=== PATIENT | female | born 1940 | race Asian ===

== ENCOUNTER 2018-07-10 15:47 | Emergency (ER) | payer MEDICARE, OTHER, SELFPAY ==
[2018-07-10 15:51] VITALS: BP 88/46; PULSE 65; RESP 14; TEMP 36.2; O2SAT 100; BMI 21.5
--- NOTE | 2018-07-10 16:50 | PC.NURSE ---
Seen at [facility] 2 days ago and told bronchitis
--- NOTE | 2018-07-10 16:57 | DI.RAD.S_ITS ---
PROCEDURE: XR CHEST 2V INDICATIONS: weakness TECHNIQUE: 2 views of the chest were acquired. COMPARISON: [facility], CHEST 2 VIEW, 11/05/2014, 14:59. [facility], CHEST 2 VIEW, 01/26/2015, 15:38. [facility], CHEST 2 VIEW, 02/01/2015, 15:19. [facility], CHEST 2 VIEW, 01/17/2016, 13:28. FINDINGS: Surgical changes and devices: None. Lungs and pleura: Lungs are clear, yet hyperexpanded. No pleural effusions or pneumothorax. Mediastinum: The cardiac contours are within normal limits. The aorta demonstrates calcification and tortuosity. Bones and chest wall: No suspicious bony abnormalities. Age-appropriate bony degenerative changes are seen. Soft tissues appear unremarkable. IMPRESSION: No acute cardiopulmonary process is seen. Dictated by: Miguel A Carmona M.D. on 07/10/2018 at 16:22 Approved by: Miguel A Carmona M.D. on 07/10/2018 at 16:24
[2018-07-10 17:04] LABS: Add Manual Diff / Slide Review NO; Basophils Absolute Auto 100 /uL (0-100); Basophils Percent Auto 1.5 % (0-2); Eosinophils Absolute Auto 100 /uL (0-450); Eosinophils Percent Auto 0.8 % (2-4); Hematocrit 28.6 % (36-46); Hemoglobin 9.3 g/dL (12.0-16.0); Lymphocytes Absolute Auto 1700 /uL (1100-4500); Lymphocytes Percent Auto 18.7 % (25-40); Mean Corpuscular HGB Conc 32.5 % (30-36); Mean Corpuscular Hemoglobin 32.4 PG (26-34); Mean Corpuscular Volume 99.5 fL (80-100); Monocytes Absolute Auto 1500 /uL (0-900); Monocytes Percent Auto 17.1 % (3-14); Neutrophils Absolute Auto 5600 /uL (1500-7000); Neutrophils Percent Auto 61.9 % (50-75); Red Blood Cell Count 2.87 X10^6/uL (4.0-5.2); Red Cell Distribution Width 18.1 % (11.6-14.8)
[2018-07-10 17:07] LABS: Alanine Aminotransferase 18 IU/L (9-52); Albumin 3.4 g/dL (3.5-5.0); Albumin Globulin Ratio 0.9 (1.0-2.8); Alkaline Phosphatase 48 U/L (38-126); Aspartate Aminotransferase 53 IU/L (14-36); BUN Creatinine Ratio 28.9 (6-22); Bilirubin Total 1.1 mg/dL (0.2-1.3); Blood Urea Nitrogen 55 mg/dL (7-17); Calcium 8.5 mg/dL (8.4-10.2); Carbon Dioxide 20 mmol/L (22-32); Chloride 97 mmol/L (98-107); Estimated Glomerular Filt Rate 25.7 mL/min (>60); Glucose 113 mg/dL (80-110); HEMOLYSIS 91 (0-50); Potassium 3.5 mmol/L (3.4-5.1); Sodium 127 mmol/L (137-145); Total Protein 7.4 g/dL (6.3-8.2)
[2018-07-10 17:12] LABS: Appearance Urine UA CLOUDY; Bilirubin Urine UA NEGATIVE (NEGATIVE); Color Urine UA YELLOW; Glucose Urine UA NEGATIVE (Negative); Ketones Urine UA NEGATIVE (NEGATIVE); Leukocyte Esterase Urine UA 2+ (NEGATIVE); Nitrite Urine UA NEGATIVE (Negative); Occult Blood Urine UA NEGATIVE (Negative); Protein Urine UA NEGATIVE (Negative); Urobilinogen Urine UA 0.2 E.U./dL (0.2)
[2018-07-10 17:20] LABS: Bacteria Urine Many (>30); Culture Indicated Urine Specimen Cultured; RBC Urine 1-5/HPF (0-5/HPF); Squamous Epithelial Cell Urine 0-1 /HPF (0-5/HPF); WBC Urine 10-30/HPF (0-5/HPF)
[2018-07-10 17:21] LABS: Platelet Count 208 X10^3/uL (150-400)
[2018-07-10] MEDS: SODIUM CHLORIDE 0.9% 1,000 ML 1000 ML IV (17:29)
[2018-07-10 18:30] VITALS: BP 113/99; PULSE 77; RESP 20; O2SAT 96
--- NOTE | 2018-07-16 19:53 | ED.DIZZY ---
HPI - Dizziness General Chief Complaint: Dizziness Stated Complaint: orthostatic per RN Time Seen by Provider: 07/10/18 16:37 Source: patient Mode of arrival: ambulatory Limitations: no limitations History of Present Illness HPI Narrative: Patient comes emergency department complaining of lightheadedness. She is currently being treated for for rheumatoid arthritis, and has been anemic for years. She has been dealing with episodes of lightheadedness, and has seen her oncologist and primary doctor for this. However, today she fell weak, and was advised to come to the emergency department. Patient denies fevers. No chest pain or shortness of breath. No cough. No abdominal pain, nausea, vomiting, diarrhea, or dysuria. No black tarry stools or blood in stools or urine. Related Data Home Medications Medication Instructions Recorded Confirmed atenolol 50 mg PO DAILY 07/10/18 07/10/18 celecoxib 200 mg PO DAILY 07/10/18 07/11/18 conjugated estrogens [Premarin] 0.625 mg PO QWEEK 07/10/18 07/11/18 cyclobenzaprine 10 - 20 mg PO BEDTIME 07/10/18 07/11/18 dexamethasone 4 mg PO DAILYX7 07/10/18 07/10/18 diphenhydramine HCl [Benadryl 25 mg PO BEDTIME 07/10/18 07/10/18 Allergy] folic acid 1 mg PO DAILY 07/10/18 07/10/18 gabapentin 100 mg PO TID 07/10/18 07/11/18 hydrochlorothiazide 25 mg PO DAILY 07/10/18 07/10/18 leflunomide [Arava] 20 mg PO DAILY 07/10/18 07/10/18 lovastatin 20 mg PO DAILY 07/10/18 07/11/18 methotrexate sodium 10 mg PO QWEEK 07/10/18 07/11/18 tramadol 50 mg PO TID 07/10/18 07/10/18 potassium chloride 10 meq PO DAILY 07/11/18 07/11/18 Previous Rx's Medication Instructions Recorded epinephrine 0.3 mg IM X1 #1 pac 02/29/16 docusate sodium [DOK] 100 mg PO QDAY #60 tab 06/27/16 cetirizine 10 mg PO QDAY #90 tab 10/02/16 Allergies Allergy/AdvReac Type Severity Reaction Status Date / Time ciprofloxacin [CIPROFLOXACIN] Allergy Unknown Verified 07/10/18 15:51 doxycycline [DOXYCYCLINE] Allergy Unknown Verified 07/10/18 15:51 erythromycin base Allergy Unknown Verified 07/10/18 15:51 [ERYTHROMYCIN BASE] hydrocodone [From VICODIN] Allergy Unknown Verified 07/10/18 15:51 penicillin V [From PEN-VEE K] Allergy Unknown Verified 07/10/18 15:51 Review of Systems Constitutional Denies chills, Denies fever(s), Denies lethargy and Denies weakness Eyes Denies change in vision, Denies eye discharge, Denies irritation and Denies loss of vision ENT Ears, Nose, Mouth, and Throat: Denies change in voice, Denies neck pain and Denies sore throat Cardiovascular Denies chest pain, Denies irregular heart rhythm, Reports lightheadedness, Denies palpitations, Denies dyspnea, Denies dyspnea on exertion and Denies orthopnea Respiratory Denies cough, Denies dyspnea, Denies dyspnea on exertion and Denies wheezing Gastrointestinal Gastrointestinal: Denies abdominal pain, Denies change in bowel habits, Denies diarrhea, Denies nausea and Denies vomiting Genitourinary Denies hematuria, Denies flank pain, Denies urinary incontinence and Denies urinary urgency Musculoskeletal Denies neck pain Integumentary/Breasts Denies pruritus, Denies erythema, Denies rash and Denies wounds Neurologic Denies confusion, Denies loss of vision and Denies weakness Psychiatric Denies anxiety, Denies confusion, Denies depression, Denies homicidal ideation and Denies suicidal ideation Endocrine Denies palpitations Hematologic/Lymphatic Denies easy bruising Allergic/Immunologic Denies wheezing [facility] Medical History (Updated 07/16/18 @ 19:56 by Lata Tabor MD) Rheumatoid arthritis (Acute) Macrocytic anemia (Acute) Orthostatic hypotension (Acute) Acute dehydration (Acute) Anemia (Acute) Surgical History (Updated 07/16/18 @ 19:56 by Lata Tabor MD) Status post appendectomy Status post hemorrhoidectomy Status post hysterectomy History of cataract removal with insertion of prosthetic lens Family History Brother Cancer Diabetes mellitus Heart disease Hypertension Hyperlipidemia Brother Cancer Diabetes mellitus Heart disease Hypertension Hyperlipidemia Sister Age: 89 Heart disease Hypertension Hyperlipidemia Social History Smoking Status: Smoker, status unknown Family History Brother Cancer Diabetes mellitus Heart disease Hypertension Hyperlipidemia Brother Cancer Diabetes mellitus Heart disease Hypertension Hyperlipidemia Sister Age: 89 Heart disease Hypertension Hyperlipidemia Social History Smoking Status: Smoker, status unknown Exam Initial Vital Signs Initial Vital Signs: Vital Signs Temperature 97.1 F L 07/10/18 15:51 Pulse Rate 65 07/10/18 15:51 Respiratory Rate 14 07/10/18 15:51 Blood Pressure 88/46 L 07/10/18 15:51 Pulse Oximetry 100 07/10/18 15:51 Const General: cooperative and well developed Nutritional Appearance: well nourished Orientation: alert, awake, oriented x3 and not confused HENIA Head: normocephalic and atraumatic Ears: external ears normal Nose: external nose normal and No nasal discharge Face and sinus: face symmetric and No dry mucous membranes Mouth: oral mucosae normal and moist mucous membranes Teeth and gingiva: dentition normal Eyes General: appearance normal, both eyes and all related structures Eyelids: eyelids normal Conjunctivae: conjunctivae normal Sclera: sclerae normal Pupils: PERRL EOM: EOM intact bilaterally Neck Neck: normal visual inspection, trachea midline, No lymphadenopathy, No midline deformity and No JVD Lymphatic: No lymphedema Chest Chest: normal inspection of the chest Resp Effort & Inspection: normal respiratory effort, able to speak in complete sentences, no respiratory distress and no use of accessory muscles Auscultation: clear to auscultation bilaterally, no rales, no rhonchi and no wheezes Cardio Rate: regular rate Rhythm: regular rhythm Heart Sounds: no click, no gallops, no murmurs and no rubs Pulses: normal peripheral pulses GI Inspection: non-distended Palpation: soft, no hepatosplenomegaly, No guarding, No pulsatile mass and No tender Auscultation: normal bowel sounds Back/Spine/Pelvis Back: No CVA tenderness Cervical Spine: cervical ROM normal and No pain with cervical ROM Thoracic/Lumbar Spine: thoracic and lumbar spine normal to inspection Skin General: no rashes or lesions noted, No jaundice and No petechiae Neuro General: alert, oriented x3, gait normal and no focal motor deficits Speech: speech normal Extrem General: full ROM, no clubbing, cyanosis or edema, no pedal edema and no calf tenderness Psych Appearance: well kempt Mental Status: mental status grossly normal Attitude: cooperative Thought Content: normal and suicidality Judgment: judgment good Course Course Narrative: Patient was treated with IV fluids, and worked up for her lightheadedness with labs and EKG. Patient was found to be feeling better after IV fluids. Her hemoglobin was 9.3, which was comparable to prior levels we have had for her. I discussed with the patient that it is important to stay hydrated. We have discussed follow-up, as well as the usual indications for return. Orders Ordered: Discontinued Medications Sodium Chloride (Normal Saline 0.9%) 1,000 mls @ 1,000 mls/hr IV BOLUS ONE Stop: 07/10/18 18:27 Last Infusion: 07/10/18 18:22 Dose: 0 mls/hr Admin: 07/10/18 17:29 Dose: 1,000 mls/hr MDM - Dizziness Medical Records Attestation: I reviewed the patient's medical records. Lab Data Attestation: I reviewed the patient's lab results. Result diagrams: 07/10/18 16:40 07/10/18 16:40 Lab Results 07/10/18 07/10/18 07/10/18 Range/Units 16:40 16:40 17:05 WBC 9.0 (4.5-11.0) X10^3/uL RBC 2.87 L (4.0-5.2) X10^6/uL Hgb 9.3 L (12.0-16.0) g/dL Hct 28.6 L (36-46) % MCV 99.5 (80-100) fL MCH 32.4 (26-34) PG MCHC 32.5 (30-36) % RDW 18.1 H (11.6-14.8) % Plt Count 208 (150-400) X10^3/uL Neut % (Auto) 61.9 (50-75) % Lymph % (Auto) 18.7 L (25-40) % [place] % (Auto) 17.1 H (3-14) % Eos % (Auto) 0.8 L (2-4) % Baso % (Auto) 1.5 (0-2) % Neut # (Auto) 5600 (8282-2244) /uL Lymph # (Auto) 1700 (7323-9638) /uL [place] # (Auto) 1500 H (0-900) /uL Eos # (Auto) 100 (0-450) /uL Baso # (Auto) 100 (0-100) /uL Sodium 127 L (137-145) mmol/L Potassium 3.5 (3.4-5.1) mmol/L Chloride 97 L (98-107) mmol/L Carbon Dioxide 20 L (22-32) mmol/L BUN 55 H (7-17) mg/dL Creatinine 1.90 H (0.52-1.04) mg/dL Estimated GFR 25.7 L (>60) mL/min BUN/Creatinine Ratio 28.9 H (6-22) Glucose 113 H (80-110) mg/dL Calcium 8.5 (8.4-10.2) mg/dL Total Bilirubin 1.1 (0.2-1.3) mg/dL AST 53 H (14-36) IU/L ALT 18 (9-52) IU/L Alkaline Phosphatase 48 (38-126) U/L Total Protein 7.4 (6.3-8.2) g/dL Albumin 3.4 L (3.5-5.0) g/dL Globulin 4.0 (1.7-4.1) g/dL Albumin/Globulin Ratio 0.9 L (1.0-2.8) Urine Color Yellow Urine Appearance Cloudy Urine pH 5.0 (4.5-8.0) Ur Specific [place] 1.020 (1.000-1.035) Urine Protein Negative (Negative) Urine Glucose (UA) Negative (Negative) g/dL Urine Ketones Negative (NEGATIVE) Urine Occult Blood Negative (Negative) Urine Nitrate Negative (Negative) Urine Bilirubin Negative (NEGATIVE) Urine Urobilinogen 0.2 (0.2) E.U./dL Ur Leukocyte Esterase 2+ H (NEGATIVE) Urine RBC 1-5/hpf (0-5/HPF) Urine WBC 10-30/hpf H (0-5/HPF) Ur Squamous Epith Cells 0-1 /hpf (0-5/HPF) Urine Bacteria Many (>30) H (None) Ur Culture Indicated? Specimen cultured Discharge Plan Departure Patient Disposition: Home Clinical Impression: Acute dehydration Anemia Qualifiers: Anemia type: unspecified type Qualified Code(s): D64.9 - Anemia, unspecified Discharge Date/Time: 07/10/18 18:57 Interventions: ED Discharge Assessment Last Done: 07/10/18 18:56 Instructions: DI for Dehydration -- Adult, DI for Iron Deficiency Anemia-Adult Activity Restrictions/Additional Instructions: Your labs are not significantly changed from previous values today. You have shown signs of dehydration, and have been treated for this with IV fluids. Please continue to drink plenty of fluids. You may find it helpful to keep a large jug at your bedside or wherever you are and have a goal of drinking the whole thing throughout the course the day. Please also try to eat some nutritious food throughout the day to help keep your energy levels up. There is no evidence of any infectious process at this time. As such, no antibiotics are indicated. Please follow up with your primary care physician for further concerns. Prescriptions: No Action epinephrine 0.3 MG/0.3 ML auto-injector 0.3 mg IM X1 Qty: 1 RF: 1 docusate sodium [DOK] 100 MG tablet 100 mg PO QDAY Qty: 60 RF: 2 cetirizine 10 MG tablet 10 mg PO QDAY Qty: 90 RF: 1 celecoxib 200 mg capsule 200 mg PO DAILY RF: 0 leflunomide [Arava] 20 mg tablet 20 mg PO DAILY RF: 0 atenolol 50 mg tablet 50 mg PO DAILY RF: 0 cyclobenzaprine 10 mg tablet 10 - 20 mg PO BEDTIME RF: 0 lovastatin 10 mg tablet 20 mg PO DAILY RF: 0 tramadol 50 mg tablet 50 mg PO TID RF: 0 methotrexate sodium 2.5 mg tablet 10 mg PO QWEEK RF: 0 dexamethasone 4 mg tablet 4 mg PO DAILYX7 RF: 0 Premarin 0.625 mg tablet 0.625 mg PO QWEEK RF: 0 hydrochlorothiazide 25 mg tablet 25 mg PO DAILY RF: 0 gabapentin 100 mg capsule 100 mg PO TID RF: 0 diphenhydramine HCl [Benadryl Allergy] 25 MG tablet 25 mg PO BEDTIME RF: 0 folic acid 1 MG tablet 1 mg PO DAILY RF: 0 potassium chloride 10 MEQ capsule, extended release 10 meq PO DAILY RF: 0 Referrals: Latonya Greenfield DO [Primary Care Provider] -
--- NOTE | 2018-07-16 20:00 | ED_ITS ---
HPI - Dizziness General Chief Complaint: Dizziness Stated Complaint: orthostatic per RN Time Seen by Provider: 07/10/18 16:37 Source: patient Mode of arrival: ambulatory Limitations: no limitations History of Present Illness HPI Narrative: Patient comes emergency department complaining of lightheadedness. She is currently being treated for for rheumatoid arthritis, and has been anemic for years. She has been dealing with episodes of lightheadedness, and has seen her oncologist and primary doctor for this. How ever, today she fell weak, and was advised to come to the emergency department. Patient denies fevers. No chest pain or shortness of breath. No cough. No abdominal pain, nausea, vomiting, diarrhea, or dysuria. No black tarry stools or blood in stools or urine. Related Data Home Medications Medication Instructions Recorded Confirmed atenolol 50 mg PO DAILY 07/10/18 07/10/18 celecoxib 200 mg PO DAILY 07/10/18 07/11/18 conjugated estrogens [Premarin] 0.625 mg PO QWEEK 07/10/18 07/11/18 cyclobenzaprine 10 - 20 mg PO BEDTIME 07/10/18 07/11/18 dexamethasone 4 mg PO DAILYX7 07/10/18 07/10/18 diphenhydramine HCl [Benadryl 25 mg PO BEDTIME 07/10/18 07/10/18 Allergy] folic acid 1 mg PO DAILY 07/10/18 07/10/18 gabapentin 100 mg PO TID 07/10/18 07/11/18 hydrochlorothiazide 25 mg PO DAILY 07/10/18 07/10/18 leflunomide [Arava] 20 mg PO DAILY 07/10/18 07/10/18 lovastatin 20 mg PO DAILY 07/10/18 07/11/18 methotrexate sodium 10 mg PO QWEEK 07/10/18 07/11/18 tramadol 50 mg PO TID 07/10/18 07/10/18 potassium chloride 10 meq PO DAILY 07/11/18 07/11/18 Previous Rx's Medication Instructions Recorded epinephrine 0.3 mg IM X1 #1 pac 02/29/16 docusate sodium [DOK] 100 mg PO QDAY #60 tab 06/27/16 cetirizine 10 mg PO QDAY #90 tab 10/02/16 Allergies Allergy/AdvReac Type Severity Reaction Status Date / Time ciprofloxacin [CIPROFLOXACIN] Allergy Unknown Verified 07/10/18 15:51 doxycycline [DOXYCYCLINE] Allergy Unknown Verified 07/10/18 15:51 erythromycin base Allergy Unknown Verified 07/10/18 15:51 [ERYTHROMYCIN BASE] hydrocodone [From VICODIN] Allergy Unknown Verified 07/10/18 15:51 penicillin V [From PEN-VEE K] Allergy Unknown Verified 07/10/18 15:51 Review of Systems Constitutional Denies chills, Denies fever(s), Denies lethargy and Denies weakness Eyes Denies change in vision, Denies eye discharge, Denies irritation and Denies loss of vision ENT Ears, Nose, Mouth, and Throat: Denies change in voice, Denies neck pain and Denies sore throat Cardiovascular Denies chest pain, Denies irregular heart rhythm, Reports lightheadedness, Denies palpitations, Denies dyspnea, Denies dyspnea on exertion and Denies ort hopnea Respiratory Denies cough, Denies dyspnea, Denies dyspnea on exertion and Denies wheezing Gastrointestinal Gastrointestinal: Denies abdominal pain, Denies change in bowel habits, Denies diarrhea, Denies nausea and Denies vomiting Genitourinary Denies hematuria, Denies flank pain, Denies urinary incontinence and Denies urinary urgency Musculoskeletal Denies neck pain Integumentary/Breasts Denies pruritus, Denies erythema, Denies rash and Denies wounds Neurologic Denies confusion, Denies loss of vision and Denies weakness Psychiatric Denies anxiety, Denies confusion, Denies depression, Denies homicidal ideation and Denies suicidal ideation Endocrine Denies palpitations Hematologic/Lymphatic Denies easy bruising Allergic/Immunologic Denies wheezing ON LICENSE OF [facility] Medical History (Updated 07/16/18 @ 19:56 by Lata Tabor MD) Rheumatoid arthritis (Acute) Macrocytic anemia (Acute) Orthostatic hypotension (Acute) Acute dehydration (Acute) Anemia (Acute) Surgical History (Updated 07/16/18 @ 19:56 by Lata Tabor MD) Status post appendectomy Status post hemorrhoidectomy Status post hysterectomy History of cataract removal with insertion of prosthetic lens Family History Brother Cancer Diabetes mellitus Heart disease Hypertension Hyperlipidemia Brother Cancer Diabetes mellitus Heart disease Hypertension Hyperlipidemia Sister Age: 89 Heart disease Hypertension Hyperlipidemia Social History Smoking Status: Smoker, status unknown Family History Brother Cancer Diabetes mellitus Heart disease Hypertension Hyperlipidemia Brother Cancer Diabetes mellitus Heart disease Hypertension Hyperlipidemia Sister Age: 89 Heart disease Hypertension Hyperlipidemia Social History Smoking Status: Smoker, status unknown Exam Initial Vital Signs Initial Vital Signs: Vital Signs Temperature 97.1 F L 07/10/18 15:51 Pulse Rate 65 07/10/18 15:51 Respiratory Rate 14 07/10/18 15:51 Blood Pressure 88/46 L 07/10/18 15:51 Pulse Oximetry 100 07/10/18 15:51 Const General: cooperative and well developed Nutritional Appearance: well nourished Orientation: alert, awake, oriented x3 and not confused HENID Head: normocephalic and atraumatic Ears: external ears normal Nose: external nose normal and No nasal discharge Face and sinus: face symmetric and No dry mucous membranes Mouth: oral mucosae normal and moist mucous membranes Teeth and gingiva: dentition normal Eyes General: appearance normal, both eyes and all related structures Eyelids: eyelids normal Conjunctivae: conjunctivae normal Sclera: sclerae normal Pupils: PERRL EOM: EOM intact bilaterally Neck Neck: normal visual inspection, trachea midline, No lymphadenopathy, No midline deformity and No JVD Lymphatic: No lymphedema Chest Chest: normal inspection of the chest Resp Effort & Inspection: normal respiratory effort, able to speak in complete sent ences, no respiratory distress and no use of accessory muscles Auscultation: clear to auscultation bilaterally, no rales, no rhonchi and no wheezes Cardio Rate: regular rate Rhythm: regular rhythm Heart Sounds: no click, no gallops, no murmurs and no rubs Pulses: normal peripheral pulses GI Inspection: non-distended Palpation: soft, no hepatosplenomegaly, No guarding, No pulsatile mass and No tender Auscultation: normal bowel sounds Back/Spine/Pelvis Back: No CVA tenderness Cervical Spine: cervical ROM normal and No pain with cervical ROM Thoracic/Lumbar Spine: thoracic and lumbar spine normal to inspection Skin General: no rashes or lesions noted, No jaundice and No petechiae Neuro General: alert, oriented x3, gait normal and no focal motor deficits Speech: speech normal Extrem General: full ROM, no clubbing, cyanosis or edema, no pedal edema and no calf tenderness Psych Appearance: well kempt Mental Status: mental status grossly normal Attitude: cooperative Thought Content: normal and suicidality Judgment: judgment good Course Course Narrative: Patient was treated with IV fluids, and worked up for her lightheadedness with labs and EKG. Patient was found to be feeling better after IV fluids. Her hemoglobin was 9.3, which was comparable to prior levels we have had for her. I discussed with the patient that it is important to stay hydrated. We have discussed follow-up, as well as the usual indications for return. Orders Ordered: Discontinued Medications Sodium Chloride (Normal Saline 0.9%) 1,000 mls @ 1,000 mls/hr IV BOLUS ONE Stop: 07/10/18 18:27 Last Infusion: 07/10/18 18:22 Dose: 0 mls/hr Admin: 07/10/18 17:29 Dose: 1,000 mls/hr MDM - Dizziness Medical Records Attestation: I reviewed the patient's medical records. Lab Data Attestation: I reviewed the patient's lab results. Result diagrams: 07/10/18 16:40 07/10/18 16:40 Lab Results 07/10/18 07/10/18 07/10/18 Range/Units 16:40 16:40 17:05 WBC 9.0 (4.5-11.0) X10^3/uL RBC 2.87 L (4.0-5.2) X10^6/uL Hgb 9.3 L (12.0-16.0) g/dL Hct 28.6 L (36-46) % MCV 99.5 (80-100) fL MCH 32.4 (26-34) PG MCHC 32.5 (30-36) % RDW 18.1 H (11.6-14.8) % Plt Count 208 (150-400) X10^3/uL Neut % (Auto) 61.9 (50-75) % Lymph % (Auto) 18.7 L (25-40) % [place] % (Auto) 17.1 H (3-14) % Eos % (Auto) 0.8 L (2-4) % Baso % (Auto) 1.5 (0-2) % Neut # (Auto) 5600 (6608-0160) /uL Lymph # (Auto) 1700 (2237-5693) /uL [place] # (Auto) 1500 H (0-900) /uL Eos # (Auto) 100 (0-450) /uL Baso # (Auto) 100 (0-100) /uL Sodium 127 L (137-145) mmol/L Potassium 3.5 (3.4-5.1) mmol/L Chloride 97 L (98-107) mmol/L Carbon Dioxide 20 L (22-32) mmol/L BUN 55 H (7-17) mg/dL Creatinine 1.90 H (0.52-1.04) mg/dL Estimated GFR 25.7 L (>60) mL/min BUN/Creatinine Ratio 28.9 H (6-22) Glucose 113 H (80-110) mg/dL Calcium 8.5 (8.4-10.2) mg/dL Total Bilirubin 1.1 (0.2-1.3) mg/dL AST 53 H (14-36) IU/L ALT 18 (9-52) IU/L Alkaline Phosphatase 48 (38-126) U/L Total Protein 7.4 (6.3-8.2) g/dL Albumin 3.4 L (3.5-5.0) g/dL Globulin 4.0 (1.7-4.1) g/dL Albumin/Globulin Ratio 0.9 L (1.0-2.8) Urine Color Yellow Urine Appearance Cloudy Urine pH 5.0 (4.5-8.0) Ur Specific [place] 1.020 (1.000-1.035) Urine Protein Negative (Negative) Urine Glucose (UA) Negative (Negative) g/dL Urine Ketones Negative (NEGATIVE) Urine Occult Blood Negative (Negative) Urine Nitrate Negative (Negative) Urine Bilirubin Negative (NEGATIVE) Urine Urobilinogen 0.2 (0.2) E.U./dL Ur Leukocyte Esterase 2+ H (NEGATIVE) Urine RBC 1-5/hpf (0-5/HPF) Urine WBC 10-30/hpf H (0-5/HPF) Ur Squamous Epith Cells 0-1 /hpf (0-5/HPF) Urine Bacteria Many (>30) H (None) Ur Culture Indicated? Specimen cultured Discharge Plan Departure Patient Disposition: Home Clinical Impression: Acute dehydration Anemia Qualifiers: Anemia type: unspecified type Qualified Code(s): D64.9 - Anemia, unspecified Discharge Date/Time: 07/10/18 18:57 Interventions: ED Discharge Assessment Last Done: 07/10/18 18:56 Instructions: DI for Dehydration -- Adult, DI for Iron Deficiency Anemia-Adult Activity Restrictions/Additional Instructions: Your labs are not significantly changed from previous values today. You have shown signs of dehydration, and have been treated for this with IV fluids. Please continue to drink plenty of fluids. You may find it helpful to keep a large jug at your bedside or wherever you are and have a goal of drinking the whole thing throughout the course the day. Please also try to eat some nutritious food throughout the day to help keep your energy levels up. There is no evidence of any infectious process at this time. As such, no antibiotics are indicated. Please follow up with your primary care physician for further concerns. Prescriptions: No Action epinephrine 0.3 MG/0.3 ML auto-injector 0.3 mg IM X1 Qty: 1 RF: 1 docusate sodium [DOK] 100 MG tablet 100 mg PO QDAY Qty: 60 RF: 2 cetirizine 10 MG tablet 10 mg PO QDAY Qty: 90 RF: 1 celecoxib 200 mg capsule 200 mg PO DAILY RF: 0 leflunomide [Arava] 20 mg tablet 20 mg PO DAILY RF: 0 atenolol 50 mg tablet 50 mg PO DAILY RF: 0 cyclobenzaprine 10 mg tablet 10 - 20 mg PO BEDTIME RF: 0 lovastatin 10 mg tablet 20 mg PO DAILY RF: 0 tramadol 50 mg tablet 50 mg PO TID RF: 0 methotrexate sodium 2.5 mg tablet 10 mg PO QWEEK RF: 0 dexamethasone 4 mg tablet 4 mg PO DAILYX7 RF: 0 Premarin 0.625 mg tablet 0.625 mg PO QWEEK RF: 0 hydrochlorothiazide 25 mg tablet 25 mg PO DAILY RF: 0 gabapentin 100 mg capsule 100 mg PO TID RF: 0 diphenhydramine HCl [Benadryl Allergy] 25 MG tablet 25 mg PO BEDTIME RF: 0 folic acid 1 MG tablet 1 mg PO DAILY RF: 0 potassium chloride 10 MEQ capsule, extended release 10 meq PO DAILY RF: 0 Referrals: GinLatonya, [Primary Care Provider] -
== END 2018-07-10 18:57 | disposition home or self-care (01) ==
PROVIDERS: Emergency Provider Emergency Medicine; Family Provider Family Medicine; PCP Family Medicine
DX: E86.0 Dehydration (principal); D64.9 Anemia, unspecified; R42 Dizziness and giddiness; I95.9 Hypotension, unspecified
CPT/HCPCS: 36591; 71046; 80053; 81001; 85025; 87077; 87086; 87186; 93005; 96360; 99213; 99283; 99285

== ENCOUNTER 2018-07-29 23:17 | Emergency (ER) | payer MEDICARE, OTHER, SELFPAY ==
--- NOTE | 2018-07-29 23:21 | ED_ITS ---
HPI - General Adult General Chief complaint: Neuro Symptoms/Deficit Stated complaint: Numbness in Arms Time Seen by Provider: 07/29/18 23:21 Source: patient Mode of arrival: EMS Limitations: no limitations History of Present Illness HPI narrative: 77-year-old female with history of rheumatoid arthritis. Received a blood transfusion today by her financial health counselor for a chronic anemia of what appears to be unknown etiology. This is the 1st blood transfusion that she has ever received. She states that it was over at approximately noon. She stated that approximately 1 hour prior to arrival here in the emergency dep artment she started having tingling in her face in her upper extremities. Also tingling in her mouth. No problems breathing. No nausea vomiting. No urinary symptoms. No rashes. No abdominal pain. Related Data Home Medications Medication Instructions Recorded Confirmed atenolol 50 mg PO DAILY 07/10/18 07/10/18 celecoxib 200 mg PO DAILY 07/10/18 07/11/18 conjugated estrogens [Premarin] 0.625 mg PO QWEEK 07/10/18 07/11/18 cyclobenzaprine 10 - 20 mg PO BEDTIME 07/10/18 07/11/18 diphenhydramine HCl [Benadryl 25 mg PO BEDTIME 07/10/18 07/10/18 Allergy] folic acid 1 mg PO DAILY 07/10/18 07/10/18 gabapentin 100 mg PO TID 07/10/18 07/11/18 hydrochlorothiazide 25 mg PO DAILY 07/10/18 07/10/18 leflunomide [Arava] 20 mg PO DAILY 07/10/18 07/10/18 lovastatin 20 mg PO DAILY 07/10/18 07/11/18 methotrexate sodium 10 mg PO QWEEK 07/10/18 07/21/18 tramadol 50 mg PO TID 07/10/18 07/10/18 potassium chloride 10 meq PO DAILY 07/11/18 07/11/18 Bactrim DS 07/21/18 ferrous sulfate 324 mg PO BID 07/21/18 07/21/18 Previous Rx's Medication Instructions Recorded epinephrine 0.3 mg IM X1 #1 pac 02/29/16 docusate sodium [DOK] 100 mg PO QDAY #60 tab 06/27/16 cetirizine 10 mg PO QDAY #90 tab 10/02/16 Allergies Allergy/AdvReac Type Severity Reaction Status Date / Time ciprofloxacin [CIPROFLOXACIN] Allergy Unknown Verified 07/10/18 15:51 doxycycline [DOXYCYCLINE] Allergy Unknown Verified 07/10/18 15:51 erythromycin base Allergy Unknown Verified 07/10/18 15:51 [ERYTHROMYCIN BASE] hydrocodone [From VICODIN] Allergy Unknown Verified 07/10/18 15:51 penicillin V [From PEN-VEE K] Allergy Unknown Verified 07/10/18 15:51 Review of Systems Constitutional Denies chills, Denies fever(s) and Denies headache(s) Eyes Denies change in vision ENT Ears, Nose, Mouth, and Throat: Denies dysphagia, Denies facial pain, Denies headache(s), Denies lip swelling and Denies sore throat Comments: Tingling in her throat Cardiovascular Denies edema and Denies dyspnea Respiratory Denies cough and Denies dyspnea Gastrointestinal Gastrointestinal: Denies abdominal pain, Denies dysphagia, Denies nausea and Denies vomiting Genitourinary Denies dysuria Musculoskeletal Denies myalgias, Denies arthralgias and Reports tingling Integumentary/Breasts Denies rash and Denies sores Neurologic Denies headache(s) and Reports tingling Hematologic/Lymphatic Denies easy bleeding and Denies easy bruising Allergic/Immunologic Denies lip swelling [facility] Medical History Rheumatoid arthritis (Acute) Macrocytic anemia (Acute) Orthostatic hypotension (Acute) Acute dehydration (Inactive) Anemia (Inactive) Surgical History Status post appendectomy Status post hemorrhoidectomy Status post hysterectomy History of cataract removal with insertion of prosthetic lens Family History Brother Cancer Diabetes mellitus Heart disease Hypertension Hyperlipidemia Brother Cancer Diabetes mellitus Heart disease Hypertension Hyperlipidemia Sister Age: 89 Heart disease Hypertension Hyperlipidemia Social History Smoking Status: Smoker, status unknown Family History Brother Cancer Diabetes mellitus Heart disease Hypertension Hyperlipidemia Brother Cancer Diabetes mellitus Heart disease Hypertension Hyperlipidemia Sister Age: 89 Heart disease Hypertension Hyperlipidemia Social History Smoking Status: Smoker, status unknown Exam Initial Vital Signs Initial Vital Signs: Vital Signs Temperature 97.5 F L 07/29/18 23:24 Pulse Rate 72 07/29/18 23:24 Respiratory Rate 18 07/29/18 23:24 Blood Pressure 159/77 H 07/29/18 23:24 Pulse Oximetry 97 07/29/18 23:24 Const General: cooperative, comfortable, well developed, well groomed and No acute distress Orientation: alert, awake and oriented x3 HENMT Head: normal to inspection and normocephalic Nose: external nose normal Face and sinus: normal facial exam Mouth: oral mucosae normal Throat: posterior oropharynx normal, uvula midline, normal posterior oropharynx, uvula not displaced and no uvular edema Eyes General: appearance normal, both eyes and all related structures Neck Lymphatic: No lymphadenopathy Resp Effort & Inspection: normal respiratory effort Auscultation: clear to auscultation bilaterally Cardio Rate: regular rate Rhythm: regular rhythm Pulses: radial pulses present GI Inspection: non-distended Palpation: soft and No firm Skin Lesions: no lesions Rashes: no rashes Neuro General: alert, awake and oriented x3 Cognition: normal cognition Speech: speech normal Extrem General: normal to inspection, capillary refill normal and No edema Psych Appearance: grossly normal and well kempt Scores GCS [place] coma scale eye opening: Spontaneous [place] coma scale verbal response: Orientated [place] coma scale motor response: Obey commands [place] coma scale total score: 15 Course Orders Ordered: ED Orders 07/29/18 23:22 EKG-12 Lead Stat 07/29/18 23:37 Complete Blood Count AUTO DIFF Stat Comprehensive Metabolic Panel Stat Lipase Stat Magnesium Stat Phosphorous Stat Troponin I Stat 07/30/18 00:18 XR soft tissue neck Stat Discontinued Medications Diphenhydramine HCl (Benadryl) 25 mg IV NOW ONE Stop: 07/30/18 01:27 Last Admin: 07/30/18 01:38 Dose: 25 mg Famotidine (Pepcid) 20 mg in 50 mls @ 200 mls/hr IV NOW ONE Stop: 07/30/18 01:40 Last Infusion: 07/30/18 02:08 Dose: 0 mls/hr Admin: 07/30/18 01:45 Dose: 200 mls/hr Methylprednisolone (Solu-Medrol 125 Mg Vial) 125 mg IV NOW ONE Stop: 07/30/18 01:27 Last Admin: 07/30/18 01:39 Dose: 125 mg Vital Signs - 8 hr 07/29/18 23:24 07/30/18 00:45 Temperature 97.5 F L Pulse Rate 72 92 H Respiratory Rate 18 18 Blood Pressure 159/77 H Blood Pressure [Left Arm] 136/64 Pulse Oximetry 97 98 Medical Decision Making Lab Data Lab results reviewed: Yes I reviewed the patient's lab results. Result diagrams: 07/29/18 23:37 07/29/18 23:37 Lab Results 07/29/18 07/29/18 Range/Units 23:37 23:37 WBC 6.8 (4.5-11.0) X10^3/uL RBC 3.34 L (4.0-5.2) X10^6/uL Hgb 10.8 L (12.0-16.0) g/dL Hct 32.6 L (36-46) % MCV 97.7 D (80-100) fL MCH 32.3 (26-34) PG MCHC 33.1 (30-36) % RDW 20.9 H (11.6-14.8) % Plt Count 133 L (150-400) X10^3/uL Neut % (Auto) Not Reportable Lymph % (Auto) Not Reportable [place] % (Auto) Not Reportable Eos % (Auto) Not Reportable Baso % (Auto) Not Reportable Lymph # (Auto) Not Reportable [place] # (Auto) Not Reportable Baso # (Auto) Not Reportable Total Counted 100 Seg Neutrophils % 41.0 (38-70) % Band Neutrophils % 1.0 L (3-7) % Lymphocytes % (Manual) 38.0 (25-45) % Atypical Lymphs % 1.0 H ( - 0) % Monocytes % (Manual) 18.0 H (2-11) % Eosinophils % (Manual) 1.0 L (2-4) % Neutrophils # (Manual) 2856 L (3263-8682) /uL RBC Morphology See below Polychromasia 1+ H Anisocytosis 2+ H Sodium 137 (137-145) mmol/L Potassium 3.8 (3.4-5.1) mmol/L Chloride 109 H (98-107) mmol/L Carbon Dioxide 21 L (22-32) mmol/L BUN 26 H (7-17) mg/dL Creatinine 1.60 H (0.52-1.04) mg/dL Estimated GFR 31.3 L (>60) mL/min BUN/Creatinine Ratio 16.3 (6-22) Glucose 105 (80-110) mg/dL Calcium 8.4 (8.4-10.2) mg/dL Phosphorus 3.4 (2.8-4.1) mg/dL Magnesium 1.6 (1.6-2.3) mg/dL Total Bilirubin 0.7 (0.2-1.3) mg/dL AST 28 (14-36) IU/L ALT 18 (9-52) IU/L Alkaline Phosphatase 54 (38-126) U/L Troponin I < 0.012 (0.01-0.034) ng/mL Total Protein 6.6 (6.3-8.2) g/dL Albumin 3.2 L (3.5-5.0) g/dL Globulin 3.4 (1.7-4.1) g/dL Albumin/Globulin Ratio 0.9 L (1.0-2.8) Lipase 125 (23-300) U/L Imaging Data Chest x-ray: Radiologist's impression: Possible epiglottitis Epiglottis measures 8 mm in thickness Unremarkable air way and paravertebral soft tissues. No soft tissue gas or radiopaque foreign body. ECG Data Attestation: I personally reviewed and interpreted this ECG as follows: Prior ECG tracings: not available for review Interpretation: Sinus rhythm Ventricular rate 81 Left axis deviation Normal QRS Normal QTC One Pac No ST T wave changes MDM Narrative Medical decision making narrative: Patient without respiratory distress. She is afebrile. Does not have elevated white blood cell count. She is tolerating her secretions. She states that it is not painful for her to swallow it just feels like her saliva is getting stuck in her throat. She is lying flat without any problems. The x-ray of her neck was concerning for epiglottitis secondary to an enlarged epiglottis the vein mm. Her physical exam is not consistent with this. She was not given antibiotics here in the emergency department. Another consideration would be angioedema potentially from her blood transfusion earlier today. She stated this was the 1st blood transfusion that she has ever received. She has had iron infusions in the past. She has no other signs of anaphylaxis. No skin rashes. No abdominal tenderness. No vomiting. She was given Benadryl and Solu-Medrol and Pepcid here in the ER. I do feel that the patient requires an airway watch. I discussed the case with Dr. Olmstead it [facility] who accepts the patient in transfer. I did discuss the diagnosis in the transfer the patient and her who is at bedside. They expressed understanding and agreement plan. Discharge Plan Departure Patient Disposition: [facility] Clinical Impression: Angioedema Qualifiers: Encounter type: initial encounter Qualified Code(s): T78.3XXA - Angioneurotic edema, initial encounter Prescriptions: No Action epinephrine 0.3 MG/0.3 ML auto-injector 0.3 mg IM X1 Qty: 1 RF: 1 docusate sodium [DOK] 100 MG tablet 100 mg PO QDAY Qty: 60 RF: 2 cetirizine 10 MG tablet 10 mg PO QDAY Qty: 90 RF: 1 celecoxib 200 mg capsule 200 mg PO DAILY RF: 0 leflunomide [Arava] 20 mg tablet 20 mg PO DAILY RF: 0 atenolol 50 mg tablet 50 mg PO DAILY RF: 0 cyclobenzaprine 10 mg tablet 10 - 20 mg PO BEDTIME RF: 0 lovastatin 10 mg tablet 20 mg PO DAILY RF: 0 tramadol 50 mg tablet 50 mg PO TID RF: 0 methotrexate sodium 2.5 mg tablet 10 mg PO QWEEK RF: 0 Premarin 0.625 mg tablet 0.625 mg PO QWEEK RF: 0 hydrochlorothiazide 25 mg tablet 25 mg PO DAILY RF: 0 gabapentin 100 mg capsule 100 mg PO TID RF: 0 diphenhydramine HCl [Benadryl Allergy] 25 MG tablet 25 mg PO BEDTIME RF: 0 folic acid 1 MG tablet 1 mg PO DAILY RF: 0 potassium chloride 10 MEQ capsule, extended release 10 meq PO DAILY RF: 0 ferrous sulfate 324 mg (65 mg iron) Tablet,Delayed Release (Dr/Ec) 324 mg PO BID RF: 0 Bactrim DS RF: 0 Referrals: Erasto Mcfarland MD [Primary Care Provider] -
[2018-07-29 23:24] VITALS: BP 159/77; PULSE 72; RESP 18; TEMP 36.4; O2SAT 97; BMI 21.4
[2018-07-29 23:50] LABS: Hematocrit 32.6 % (36-46); Hemoglobin 10.8 g/dL (12.0-16.0); Mean Corpuscular HGB Conc 33.1 % (30-36); Mean Corpuscular Hemoglobin 32.3 PG (26-34); Mean Corpuscular Volume 97.7 fL (80-100); Platelet Count 133 X10^3/uL (150-400); Red Blood Cell Count 3.34 X10^6/uL (4.0-5.2); Red Cell Distribution Width 20.9 % (11.6-14.8); White Blood Cell Count 6.8 X10^3/uL (4.5-11.0)
[2018-07-29 23:51] LABS: Add Manual Diff / Slide Review YES
[2018-07-29 23:55] LABS: Alanine Aminotransferase 18 IU/L (9-52); Albumin 3.2 g/dL (3.5-5.0); Albumin Globulin Ratio 0.9 (1.0-2.8); Alkaline Phosphatase 54 U/L (38-126); Aspartate Aminotransferase 28 IU/L (14-36); BUN Creatinine Ratio 16.3 (6-22); Bilirubin Total 0.7 mg/dL (0.2-1.3); Blood Urea Nitrogen 26 mg/dL (7-17); Calcium 8.4 mg/dL (8.4-10.2); Carbon Dioxide 21 mmol/L (22-32); Chloride 109 mmol/L (98-107); Estimated Glomerular Filt Rate 31.3 mL/min (>60); Globulin 3.4 g/dL (1.7-4.1); Glucose 105 mg/dL (80-110); HEMOLYSIS < 15 (0-50); Lipase 125 U/L (23-300); Magnesium 1.6 mg/dL (1.6-2.3); Phosphorous 3.4 mg/dL (2.8-4.1); Potassium 3.8 mmol/L (3.4-5.1); Sodium 137 mmol/L (137-145); Total Protein 6.6 g/dL (6.3-8.2)
[2018-07-30 00:06] LABS: Troponin I < 0.012 ng/mL (0.01-0.034)
[2018-07-30 00:09] LABS: Neutrophils Absolute Manual 2856 /uL (3000-5900); Total Cells Counted 100
[2018-07-30 00:10] LABS: Anisocytosis 2+; Polychromasia 1+
--- NOTE | 2018-07-30 00:18 | DI.RAD.S_ITS ---
PROCEDURE: XR SOFT TISSUE NECK INDICATIONS: Problem swallowing TECHNIQUE: 2 views of the neck were acquired. COMPARISON: None. FINDINGS: Airway: The airway appears patent. Soft tissues: Prevertebral soft tissues are normal in thickness. There is mild epiglottal thickening. The aryepiglottic folds appear normal. No soft tissue gas. Bones: No suspicious bony lesions. Visualized cervical spine is normally aligned. IMPRESSION: Mild thickening of the epiglottis. No other radiographic abnormalities. Dictated by: Diana Langley M.D. on 07/30/2018 at 8:47 Approved by: Diana Langley M.D. on 07/30/2018 at 8:52
[2018-07-30 00:45] VITALS: BP 136/64; PULSE 92; RESP 18; O2SAT 98
[2018-07-30] MEDS: diphenhydrAMINE 50 MG/ML VIAL 25 MG IV (01:38)
[2018-07-30] MEDS: methylPREDNISolone 125 MG/2 ML VIAL IV (01:39)
[2018-07-30] MEDS: FAMOTIDINE 20 MG/50 ML PIGGYBACK 200 MG IV (01:45)
[2018-07-30 03:00] VITALS: BP 146/73; PULSE 73; RESP 18; O2SAT 96
[2018-07-30 03:23] VITALS: BP 167/76; PULSE 79; RESP 16
== END 2018-07-30 03:45 | disposition short-term general hospital (02) ==
PROVIDERS: Emergency Provider Emergency Medicine; Family Provider Family Medicine; PCP Family Medicine
DX: T78.3XXA Angioneurotic edema, initial encounter (principal)
CPT/HCPCS: 36415; 36430; 70360; 80053; 83690; 83735; 84100; 84484; 85025; 86850; 86900; 86901; 93005; 93041; 96365; 96375; 99284; 99285; P9016; J1200; J2930

== ENCOUNTER → 2018-08-13 10:05 | Outpatient (CLI) | payer MEDICARE, OTHER, SELFPAY ==
[2018-08-13 11:32] LABS: Add Manual Diff / Slide Review YES; Hemoglobin 11.3 g/dL (12.0-16.0); Mean Corpuscular HGB Conc 32.4 % (30-36); Mean Corpuscular Hemoglobin 32.5 PG (26-34); Mean Corpuscular Volume 100.4 fL (80-100); Platelet Count 193 X10^3/uL (150-400); Red Blood Cell Count 3.48 X10^6/uL (4.0-5.2); Red Cell Distribution Width 19.7 % (11.6-14.8); White Blood Cell Count 7.5 X10^3/uL (4.5-11.0)
[2018-08-13 11:37] LABS: Hypochromasia 1+; Macrocytosis 1+; Neutrophils Absolute Manual 2925 /uL (3000-5900); Total Cells Counted 100
== END ==
PROVIDERS: PCP Family Medicine
DX: D53.9 Nutritional anemia, unspecified (principal)
CPT/HCPCS: 36415; 85025

== ENCOUNTER → 2018-09-02 13:02 | Outpatient (CLI) | payer MEDICARE, OTHER, SELFPAY ==
--- NOTE | 2018-09-02 | DI.RAD.S_ITS ---
PROCEDURE: FL BARIUM SWALLOW INDICATIONS: Dysphagia, pharyngoesophageal phase COMPARISON: [facility], CR, XR CHEST 2VW, 07/04/2016, 16:31. [facility], CR, CHEST 2 VIEW, 01/17/2016, 13:28. [facility], CR, XR SOFT TISSUE NECK, 07/30/2018, 0:23. FINDINGS: Function: There is normal esophageal peristalsis. Moderate severe gastroesophageal reflux. There is normal transit of a calibrated barium tablet through the esophagus into the stomach. Morphology: Air-contrast images demonstrate normal mucosal morphology. Single contrast views show no esophageal strictures, extrinsic mass effects, or diverticula. There is a small sliding hiatal hernia. Limited images of the stomach demonstrate normal appearance. IMPRESSION: 1. Moderate severe gastroesophageal reflux. 2. Small sliding hiatal hernia. Dictated by: Telly Ray M.D. on 09/02/2018 at 14:46 Approved by: Telly Ray M.D. on 09/02/2018 at 14:48
== END ==
PROVIDERS: Family Provider Family Medicine; PCP Family Medicine; Visit Provider Physician Assistant
DX: R13.14 Dysphagia, pharyngoesophageal phase (principal); K21.9 Gastro-esophageal reflux disease without esophagitis; K44.9 Diaphragmatic hernia without obstruction or gangrene
CPT/HCPCS: 74220

== ENCOUNTER → 2018-11-19 10:41 | Outpatient (CLI) | payer MEDICARE, OTHER, SELFPAY ==
--- NOTE | 2018-11-19 | DI.MRI.S_ITS ---
PROCEDURE: MR SHOULDER RT WO CON INDICATIONS: Pain in right shoulder TECHNIQUE: Noncontrast oblique coronal T2 fast spin echo with fat saturation, oblique sagittal T1 spin echo and T2 fast spin echo with fat saturation, axial T1 spin echo and T2 fast spin echo with fat saturation through the shoulder. COMPARISON: None. FINDINGS: Image quality: Excellent. Rotator cuff: Massive full-thickness tear of the subscapularis, supraspinatus and infraspinatus tendons. Teres minor appears intact although there is tendinopathy. Severe atrophy of the subscapularis, supraspinatus and infraspinatus muscles. Bones and bursae: No bone marrow contusions or fractures. Severe acromioclavicular joint degeneration. The acromion demonstrates conventional anatomy, without an os acromiale. Glenohumeral joint degeneration. Large joint effusion Capsule and soft tissues: Labrum appears grossly intact with mild blunted appearance, probably age-appropriate. The long head of the biceps tendon is not well-seen and likely ruptured. The rotator interval appears normal, without fibrosis. The coracohumeral ligament not well visualized, presumably. IMPRESSION: Massive full-thickness tear the subscapularis, supraspinatus and infraspinatus tendons with associated severe muscle atrophy. AC and glenohumeral joint degeneration. Rupture of the long head biceps tendon. Large joint effusion Dictated by: Lopez Crystal M.D. on 11/19/2018 at 13:57 Approved by: Lopez Crystal M.D. on 11/19/2018 at 14:03
== END ==
PROVIDERS: PCP Family Medicine; Visit Provider Physical Medicine & Rehabilitation Pain Medicine
DX: M25.511 Pain in right shoulder (principal); M75.121 Complete rotator cuff tear or rupture of right shoulder, not specified as traumatic; M19.011 Primary osteoarthritis, right shoulder; S46.111A Strain of muscle, fascia and tendon of long head of biceps, right arm, initial encounter; M25.411 Effusion, right shoulder
CPT/HCPCS: 73221

== ENCOUNTER → 2019-12-29 13:52 | Outpatient (CLI) | payer MEDICARE, OTHER, SELFPAY ==
[2019-12-29 14:33] LABS: Alanine Aminotransferase 9 IU/L (<35); Albumin 3.6 g/dL (3.5-5.0); Albumin Globulin Ratio 0.9 (1.0-2.8); Alkaline Phosphatase 86 U/L (38-126); Aspartate Aminotransferase 24 IU/L (14-36); BUN Creatinine Ratio 16.1 (6-22); Bilirubin Total 0.5 mg/dL (0.2-1.3); Blood Urea Nitrogen 22 mg/dL (7-17); Calcium 8.7 mg/dL (8.4-10.2); Carbon Dioxide 26 mmol/L (22-32); Chloride 103 mmol/L (98-107); Estimated Glomerular Filt Rate 37.3 mL/min (>60); Globulin 4.1 g/dL (1.7-4.1); Glucose 110 mg/dL (80-110); HEMOLYSIS < 15 (0-50); Potassium 3.5 mmol/L (3.4-5.1); Sodium 134 mmol/L (137-145); Total Protein 7.7 g/dL (6.3-8.2)
[2019-12-29 14:35] LABS: Hematocrit 27.5 % (36-46); Hemoglobin 8.9 g/dL (12.0-16.0); Mean Corpuscular HGB Conc 32.4 % (30-36); Mean Corpuscular Hemoglobin 30.3 PG (26-34); Mean Corpuscular Volume 93.5 fL (80-100); Platelet Count 290 X10^3/uL (150-400); Red Blood Cell Count 2.94 X10^6/uL (4.0-5.2); White Blood Cell Count 9.3 X10^3/uL (4.5-11.0)
[2019-12-29 14:37] LABS: Add Manual Diff / Slide Review YES
[2019-12-29 15:03] LABS: Neutrophils Absolute Manual 5115 /uL (3000-5900); Nucleated Red Blood Cells 1 #/Diff; Total Cells Counted 100
[2019-12-29 15:04] LABS: Anisocytosis 1+
== END ==
PROVIDERS: PCP Family Medicine; Referring Provider Internal Medicine Hematology & Oncology; Visit Provider Internal Medicine Hematology & Oncology
DX: D53.9 Nutritional anemia, unspecified (principal); M06.9 Rheumatoid arthritis, unspecified
CPT/HCPCS: 36415; 80053; 85025

== ENCOUNTER → 2020-01-20 11:14 | Outpatient (CLI) | payer MEDICARE, OTHER, SELFPAY ==
[2020-01-20 11:34] LABS: Add Manual Diff / Slide Review NO; Basophils Absolute Auto 100 /uL (0-100); Basophils Percent Auto 0.9 % (0-2); Eosinophils Absolute Auto 200 /uL (0-450); Eosinophils Percent Auto 1.9 % (2-4); Hematocrit 28.6 % (36-46); Hemoglobin 9.3 g/dL (12.0-16.0); Lymphocytes Absolute Auto 2200 /uL (1100-4500); Mean Corpuscular HGB Conc 32.7 % (30-36); Mean Corpuscular Hemoglobin 31.4 PG (26-34); Monocytes Absolute Auto 1700 /uL (0-900); Monocytes Percent Auto 20.1 % (3-14); Neutrophils Absolute Auto 4500 /uL (1500-7000); Neutrophils Percent Auto 52.1 % (50-75); Platelet Count 209 X10^3/uL (150-400); Red Blood Cell Count 2.98 X10^6/uL (4.0-5.2); White Blood Cell Count 8.6 X10^3/uL (4.5-11.0)
[2020-01-20 12:10] LABS: Alanine Aminotransferase 25 IU/L (<35); Albumin 3.9 g/dL (3.5-5.0); Alkaline Phosphatase 79 U/L (38-126); Aspartate Aminotransferase 46 IU/L (14-36); BUN Creatinine Ratio 15.5 (6-22); Bilirubin Total 0.6 mg/dL (0.2-1.3); Blood Urea Nitrogen 25 mg/dL (7-17); Carbon Dioxide 28 mmol/L (22-32); Chloride 105 mmol/L (98-107); Glucose 102 mg/dL (80-110); HEMOLYSIS < 15 (0-50); Potassium 4.2 mmol/L (3.4-5.1); Sodium 136 mmol/L (137-145); Total Protein 7.9 g/dL (6.3-8.2)
== END ==
PROVIDERS: PCP Family Medicine; Referring Provider Internal Medicine Hematology & Oncology; Visit Provider Internal Medicine Hematology & Oncology
DX: D53.9 Nutritional anemia, unspecified (principal)
CPT/HCPCS: 36415; 80053; 85025

== ENCOUNTER → 2020-04-20 12:51 | Outpatient (CLI) | payer MEDICARE, OTHER, SELFPAY ==
[2020-04-20 13:07] LABS: Add Manual Diff / Slide Review NO; Basophils Absolute Auto 100 /uL (0-100); Basophils Percent Auto 1.3 % (0-2); Eosinophils Absolute Auto 200 /uL (0-450); Eosinophils Percent Auto 2.8 % (2-4); Hematocrit 34.2 % (36-46); Hemoglobin 11.2 g/dL (12.0-16.0); Lymphocytes Absolute Auto 2500 /uL (1100-4500); Lymphocytes Percent Auto 36.5 % (25-40); Mean Corpuscular HGB Conc 32.7 % (30-36); Mean Corpuscular Hemoglobin 30.9 PG (26-34); Mean Corpuscular Volume 94.4 fL (80-100); Monocytes Absolute Auto 1000 /uL (0-900); Monocytes Percent Auto 14.6 % (3-14); Neutrophils Absolute Auto 3100 /uL (1500-7000); Neutrophils Percent Auto 44.8 % (50-75); Platelet Count 182 X10^3/uL (150-400); Red Blood Cell Count 3.62 X10^6/uL (4.0-5.2); Red Cell Distribution Width 15.3 % (11.6-14.8); White Blood Cell Count 6.9 X10^3/uL (4.5-11.0)
[2020-04-20 13:19] LABS: Alanine Aminotransferase 13 IU/L (<35); Albumin 4.1 g/dL (3.5-5.0); Albumin Globulin Ratio 1.1 (1.0-2.8); Alkaline Phosphatase 71 U/L (38-126); Aspartate Aminotransferase 29 IU/L (14-36); BUN Creatinine Ratio 23.5 (6-22); Bilirubin Total 0.4 mg/dL (0.2-1.3); Blood Urea Nitrogen 47 mg/dL (7-17); Calcium 9.6 mg/dL (8.4-10.2); Carbon Dioxide 26 mmol/L (22-32); Chloride 107 mmol/L (98-107); Estimated Glomerular Filt Rate 24.1 mL/min (>60); Globulin 3.9 g/dL (1.7-4.1); Glucose 105 mg/dL (80-110); HEMOLYSIS < 15 (0-50); Potassium 4.7 mmol/L (3.4-5.1); Sodium 140 mmol/L (137-145)
[2020-04-20 13:26] LABS: HEMOLYSIS < 15 (0-50); Iron 100 ug/dL (37-170)
[2020-04-20 13:37] LABS: Percent Iron Saturation 31 % (15-50); Total Iron Binding Capacity 327 ug/dL (265-497); Transferrin 226 mg/dL (206-381)
[2020-04-20 13:53] LABS: Ferritin 134 ng/mL (11-264)
== END ==
PROVIDERS: PCP Family Medicine; Referring Provider Internal Medicine Hematology & Oncology; Visit Provider Internal Medicine Hematology & Oncology
DX: D53.9 Nutritional anemia, unspecified (principal)
CPT/HCPCS: 36415; 80053; 82728; 83540; 83550; 85025

== ENCOUNTER → 2020-07-29 13:19 | Outpatient (CLI) | payer MEDICARE, OTHER, SELFPAY ==
[2020-07-29 13:38] LABS: Add Manual Diff / Slide Review NO; Basophils Absolute Auto 100 /uL (0-100); Basophils Percent Auto 1.3 % (0-2); Eosinophils Absolute Auto 500 /uL (0-450); Eosinophils Percent Auto 6.8 % (2-4); Hematocrit 30.8 % (36-46); Hemoglobin 9.9 g/dL (12.0-16.0); Lymphocytes Absolute Auto 1900 /uL (1100-4500); Mean Corpuscular HGB Conc 32.3 % (30-36); Mean Corpuscular Volume 96.1 fL (80-100); Monocytes Absolute Auto 1400 /uL (0-900); Monocytes Percent Auto 18.6 % (3-14); Neutrophils Absolute Auto 3500 /uL (1500-7000); Neutrophils Percent Auto 47.3 % (50-75); Platelet Count 220 X10^3/uL (150-400); Red Cell Distribution Width 15.5 % (11.6-14.8); White Blood Cell Count 7.5 X10^3/uL (4.5-11.0)
[2020-07-29 13:45] LABS: Alanine Aminotransferase 11 IU/L (<35); Albumin 3.9 g/dL (3.5-5.0); Alkaline Phosphatase 66 U/L (38-126); Aspartate Aminotransferase 26 IU/L (14-36); BUN Creatinine Ratio 16.4 (6-22); Bilirubin Total 0.5 mg/dL (0.2-1.3); Blood Urea Nitrogen 30 mg/dL (7-17); Calcium 9.1 mg/dL (8.4-10.2); Carbon Dioxide 23 mmol/L (22-32); Chloride 109 mmol/L (98-107); Estimated Glomerular Filt Rate 26.7 mL/min (>60); Globulin 3.9 g/dL (1.7-4.1); Glucose 104 mg/dL (80-110); HEMOLYSIS < 15 (0-50); Potassium 4.3 mmol/L (3.4-5.1); Sodium 138 mmol/L (137-145); Total Protein 7.8 g/dL (6.3-8.2)
== END ==
PROVIDERS: Internal Medicine Hematology & Oncology; PCP Family Medicine; Referring Provider Family Medicine; Visit Provider Family Medicine
DX: R23.8 Other skin changes; D64.9 Anemia, unspecified
CPT/HCPCS: 36415; 80053; 85025

== ENCOUNTER → 2021-01-31 14:00 | Outpatient (CLI) | payer MEDICARE, OTHER, SELFPAY ==
[2021-01-31 14:48] LABS: Add Manual Diff / Slide Review NO; Basophils Absolute Auto 100 /uL (0-100); Basophils Percent Auto 1.5 % (0-2); Eosinophils Absolute Auto 300 /uL (0-450); Eosinophils Percent Auto 4.8 % (2-4); Hematocrit 31.9 % (36-46); Hemoglobin 10.4 g/dL (12.0-16.0); Lymphocytes Absolute Auto 1800 /uL (1100-4500); Lymphocytes Percent Auto 32.4 % (25-40); Mean Corpuscular HGB Conc 32.5 % (30-36); Mean Corpuscular Hemoglobin 30.6 PG (26-34); Monocytes Absolute Auto 1100 /uL (0-900); Monocytes Percent Auto 20.2 % (3-14); Neutrophils Absolute Auto 2300 /uL (1500-7000); Neutrophils Percent Auto 41.1 % (50-75); Platelet Count 200 X10^3/uL (150-400); Red Blood Cell Count 3.39 X10^6/uL (4.0-5.2); Red Cell Distribution Width 15.7 % (11.6-14.8); White Blood Cell Count 5.5 X10^3/uL (4.5-11.0)
[2021-01-31 15:19] LABS: HEMOLYSIS < 15 (0-50); Iron 72 ug/dL (37-170)
[2021-01-31 15:20] LABS: Alanine Aminotransferase 13 IU/L (<35); Albumin 4.1 g/dL (3.5-5.0); Albumin Globulin Ratio 1.1 (1.0-2.8); Alkaline Phosphatase 61 U/L (38-126); Aspartate Aminotransferase 27 IU/L (14-36); BUN Creatinine Ratio 19.2 (6-22); Bilirubin Total 0.5 mg/dL (0.2-1.3); Blood Urea Nitrogen 37 mg/dL (7-17); Calcium 9.4 mg/dL (8.4-10.2); Carbon Dioxide 25 mmol/L (22-32); Chloride 111 mmol/L (98-107); Globulin 3.8 g/dL (1.7-4.1); Glucose 104 mg/dL (80-110); HEMOLYSIS < 15 (0-50); Potassium 4.3 mmol/L (3.4-5.1); Sodium 141 mmol/L (137-145); Total Protein 7.9 g/dL (6.3-8.2)
[2021-01-31 15:29] LABS: Percent Iron Saturation 24 % (15-50); Total Iron Binding Capacity 295 ug/dL (265-497); Transferrin 207 mg/dL (206-381)
[2021-01-31 15:57] LABS: Ferritin 85 ng/mL (11-264)
== END ==
PROVIDERS: PCP Family Medicine; Referring Provider Internal Medicine Hematology & Oncology; Visit Provider Internal Medicine Hematology & Oncology
DX: N18.9 Chronic kidney disease, unspecified (principal)
CPT/HCPCS: 36415; 80053; 82728; 83540; 83550; 85025

== ENCOUNTER 2021-04-02 14:52 | Emergency (ER) | payer MEDICARE, OTHER, SELFPAY ==
[2021-04-02 14:59] VITALS: BP 142/65; PULSE 91; RESP 20; TEMP 37.4; O2SAT 99
--- NOTE | 2021-04-02 15:09 | DI.RAD.S_ITS ---
PROCEDURE: XR CHEST 2V INDICATIONS: covid+ soa/fatigue TECHNIQUE: 2 views of the chest were acquired. COMPARISON: [facility], CR, XR CHEST 2V, 07/10/2018, 17:03. FINDINGS: Surgical changes and devices: None. Lungs and pleura: Suspected subtle bilateral patchy airspace opacities. No pleural effusions or pneumothorax. Mediastinum: Mediastinal contours are normal. Heart size is normal. Mild aortic atherosclerotic calcifications. Bones and chest wall: No suspicious bony abnormalities. Soft tissues appear unremarkable. Degenerative changes are seen in the shoulders. IMPRESSION: Subtle mild bilateral airspace opacities are suspicious for pneumonia, including with viral agents such as COVID-19. Dictated by: Robin Serrano M.D. on 04/02/2021 at 15:28 Approved by: Robin Serrano M.D. on 04/02/2021 at 15:29
--- NOTE | 2021-04-02 15:40 | ED.SOB ---
HPI - SOB/Dyspnea <Margarita Elmore, [facility] - Last Filed: 04/02/21 20:01> General Chief Complaint: Shortness of Breath/Dyspnea Stated Complaint: weak /sob/hx covid Time Seen by Provider: 04/02/21 15:33 Source: patient and family Mode of arrival: Ambulatory History of Present Illness HPI Narrative: 80-year-old female presents to the emergency department with her for COVID related symptoms of shortness of breath and dyspnea. Patient tested positive for COVID on 03/24/2019 to and her symptoms started on 03/20/2021. She has a past medical history of anemia due to chronic disease, rheumatoid arthritis, orthostatic hypertension, appendectomy, hysterectomy, is on Plavix daily. She denies any new complication but endorses fatigue, generalized weakness, shortness of breath with mild exertion, she denies edema or chest pain, still has a cough, and has had mild fever occasionally. Patient has been taking Tylenol at home with mild relief of her symptoms. Related Data Home Medications Medication Instructions Recorded Confirmed conjugated estrogens 0.625 mg 0.625 mg PO Q2W 07/10/18 08/01/20 tablet cyclobenzaprine 10 mg tablet 10 - 20 mg PO BEDTIME 07/10/18 08/01/20 diphenhydramine HCl 25 mg tablet 25 mg PO BEDTIME 07/10/18 08/01/20 (Benadryl Allergy) folic acid 1 mg tablet 1 mg PO DAILY 07/10/18 08/01/20 gabapentin 100 mg capsule 100 mg PO TID 07/10/18 08/01/20 leflunomide 20 mg tablet 20 mg PO DAILY 07/10/18 08/01/20 lovastatin 10 mg tablet 20 mg PO DAILY 07/10/18 08/01/20 tramadol 50 mg tablet 50 mg PO TID 07/10/18 08/01/20 amlodipine 5 mg tablet (Norvasc) 5 mg PO DAILY 07/30/19 08/01/20 Xanax 0.5 mg PRN PRN 04/28/20 08/01/20 clopidogrel 75 mg tablet 75 mg DAILY 04/28/20 08/01/20 fexofenadine 180 mg tablet 180 mg PO DAILY 04/28/20 08/01/20 rabeprazole 20 mg tablet,delayed 20 mg PO DAILY 04/28/20 08/01/20 release (AcipHex) losartan 25 mg tablet 25 mg PO DAILY 08/01/20 08/01/20 Previous Rx's Medication Instructions Recorded epinephrine 0.3 mg/0.3 mL 0.3 mg (0.3 mL) IM X1 #1 pac 02/29/16 injection, auto-injector Allergies Allergy/AdvReac Type Severity Reaction Status Date / Time ciprofloxacin [CIPROFLOXACIN] Allergy Unknown Verified 04/06/21 17:44 doxycycline [DOXYCYCLINE] Allergy Unknown Verified 04/06/21 17:44 erythromycin base Allergy Unknown Verified 04/06/21 17:44 [ERYTHROMYCIN BASE] hydrocodone [From VICODIN] Allergy Unknown Verified 04/06/21 17:44 penicillin V [From PEN-VEE K] Allergy Unknown Verified 04/06/21 17:44 Review of Systems <CARRIE Gentile - Last Filed: 04/02/21 20:01> Review of Systems Narrative: General: Endorses occasional fever, endorses fatigue, malaise, feeling exhausted Head/Neck: denies headache, neck pain, dizziness Eyes: denies visual changes, eye pain Cardio: denies chest pain, palpitations, edema Respiratory: denies dyspnea, orthopnea, endorses shortness of breath with exertion, cough and congestion GI: denies abdominal pain, nausea, vomiting, or diarrhea : denies dysuria, hematuria, urinary retention, frequency or incontinence MSK: denies joint pain, muscle weakness Skin: denies rash, itching, skin lesions or other Neuro: denies numbness, tingling Patient History <CARRIE Gentile - Last Filed: 04/02/21 20:01> Medical History (Updated 04/06/21 @ 22:48 by Susan Laws DO) Acute dehydration Anemia Macrocytic anemia Orthostatic hypotension Rheumatoid arthritis Surgical History History of cataract removal with insertion of prosthetic lens Status post appendectomy Status post hemorrhoidectomy Status post hysterectomy Family History Brother Cancer Diabetes mellitus Heart disease Hypertension Hyperlipidemia Brother Cancer Diabetes mellitus Heart disease Hypertension Hyperlipidemia Sister Age: 92 Heart disease Hypertension Hyperlipidemia Social History Smoking Status: Never smoker Smoking Status: Never smoker alcohol intake frequency: holidays/special occasions only Substance Use Type: does not use Exam <CARRIE Gentile - Last Filed: 04/02/21 20:01> Narrative Exam Narrative: Independently reviewed vitals signs and nursing notes. General: Cooperative, comfortable, in no acute distress, well developed and well groomed, patient appears fatigued, no respiratory distress Head/Neck: Normal visual inspection and supple, atraumatic, no JVD or lymphadenopathy. Normal facial exam Eyes: Pupils equal round and reactive, EOMI, conjunctiva normal, no scleral icterus or injections Nose: External nose normal, nares patent, no rhinorrhea, without purulent drainage Mouth/Throat: uvula midline, moist mucus membranes Cardio: Regular rate and rhythm, no peripheral edema, warm extremities Respiratory: Normal respiratory effort, able to speak in complete sentences without audible wheezing, stridor, or rales. No retractions. Breath sounds are clear throughout all gomes GI: Abdomen soft, nontender to palpation x4 quadrants, nondistended, no masses or exquisite tenderness with exam, no flank tenderness MSK: Moves all extremities, neurovascularly intact Skin: Normal capillary refill, no rash Neuro: Normal speech and cognition, normal gait, A&O x3, tone normal, moves all extremities Psych: Mental status is grossly normal, speech is clear, congruent mood, normal affect Initial Vital Signs Initial Vital Signs: Vital Signs Temperature 99.3 F 04/02/21 14:59 Pulse Rate 91 H 04/02/21 14:59 Respiratory Rate 04/02/21 14:59 Blood Pressure 142/65 H 04/02/21 14:59 Pulse Oximetry 99 04/02/21 14:59 <Cat Duran DO - Last Filed: 04/08/21 08:16> Initial Vital Signs Initial Vital Signs: Vital Signs Temperature 99.3 F 04/02/21 14:59 Pulse Rate 91 H 04/02/21 14:59 Respiratory Rate 04/02/21 14:59 Blood Pressure 142/65 H 04/02/21 14:59 Pulse Oximetry 99 04/02/21 14:59 Course <CARRIE Gentile - Last Filed: 04/02/21 20:01> Orders Ordered: Discontinued Medications Acetaminophen (Acetaminophen 325 Mg Tablet) 650 mg PO NOW ONE Stop: 04/02/21 16:22 Last Admin: 04/02/21 16:54 Dose: 650 mg Documented by: GWEN Vital Signs Vital signs: Vital Signs - 8 hr 04/02/21 14:59 04/02/21 17:35 Temperature 99.3 F Pulse Rate 91 H 90 Respiratory Rate 20 18 Blood Pressure 142/65 H Pulse Oximetry 99 96 <Cat Duran DO - Last Filed: 04/08/21 08:16> Orders Ordered: Discontinued Medications Acetaminophen (Acetaminophen 325 Mg Tablet) 650 mg PO NOW ONE Stop: 04/02/21 16:22 Last Admin: 04/02/21 16:54 Dose: 650 mg Documented by: GWEN Vital Signs Vital signs: Vital Signs - 8 hr 04/02/21 14:59 04/02/21 17:35 Temperature 99.3 F Pulse Rate 91 H 90 Respiratory Rate 20 18 Blood Pressure 142/65 H Pulse Oximetry 99 96 MDM - SOB/Dyspnea <CARRIE Gentile - Last Filed: 04/02/21 20:01> Lab Data Result diagrams: 04/02/21 16:10 04/02/21 16:10 Labs: Lab Results 04/02/21 04/02/21 04/02/21 Range/Units 16:05 16:10 16:10 WBC 6.6 (4.5-11.0) X10^3/uL RBC 2.84 L (4.0-5.2) X10^6/uL Hgb 8.7 L (12.0-16.0) g/dL Hct 26.6 L (36-46) % MCV 93.7 (80-100) fL MCH 30.8 (26-34) PG MCHC 32.9 (30-36) % RDW 16.2 H (11.6-14.8) % Plt Count 167 (150-400) X10^3/uL Neut % (Auto) Not Reportable Lymph % (Auto) Not Reportable Arthur % (Auto) Not Reportable Eos % (Auto) Not Reportable Baso % (Auto) Not Reportable Lymph # (Auto) Not Reportable Arthur # (Auto) Not Reportable Baso # (Auto) Not Reportable Total Counted 100 Seg Neutrophils % 51.0 (38-70) % Lymphocytes % (Manual) 29.0 (25-45) % Monocytes % (Manual) 17.0 H (2-11) % Eosinophils % (Manual) 1.0 L (2-4) % Basophils % (Manual) 2.0 H (0-1) % Neutrophils # (Manual) 3366 (0265-7565) /uL RBC Morphology Normal morphology Sodium 133 L (137-145) mmol/L Potassium 4.0 (3.4-5.1) mmol/L Chloride 108 H (98-107) mmol/L Carbon Dioxide 21 L (22-32) mmol/L BUN 35 H (7-17) mg/dL Creatinine 2.14 H (0.52-1.04) mg/dL Estimated GFR 22.2 L (>60) mL/min BUN/Creatinine Ratio 16.4 (6-22) Glucose 101 (80-110) mg/dL Calcium 8.4 (8.4-10.2) mg/dL Total Bilirubin 0.6 (0.2-1.3) mg/dL AST 34 (14-36) IU/L ALT 15 (<35) IU/L Alkaline Phosphatase 56 (38-126) U/L Total Protein 7.3 (6.3-8.2) g/dL Albumin 3.5 (3.5-5.0) g/dL Globulin 3.8 (1.7-4.1) g/dL Albumin/Globulin Ratio 0.9 L (1.0-2.8) SARS-CoV-2 (PCR) Positive H (Negative) Imaging Data Chest x-ray: Radiologist's Impression: PROCEDURE:? XR CHEST 2V ? INDICATIONS:? covid+ soa/fatigue ? TECHNIQUE:? 2 views of the chest were acquired.? ? COMPARISON:? [facility], CR, XR CHEST 2V, 07/10/2018, 17:03. ? FINDINGS:? ? Surgical changes and devices:? None.? ? Lungs and pleura:? Suspected subtle bilateral patchy airspace opacities.? No pleural effusions or pneumothorax.? ? Mediastinum:? Mediastinal contours are normal.? Heart size is normal.? Mild aortic atherosclerotic calcifications. ? Bones and chest wall:? No suspicious bony abnormalities.? Soft tissues appear unremarkable.? Degenerative changes are seen in the shoulders. ? IMPRESSION:? Subtle mild bilateral airspace opacities are suspicious for pneumonia, including with viral agents such as COVID-19. ? ? Dictated by: Robin Serrano M.D. on 04/02/2021 at 15:28 ? ? Approved by: Robin Serrano M.D. on 04/02/2021 at 15:29 ? [facility] Narrative Medical decision making narrative: 80-year-old female with macrocytic anemia and chronic kidney disease with a baseline creatinine of 1.9-2.0, rheumatoid arthritis, and orthostatic hypertension who presents to the emergency department with her after testing positive for COVID on 03/24/2021, she states her symptoms started 03/20/2019 to and today she tested positive for COVID night as well. Patient has had shortness of breath with exertion, she has been taking Tessalon Perles which have been helpful for her cough, she endorses an occasional fever, feeling fatigued and orthostatic at times. Patient has chronic kidney disease with associated anemia. On chart review her baseline hemoglobin is between 8.5-11 and her baseline hematocrit is between 26 and 30. Today hemoglobin 8.7, hematocrit 26.6. 2.1 for above her baseline of 1.8-2.0, mild hyponatremia 133, and COVID PCR was positive. Patient is nontoxic appearing, she appears fatigued and has a cough that is nonproductive. Patient has clear breath sounds, x-ray shows mild bilateral airspace opacities which are suspicious for COVID pneumonia with her positive diagnosis. Patient has had normal vital signs today, she was given Tylenol for her pain, she is on Plavix daily, encouraged p.o. hydration, ongoing quarantine, returning for any new worsening symptoms. Patient has not had any syncope, falls, inability to ambulate or unsteady gait. Encouraged close follow-up with her primary care provider since this has been a long course of COVID for mallet early female. Today she does not appear in distress, and she is staying hydrated, patient was given strict return precautions. Patient is appropriate and amenable to discharge home. Vital signs are stable on repeat examination is unremarkable. Patient has been informed of results. Patient has been given strict return to ER precautions for any new or worsening symptoms. Patient understands to follow up closely with outpatient providers as instructed. Patient understands plan and agrees to discharge home. All questions and concerns answered at this time. <Cat Duran, DO - Last Filed: 04/08/21 08:16> Lab Data Labs: Lab Results 04/02/21 04/02/21 04/02/21 Range/Units 16:05 16:10 16:10 WBC 6.6 (4.5-11.0) X10^3/uL RBC 2.84 L (4.0-5.2) X10^6/uL Hgb 8.7 L (12.0-16.0) g/dL Hct 26.6 L (36-46) % MCV 93.7 (80-100) fL MCH 30.8 (26-34) PG MCHC 32.9 (30-36) % RDW 16.2 H (11.6-14.8) % Plt Count 167 (150-400) X10^3/uL Neut % (Auto) Not Reportable Lymph % (Auto) Not Reportable Arthur % (Auto) Not Reportable Eos % (Auto) Not Reportable Baso % (Auto) Not Reportable Lymph # (Auto) Not Reportable Arthur # (Auto) Not Reportable Baso # (Auto) Not Reportable Total Counted 100 Seg Neutrophils % 51.0 (38-70) % Lymphocytes % (Manual) 29.0 (25-45) % Monocytes % (Manual) 17.0 H (2-11) % Eosinophils % (Manual) 1.0 L (2-4) % Basophils % (Manual) 2.0 H (0-1) % Neutrophils # (Manual) 3366 (0159-2529) /uL RBC Morphology Normal morphology Sodium 133 L (137-145) mmol/L Potassium 4.0 (3.4-5.1) mmol/L Chloride 108 H (98-107) mmol/L Carbon Dioxide 21 L (22-32) mmol/L BUN 35 H (7-17) mg/dL Creatinine 2.14 H (0.52-1.04) mg/dL Estimated GFR 22.2 L (>60) mL/min BUN/Creatinine Ratio 16.4 (6-22) Glucose 101 (80-110) mg/dL Calcium 8.4 (8.4-10.2) mg/dL Total Bilirubin 0.6 (0.2-1.3) mg/dL AST 34 (14-36) IU/L ALT 15 (<35) IU/L Alkaline Phosphatase 56 (38-126) U/L Total Protein 7.3 (6.3-8.2) g/dL Albumin 3.5 (3.5-5.0) g/dL Globulin 3.8 (1.7-4.1) g/dL Albumin/Globulin Ratio 0.9 L (1.0-2.8) SARS-CoV-2 (PCR) Positive H (Negative) Discharge Plan Departure Patient Disposition: Home Clinical Impression: COVID-19 Anemia due to chronic kidney disease Qualifiers: Chronic kidney disease stage: unspecified stage Qualified Code(s): N18.9 - Chronic kidney disease, unspecified Instructions: DI for Cough -- Adult, DI for COVID-19 (Suspected or Confirmed ), Coronavirus Disease 2019 Activity Restrictions/Additional Instructions: *You have been diagnosed with a positive COVID-19 test, COVID pneumonia, anemia but it is stable compared with your prior lab results, and fatigue. The sorry that you have been sick for this long. Please try to stay hydrated by drinking plenty of fluids, eating food at least twice a day, and resting as much as possible. Please change positions slowly to allow for your orthostatic hypertension to resolve before standing up. If your shortness of breath is worsening, if you are unable to care for yourself, or UR wheezing and having noisy breathing, please return to the emergency department for possible admission and breathing support. Everything on your lab work appears stable and safe at this time. If you start having blood in your bowel movements or in your urine, or your too weak to get out of bed, it may be time for another evaluation. Please schedule an appointment with Dr. Freeman for follow-up. Thank you for trusting us with your care, your doing the best IV can taking care of yourself, sorry that it is been this long for you. *What to do: *Please continue to take your regular medications as directed. [ ] New medication prescriptions sent to your pharmacy: [ ] [ ] New medication written as a paper prescription [ x] No new medications given *Please follow up with your primary care provider in 2-3 days, call for an appointment. Let them know you were seen in the Emergency Department and that we ask that you be seen in follow up. We will electronically transmit a record of today's note if your PCP is in our system *If you do not have a primary care provider please contact the [facility] Resource line at [phone]. They will ask some questions about your medical history and help get you set up with a doctor in the community. *Return to Emergency Department if you should have any new, worsening or concerning symptoms, such as [fever greater than 101F, chills, worsening pain, persistent vomiting or other bothersome symptoms] Prescriptions: No Action epinephrine 0.3 MG/0.3 ML auto-injector 0.3 mg IM X1 Qty: 1 1RF leflunomide [Arava] 20 mg tablet 20 mg PO DAILY 0RF cyclobenzaprine 10 mg tablet 10 - 20 mg PO BEDTIME 0RF lovastatin 10 mg tablet 20 mg PO DAILY 0RF tramadol 50 mg tablet 50 mg PO TID 0RF Premarin 0.625 mg tablet 0.625 mg PO Q2W 0RF gabapentin 100 mg capsule 100 mg PO TID 0RF diphenhydramine HCl [Benadryl Allergy] 25 MG tablet 25 mg PO BEDTIME 0RF folic acid 1 MG tablet 1 mg PO DAILY 0RF amlodipine [Norvasc] 5 mg Tablet 5 mg PO DAILY 0RF rabeprazole [AcipHex] 20 mg Tablet,Delayed Release (Dr/Ec) 20 mg PO DAILY 0RF clopidogrel 75 mg Tablet 75 mg DAILY 0RF fexofenadine 180 mg Tablet 180 mg PO DAILY 0RF Xanax 0.5 mg PRN PRN (Reason: Anxiety) 0RF losartan 25 mg Tablet 25 mg PO DAILY 0RF Referrals: Arthur Freeman DO [Primary Care Provider] - <Cat Duran DO - Last Filed: 04/08/21 08:16> Cosign ED Attending Thi Attestation: I was immediately available in the department for consultation. Documentation has been reviewed.
[2021-04-02 16:28] LABS: COVID19 -Nasal RAPID POSITIVE (Negative)
[2021-04-02 16:35] LABS: Hematocrit 26.6 % (36-46); Hemoglobin 8.7 g/dL (12.0-16.0); Mean Corpuscular HGB Conc 32.9 % (30-36); Mean Corpuscular Hemoglobin 30.8 PG (26-34); Mean Corpuscular Volume 93.7 fL (80-100); Platelet Count 167 X10^3/uL (150-400); Red Blood Cell Count 2.84 X10^6/uL (4.0-5.2); Red Cell Distribution Width 16.2 % (11.6-14.8); White Blood Cell Count 6.6 X10^3/uL (4.5-11.0)
[2021-04-02 16:36] LABS: Add Manual Diff / Slide Review YES
[2021-04-02 16:39] LABS: Alanine Aminotransferase 15 IU/L (<35); Albumin 3.5 g/dL (3.5-5.0); Albumin Globulin Ratio 0.9 (1.0-2.8); Alkaline Phosphatase 56 U/L (38-126); Aspartate Aminotransferase 34 IU/L (14-36); BUN Creatinine Ratio 16.4 (6-22); Bilirubin Total 0.6 mg/dL (0.2-1.3); Blood Urea Nitrogen 35 mg/dL (7-17); Calcium 8.4 mg/dL (8.4-10.2); Carbon Dioxide 21 mmol/L (22-32); Chloride 108 mmol/L (98-107); Estimated Glomerular Filt Rate 22.2 mL/min (>60); Globulin 3.8 g/dL (1.7-4.1); Glucose 101 mg/dL (80-110); HEMOLYSIS < 15 (0-50); Sodium 133 mmol/L (137-145); Total Protein 7.3 g/dL (6.3-8.2)
[2021-04-02 16:48] LABS: Neutrophils Absolute Manual 3366 /uL (3000-5900); Total Cells Counted 100
[2021-04-02 16:51] LABS: RBC Morphology Normal Morphology
[2021-04-02] MEDS: ACETAMINOPHEN 325 MG TABLET 650 MG PO (16:54)
[2021-04-02 17:35] VITALS: PULSE 90; RESP 18; O2SAT 96
== END 2021-04-02 17:35 | disposition home or self-care (01) ==
PROVIDERS: Emergency Provider Nurse Practitioner Critical Care Medicine; PCP Family Medicine
DX: U07.1 COVID-19 (principal); N18.9 Chronic kidney disease, unspecified
CPT/HCPCS: 36415; 71046; 80053; 85007; 85025; 87635; 99283; 99284; C9803

== ENCOUNTER 2021-04-06 17:29 | Emergency (ER) | payer MEDICARE, OTHER, SELFPAY ==
[2021-04-06] VITALS (18 sets, daily range): BP systolic 125–163; BP diastolic 58–103; PULSE 88–105; RESP 16–44; TEMP 36.5; O2SAT 95–99; BMI 21.0
--- NOTE | 2021-04-06 17:48 | DI.RAD.S_ITS ---
PROCEDURE: XR CHEST 2V INDICATIONS: shortness of breath TECHNIQUE: 2 views of the chest were acquired. COMPARISON: [facility], , XR CHEST 2V, 04/02/2021, 15:06. FINDINGS: Surgical changes and devices: None. Lungs and pleura: Lungs are clear. No pleural effusions or pneumothorax. Mediastinum: Mediastinal contours are normal. Heart size is normal. Atherosclerotic vascular calcification noted in the aortic arch. Bones and chest wall: No suspicious bony abnormalities. Soft tissues appear unremarkable. IMPRESSION: No acute cardiopulmonary findings Approved by: Randy Vicente M.D. on 04/06/2021 at 17:50
--- NOTE | 2021-04-06 19:20 | ED_ITS ---
HPI - SOB/Dyspnea General Chief Complaint: Shortness of Breath/Dyspnea Stated Complaint: WEAK /DIZZY/SOB SENT BY [facility] Time Seen by Provider: 04/06/21 19:13 Source: patient Mode of arrival: Ambulatory History of Present Illness HPI Narrative: Patient is a 80-year-old female who has a history of rheumatoid arthritis, anemia of chronic disease COVID infection diagnosed on 03/24/2021, symptoms started on 03/20/2021 is presenting today with generalized weakness. She says every time she stands up she gets dizzy and lightheaded she has not passed out. She is short of breath with exertion. This has been ongoing for couple of weeks she is just tired of it. She and her were seen and evaluated here 5 days ago for something similar. Her anemia was found to be stable at that time. She denies any black stool or bright red blood per rectum she has no nausea or vomiting. Denies any fever or chills. She just generally does not feel. No other complaints. Related Data Home Medications Medication Instructions Recorded Confirmed conjugated estrogens 0.625 mg 0.625 mg PO Q2W 07/10/18 08/01/20 tablet cyclobenzaprine 10 mg tablet 10 - 20 mg PO BEDTIME 07/10/18 08/01/20 diphenhydramine HCl 25 mg tablet 25 mg PO BEDTIME 07/10/18 08/01/20 (Benadryl Allergy) folic acid 1 mg tablet 1 mg PO DAILY 07/10/18 08/01/20 gabapentin 100 mg capsule 100 mg PO TID 07/10/18 08/01/20 leflunomide 20 mg tablet 20 mg PO DAILY 07/10/18 08/01/20 lovastatin 10 mg tablet 20 mg PO DAILY 07/10/18 08/01/20 tramadol 50 mg tablet 50 mg PO TID 07/10/18 08/01/20 amlodipine 5 mg tablet (Norvasc) 5 mg PO DAILY 07/30/19 08/01/20 Xanax 0.5 mg PRN PRN 04/28/20 08/01/20 clopidogrel 75 mg tablet 75 mg DAILY 04/28/20 08/01/20 fexofenadine 180 mg tablet 180 mg PO DAILY 04/28/20 08/01/20 rabeprazole 20 mg tablet,delayed 20 mg PO DAILY 04/28/20 08/01/20 release (AcipHex) losartan 25 mg tablet 25 mg PO DAILY 08/01/20 08/01/20 Previous Rx's Medication Instructions Recorded epinephrine 0.3 mg/0.3 mL 0.3 mg (0.3 mL) IM X1 #1 pac 02/29/16 injection, auto-injector Allergies Allergy/AdvReac Type Severity Reaction Status Date / Time ciprofloxacin [CIPROFLOXACIN] Allergy Unknown Verified 04/06/21 17:44 doxycycline [DOXYCYCLINE] Allergy Unknown Verified 04/06/21 17:44 erythromycin base Allergy Unknown Verified 04/06/21 17:44 [ERYTHROMYCIN BASE] hydrocodone [From VICODIN] Allergy Unknown Verified 04/06/21 17:44 penicillin V [From PEN-VEE K] Allergy Unknown Verified 04/06/21 17:44 Review of Systems Review of Systems Narrative: GENERAL: Denies chills, fatigue, malaise, fever, sweats, travel HEENT: Denies sinus pain, ear pain, sore throat, difficulty swallowing, neck pain RESPIRATORY: See HPI CARDIOVASCULAR: Denies chest pain, palpitations, orthopnea, edema GASTROINTESTINAL: Denies nausea, vomiting, abdominal pain, diarrhea, constipation, melena. : Denies dysuria, frequency, incontinence, hematuria, urinary retention, flank pain. MUSCULOSKELETAL: Denies weakness, joint pain, or bony pain SKIN: No rash, no erythema, no pruritus NEUROLOGIC: Denies weakness, dizziness, headache, numbness, change in speech, confusion PSYCHIATRIC: No concerning psychosocial issues. 12 point review of systems is negative except for those stated above and HPI Patient History Medical History (Updated 04/06/21 @ 22:48 by Susan Laws DO) Acute dehydration Anemia Macrocytic anemia Orthostatic hypotension Rheumatoid arthritis Surgical History History of cataract removal with insertion of prosthetic lens Status post appendectomy Status post hemorrhoidectomy Status post hysterectomy Family History Brother Cancer Diabetes mellitus Heart disease Hypertension Hyperlipidemia Brother Cancer Diabetes mellitus Heart disease Hypertension Hyperlipidemia Sister Age: 92 Heart disease Hypertension Hyperlipidemia Social History Smoking Status: Never smoker Smoking Status: Never smoker alcohol intake frequency: holidays/special occasions only Substance Use Type: does not use Exam Initial Vital Signs Initial Vital Signs: Vital Signs Temperature 97.7 F 04/06/21 17:41 Pulse Rate 100 H 04/06/21 17:41 Respiratory Rate 17 04/06/21 17:41 Blood Pressure 152/103 H 04/06/21 17:41 Pulse Oximetry 99 04/06/21 17:41 GENERAL: Alert 80-year-old femaleand in [no acute] distress. HEENT: Head atraumatic,EOMI, pupils reactive, face symmetric, [moist] mucous membranes CARDIOVASCULAR: Regular rate and rhythm without murmurs, rubs or gallops. RESPIRATORY: Breath sounds equal bilaterally, no wheezes rales or rhonchi. ABDOMEN: Soft, nontender. Normoactive bowel sounds all 4 quadrants. No guarding or rebound. EXTREMITIES: Normal range of motion, no clubbing or edema. Neurovascularly intact NEUROLOGICAL: Alert and oriented x4.Normal gait and speech. Drafter Geological strength equal bilaterally SKIN: Warm, dry, no laceration, no petechiae, no rashes or lesions. Course Orders Ordered: Discontinued Medications Sodium Chloride (Normal Saline 0.9%) 1,000 mls @ 1,000 mls/hr IV BOLUS ONE Stop: 04/06/21 21:30 Last Admin: 04/06/21 20:54 Dose: 1,000 mls/hr Documented by: KORI Vital Signs Vital signs: Vital Signs - 8 hr 04/06/21 20:30 04/06/21 20:36 04/06/21 20:38 Pulse Rate 92 H 92 H 98 H Pulse Rate [Orthostatic Lying] Pulse Rate [Orthostatic Sitting] Pulse Rate [Orthostatic Standing] Respiratory Rate 32 H 29 H 27 H Blood Pressure 143/68 H 139/68 128/58 L Blood Pressure [Orthostatic Lying] Blood Pressure [Orthostatic Sitting] Blood Pressure [Orthostatic Standing] Pulse Oximetry 97 98 95 04/06/21 20:39 04/06/21 20:41 04/06/21 21:00 Pulse Rate 100 H 100 H Pulse Rate [Orthostatic Lying] 92 H Pulse Rate [Orthostatic Sitting] 97 H Pulse Rate [Orthostatic Standing] 99 H Respiratory Rate 35 H 43 H Blood Pressure 125/61 Blood Pressure [Orthostatic Lying] 139/68 Blood Pressure [Orthostatic Sitting] 128/58 L Blood Pressure [Orthostatic Standing] 125/61 Pulse Oximetry 97 98 04/06/21 21:30 04/06/21 22:00 04/06/21 22:30 Pulse Rate 100 H 105 H 99 H Pulse Rate [Orthostatic Lying] Pulse Rate [Orthostatic Sitting] Pulse Rate [Orthostatic Standing] Respiratory Rate 30 H 24 44 H Blood Pressure 135/81 Blood Pressure [Orthostatic Lying] Blood Pressure [Orthostatic Sitting] Blood Pressure [Orthostatic Standing] Pulse Oximetry 96 98 98 MDM - SOB/Dyspnea Lab Data Result diagrams: 04/06/21 19:12 04/06/21 19:12 Labs: Lab Results 04/06/21 04/06/21 04/06/21 Range/Units 19:12 19:12 19:12 WBC 7.6 (4.5-11.0) X10^3/uL RBC 3.07 L (4.0-5.2) X10^6/uL Hgb 9.4 L (12.0-16.0) g/dL Hct 28.2 L (36-46) % MCV 91.9 (80-100) fL MCH 30.7 (26-34) PG MCHC 33.4 (30-36) % RDW 16.1 H (11.6-14.8) % Plt Count 256 (150-400) X10^3/uL Neut % (Auto) 51.5 (50-75) % Lymph % (Auto) 23.1 L (25-40) % [place] % (Auto) 22.2 H (3-14) % Eos % (Auto) 1.7 L (2-4) % Baso % (Auto) 1.5 (0-2) % Neut # (Auto) 3900 (9877-2071) /uL Lymph # (Auto) 1700 (6589-9177) /uL [place] # (Auto) 1700 H (0-900) /uL Eos # (Auto) 100 (0-450) /uL Baso # (Auto) 100 (0-100) /uL PT 12.0 (10.1-12.7) SECONDS INR 1.1 (0.9-1.3) D-Dimer (<230) ng/mL Sodium 135 L (137-145) mmol/L Potassium 3.7 (3.4-5.1) mmol/L Chloride 110 H (98-107) mmol/L Carbon Dioxide 22 (22-32) mmol/L BUN 31 H (7-17) mg/dL Creatinine 2.08 H (0.52-1.04) mg/dL Estimated GFR 23.0 L (>60) mL/min BUN/Creatinine Ratio 14.9 (6-22) Glucose 102 (80-110) mg/dL Lactate (0.7-2.1) mmol/L Calcium 8.5 (8.4-10.2) mg/dL Total Bilirubin 0.6 (0.2-1.3) mg/dL AST 28 (14-36) IU/L ALT 12 (<35) IU/L Alkaline Phosphatase 64 (38-126) U/L Total Creatine Kinase (30-135) U/L CK-MB (CK-2) CK-MB (CK-2) Rel Index Troponin I (0.01-0.034) ng/mL NT-Pro-B Natriuret Pep 181 (<450) pg/mL Total Protein 7.2 (6.3-8.2) g/dL Albumin 3.4 L (3.5-5.0) g/dL Globulin 3.8 (1.7-4.1) g/dL Albumin/Globulin Ratio 0.9 L (1.0-2.8) 04/06/21 04/06/21 04/06/21 Range/Units 19:12 19:12 19:12 WBC (4.5-11.0) X10^3/uL RBC (4.0-5.2) X10^6/uL Hgb (12.0-16.0) g/dL Hct (36-46) % MCV (80-100) fL MCH (26-34) PG MCHC (30-36) % RDW (11.6-14.8) % Plt Count (150-400) X10^3/uL Neut % (Auto) (50-75) % Lymph % (Auto) (25-40) % [place] % (Auto) (3-14) % Eos % (Auto) (2-4) % Baso % (Auto) (0-2) % Neut # (Auto) (5836-9523) /uL Lymph # (Auto) (8877-3096) /uL [place] # (Auto) (0-900) /uL Eos # (Auto) (0-450) /uL Baso # (Auto) (0-100) /uL PT (10.1-12.7) SECONDS INR (0.9-1.3) D-Dimer 345 H (<230) ng/mL Sodium (137-145) mmol/L Potassium (3.4-5.1) mmol/L Chloride (98-107) mmol/L Carbon Dioxide (22-32) mmol/L BUN (7-17) mg/dL Creatinine (0.52-1.04) mg/dL Estimated GFR (>60) mL/min BUN/Creatinine Ratio (6-22) Glucose (80-110) mg/dL Lactate 1.1 (0.7-2.1) mmol/L Calcium (8.4-10.2) mg/dL Total Bilirubin (0.2-1.3) mg/dL AST (14-36) IU/L ALT (<35) IU/L Alkaline Phosphatase (38-126) U/L Total Creatine Kinase 80 (30-135) U/L CK-MB (CK-2) TNP CK-MB (CK-2) Rel Index TNP Troponin I < 0.012 (0.01-0.034) ng/mL NT-Pro-B Natriuret Pep (<450) pg/mL Total Protein (6.3-8.2) g/dL Albumin (3.5-5.0) g/dL Globulin (1.7-4.1) g/dL Albumin/Globulin Ratio (1.0-2.8) Imaging Data Chest x-ray: Radiologist's Impression: PROCEDURE:? XR CHEST 2V ? INDICATIONS:? shortness of breath ? TECHNIQUE:? 2 views of the chest were acquired.? ? COMPARISON:? [facility], CR, XR CHEST 2V, 04/02/2021, 15:06. ? FINDINGS:? ? Surgical changes and devices:? None.? ? Lungs and pleura:? Lungs are clear.? No pleural effusions or pneumothorax.? ? Mediastinum:? Mediastinal contours are normal.? Heart size is normal.? Atherosclerotic vascular calcification noted in the aortic arch. ? Bones and chest wall:? No suspicious bony abnormalities.? Soft tissues appear unremarkable.? ? IMPRESSION:? No acute cardiopulmonary findings ? ? ? Approved by: Randy Vicente M.D. on 04/06/2021 at 17:50? ECG Data Interpretation: Normal sinus rhythm rate 88 OR interval [address] changes some tall T- waves noted in lead V2 and lead V3 MDM Narrative Medical decision making narrative: The patient is neurologically in tact she has negative orthostatics actually and blood work overall appears improved with an improving creatinine an improving hemoglobin. She has had ongoing weakness dizziness shortness or breath for number of weeks. Shortness of breath is likely due to recent COVID infection. BNP is negative. D-dimer minimally elevated, but with age correction is unlikely. Due to creatinine is and GFR CT for pulmonary embolism was not done. apparently has extremely hard blood pressure to control. She is on multiple blood pressure medications. Some of these medications and polypharmacy may be contributing to her lightheadedness upon standing. At this time I recommend that she follow up with primary care provider and Cardiology. She says that she has a primary care provider appointment in 4 days. No further workup needed in the emergency department. Discharge Plan Departure Patient Disposition: Home Clinical Impression: Chronic orthostatic hypotension Instructions: Orthostatic Hypotension Activity Restrictions/Additional Instructions: *You have been diagnosed with orthostatic hypotension *What to do: At this time blood work is actually reassuring even slight improvement. I do think some of your symptoms may be due to medication. Please talk with your primary care provider and or senior front end engineer about what medication you may be able to stop taking *Continue to take medications as directed *Follow up with your primary care provider in 2-3 days or call [phone] *Return to ER if you should have increasing falls, chest pain, confusion shortness of breath or any new, worsening or concerning symptoms Prescriptions: No Action epinephrine 0.3 MG/0.3 ML auto-injector 0.3 mg IM X1 Qty: 1 1RF leflunomide [Arava] 20 mg tablet 20 mg PO DAILY 0RF cyclobenzaprine 10 mg tablet 10 - 20 mg PO BEDTIME 0RF lovastatin 10 mg tablet 20 mg PO DAILY 0RF tramadol 50 mg tablet 50 mg PO TID 0RF Premarin 0.625 mg tablet 0.625 mg PO Q2W 0RF gabapentin 100 mg capsule 100 mg PO TID 0RF diphenhydramine HCl [Benadryl Allergy] 25 MG tablet 25 mg PO BEDTIME 0RF folic acid 1 MG tablet 1 mg PO DAILY 0RF amlodipine [Norvasc] 5 mg Tablet 5 mg PO DAILY 0RF rabeprazole [AcipHex] 20 mg Tablet,Delayed Release (Dr/Ec) 20 mg PO DAILY 0RF clopidogrel 75 mg Tablet 75 mg DAILY 0RF fexofenadine 180 mg Tablet 180 mg PO DAILY 0RF Xanax 0.5 mg PRN PRN (Reason: Anxiety) 0RF losartan 25 mg Tablet 25 mg PO DAILY 0RF Referrals: Arthur Freeman DO [Primary Care Provider] -
[2021-04-06 19:34] LABS: INR 1.1 (0.9-1.3)
[2021-04-06 19:45] LABS: Creatine Kinase 80 U/L (30-135); Lactate (Lactic Acid) 1.1 mmol/L (0.7-2.1)
[2021-04-06 19:57] LABS: Troponin I < 0.012 ng/mL (0.01-0.034)
[2021-04-06 20:19] LABS: Alanine Aminotransferase 12 IU/L (<35); Albumin 3.4 g/dL (3.5-5.0); Albumin Globulin Ratio 0.9 (1.0-2.8); Alkaline Phosphatase 64 U/L (38-126); Aspartate Aminotransferase 28 IU/L (14-36); BUN Creatinine Ratio 14.9 (6-22); Bilirubin Total 0.6 mg/dL (0.2-1.3); Blood Urea Nitrogen 31 mg/dL (7-17); Calcium 8.5 mg/dL (8.4-10.2); Carbon Dioxide 22 mmol/L (22-32); Chloride 110 mmol/L (98-107); Globulin 3.8 g/dL (1.7-4.1); Glucose 102 mg/dL (80-110); HEMOLYSIS < 15 (0-50); Potassium 3.7 mmol/L (3.4-5.1); Sodium 135 mmol/L (137-145); Total Protein 7.2 g/dL (6.3-8.2)
[2021-04-06 20:21] LABS: Add Manual Diff / Slide Review NO; Basophils Absolute Auto 100 /uL (0-100); Basophils Percent Auto 1.5 % (0-2); Eosinophils Absolute Auto 100 /uL (0-450); Eosinophils Percent Auto 1.7 % (2-4); Hematocrit 28.2 % (36-46); Hemoglobin 9.4 g/dL (12.0-16.0); Lymphocytes Absolute Auto 1700 /uL (1100-4500); Lymphocytes Percent Auto 23.1 % (25-40); Mean Corpuscular HGB Conc 33.4 % (30-36); Mean Corpuscular Hemoglobin 30.7 PG (26-34); Mean Corpuscular Volume 91.9 fL (80-100); Monocytes Absolute Auto 1700 /uL (0-900); Monocytes Percent Auto 22.2 % (3-14); Neutrophils Absolute Auto 3900 /uL (1500-7000); Neutrophils Percent Auto 51.5 % (50-75); Platelet Count 256 X10^3/uL (150-400); Red Blood Cell Count 3.07 X10^6/uL (4.0-5.2); Red Cell Distribution Width 16.1 % (11.6-14.8); White Blood Cell Count 7.6 X10^3/uL (4.5-11.0)
[2021-04-06 20:28] LABS: NT-proBNP (BNP-Adult 18+) 181 pg/mL (<450)
[2021-04-06] MEDS: SODIUM CHLORIDE 0.9% 1,000 ML 1000 ML IV (20:54)
[2021-04-06 22:11] LABS: D Dimer 345 ng/mL (<230)
== END 2021-04-06 23:02 | disposition home or self-care (01) ==
PROVIDERS: Emergency Medicine; Emergency Provider Emergency Medicine; PCP Family Medicine
DX: I95.1 Orthostatic hypotension (principal); Z86.16 Personal history of COVID-19
CPT/HCPCS: 36415; 71046; 80053; 82550; 83605; 83880; 84484; 85025; 85379; 85610; 93005; 99284

== ENCOUNTER 2022-04-21 15:29 | Emergency (ER) | payer MEDICARE, OTHER, SELFPAY ==
[2022-04-21] VITALS (10 sets, daily range): BP systolic 158–224; BP diastolic 68–93; PULSE 66–99; RESP 17–32; TEMP 37; O2SAT 97–99; BMI 21.7
--- NOTE | 2022-04-21 15:39 | DI.RAD.S_ITS ---
PROCEDURE: XR CHEST 1V INDICATIONS: chest pain TECHNIQUE: One view of the chest was acquired. COMPARISON: [facility], CR, XR CHEST 2V, 04/06/2021, 17:39. FINDINGS: Surgical changes and devices: None. Lungs and pleura: Lungs are clear. No pleural effusions or pneumothorax. Mediastinum: Mediastinal contours appear normal. Heart size is normal. Bones and chest wall: The right shoulder appears abnormal with an apparent superior displacement, this could be due to the cauda cranial angulation of this study with underlying degenerative changes however. IMPRESSION: 1. No acute cardiopulmonary abnormality. 2. Abnormal appearance of the right shoulder, probably due to the caudal cranial projection of this study. If there is pain of the right shoulder recommend right shoulder x-ray. Dictated by: Pete Guevara M.D. on 04/21/2022 at 16:08 Approved by: Pete Guevara M.D. on 04/21/2022 at 16:11
[2022-04-21 15:50] LABS: INR 0.9 (0.9-1.3); Prothrombin Time 10.4 SECONDS (10.1-12.7)
[2022-04-21 15:53] LABS: PTT Partial Thromboplastin Tim 29 SECONDS (26-36)
[2022-04-21 15:55] LABS: Alanine Aminotransferase 17 IU/L (<35); Albumin 3.7 g/dL (3.5-5.0); Alkaline Phosphatase 72 U/L (38-126); Aspartate Aminotransferase 23 IU/L (14-36); BUN Creatinine Ratio 16.7 (6-22); Bilirubin Total 0.5 mg/dL (0.2-1.3); Blood Urea Nitrogen 30 mg/dL (7-17); Calcium 8.5 mg/dL (8.4-10.2); Carbon Dioxide 21 mmol/L (22-32); Chloride 106 mmol/L (98-107); Creatine Kinase 66 U/L (30-135); Estimated Glomerular Filt Rate 28 mL/min (>60); Globulin 3.7 g/dL (1.7-4.1); Glucose 124 mg/dL (80-110); HEMOLYSIS < 15 (0-50); Lipase 49 U/L (23-300); Magnesium 2.1 mg/dL (1.6-2.3); Potassium 3.8 mmol/L (3.4-5.1); Sodium 136 mmol/L (137-145); Total Protein 7.4 g/dL (6.3-8.2)
[2022-04-21 15:59] LABS: Add Manual Diff / Slide Review NO; Basophils Absolute Auto 100 /uL (0-100); Basophils Percent Auto 0.9 % (0-2); Eosinophils Absolute Auto 100 /uL (0-450); Eosinophils Percent Auto 1.5 % (2-4); Hematocrit 31.5 % (36-46); Hemoglobin 10.5 g/dL (12.0-16.0); Lymphocytes Absolute Auto 2600 /uL (1100-4500); Lymphocytes Percent Auto 36.5 % (25-40); Mean Corpuscular HGB Conc 33.3 % (30-36); Mean Corpuscular Volume 96.2 fL (80-100); Monocytes Absolute Auto 1000 /uL (0-900); Monocytes Percent Auto 13.5 % (3-14); Neutrophils Absolute Auto 3400 /uL (1500-7000); Neutrophils Percent Auto 47.6 % (50-75); Platelet Count 218 X10^3/uL (150-400); Red Blood Cell Count 3.27 X10^6/uL (4.0-5.2); Red Cell Distribution Width 15.7 % (11.6-14.8); White Blood Cell Count 7.2 X10^3/uL (4.5-11.0)
[2022-04-21 16:06] LABS: Troponin I < 0.012 ng/mL (0.01-0.034)
--- NOTE | 2022-04-21 16:23 | ED_ITS ---
HPI - Chest Pain General Chief Complaint: Chest Pain Stated Complaint: Chest pain, resolved Time Seen by Provider: 04/21/22 15:49 Source: patient and EMS Mode of arrival: EMS Limitations: no limitations History of Present Illness HPI narrative: Patient is a 81-year-old female. Had a cardiac catheterization 2 years ago without any stent placement. Is on Plavix. States that 3 days ago she started to have chest discomfort also back discomfort. It lasted most of the day. She threw up that evening did not change any of her symptoms. She thinks it is somewhat worse with movement. She thought it was her gastritis. She went to bed the night with a discomfort and woke up the next morning without any pain. Several times on the next day she had the same symptoms but it was not as persistent. It came and went. This morning she woke up without any discomfort. Is a day went on the pain returned. She currently is asymptomatic. She states that her discomfort this morning is not the same as her prior gastritis. She is taking all of her medications as directed. Related Data Home Medications Medication Instructions Recorded Confirmed conjugated estrogens 0.625 mg 0.625 mg PO Q2W 07/10/18 08/01/20 tablet cyclobenzaprine 10 mg tablet 10 - 20 mg PO BEDTIME 07/10/18 08/01/20 diphenhydramine HCl 25 mg tablet 25 mg PO BEDTIME 07/10/18 08/01/20 (Benadryl Allergy) folic acid 1 mg tablet 1 mg PO DAILY 07/10/18 08/01/20 gabapentin 100 mg capsule 100 mg PO TID 07/10/18 08/01/20 leflunomide 20 mg tablet 20 mg PO DAILY 07/10/18 08/01/20 lovastatin 10 mg tablet 20 mg PO DAILY 07/10/18 08/01/20 tramadol 50 mg tablet 50 mg PO TID 07/10/18 08/01/20 amlodipine 5 mg tablet (Norvasc) 5 mg PO DAILY 07/30/19 08/01/20 Xanax 0.5 mg PRN PRN Anxiety 04/28/20 08/01/20 clopidogrel 75 mg tablet 75 mg DAILY 04/28/20 08/01/20 fexofenadine 180 mg tablet 180 mg PO DAILY 04/28/20 08/01/20 rabeprazole 20 mg tablet,delayed 20 mg PO DAILY 04/28/20 08/01/20 release (AcipHex) losartan 25 mg tablet 25 mg PO DAILY 08/01/20 08/01/20 Previous Rx's Medication Instructions Recorded epinephrine 0.3 mg/0.3 mL 0.3 mg (0.3 mL) IM X1 ##1 02/29/16 injection, auto-injector Allergies Allergy/AdvReac Type Severity Reaction Status Date / Time ciprofloxacin [CIPROFLOXACIN] Allergy Unknown Verified 04/21/22 15:34 doxycycline [DOXYCYCLINE] Allergy Unknown Verified 04/21/22 15:34 erythromycin base Allergy Unknown Verified 04/21/22 15:34 [ERYTHROMYCIN BASE] hydrocodone [From VICODIN] Allergy Unknown Verified 04/21/22 15:34 penicillin V [From PEN-VEE K] Allergy Unknown Verified 04/21/22 15:34 Review of Systems Constitutional Constitutional: Reports system reviewed and no additional complaints, except as documented Cardiovascular Cardiovascular: Reports system reviewed and no additional complaints, except as documented Respiratory Respiratory: Reports system reviewed and no additional complaints, except as documented Gastrointestinal Gastrointestinal: Reports system reviewed and no additional complaints, except as documented Musculoskeletal Musculoskeletal: Reports system reviewed and no additional complaints, except as documented Integumentary/Breasts Skin/Breast: Reports system reviewed and no additional complaints, except as documented Neurologic Neurologic: Reports system reviewed and no additional complaints, except as documented Hematologic/Lymphatic On Anticoagulants: No Patient History Medical History (Updated 04/21/22 @ 17:56 by Isidro Benítez DO) Acute dehydration Anemia Macrocytic anemia Orthostatic hypotension Rheumatoid arthritis Surgical History History of cataract removal with insertion of prosthetic lens Status post appendectomy Status post hemorrhoidectomy Status post hysterectomy Family History Brother Cancer Diabetes mellitus Heart disease Hypertension Hyperlipidemia Brother Cancer Diabetes mellitus Heart disease Hypertension Hyperlipidemia Sister Age: 93 Heart disease Hypertension Hyperlipidemia Social History Smoking Status: Never smoker Smoking Status: Never smoker alcohol intake frequency: holidays/special occasions only Substance Use Type: marijuana Exam Initial Vital Signs Initial Vital Signs: Vital Signs Temperature 98.6 F 04/21/22 15:34 Pulse Rate 75 04/21/22 15:34 Respiratory Rate 18 04/21/22 15:34 Blood Pressure 224/87 H 04/21/22 15:34 Pulse Oximetry 97 04/21/22 15:34 Oxygen Delivery Method Room Air 04/21/22 15:34 Const General: cooperative, comfortable and No ill appearing HENMT Head: normal to inspection and normocephalic Resp Effort & Inspection: normal respiratory effort Auscultation: clear to auscultation bilaterally Cardio Rate: regular rate Rhythm: regular rhythm Skin General: no rashes or lesions noted Neuro General: patient alert, patient awake, patient oriented x3 and moves all extremities Extrem General: No edema Scores HEART Score Heart Score history: Slightly Suspicious Heart Score EKG: Normal Heart Score Age: > or = 65 years old Heart Score risk factors: 1-2 risk factors Heart Score troponin: < or = to normal limit Heart Score Total: 3 Course Orders Ordered: ED Orders 04/21/22 15:37 Complete Blood Count AUTO DIFF Stat Comprehensive Metabolic Panel Stat Lipase Stat Magnesium Stat PTT Partial Thromboplastin David Stat Prothrombin Time INR Stat Troponin & CK Cardiac Panel Stat 04/21/22 15:39 XR chest 1V Stat COVID19 -Nasal RAPID Stat EKG-12 Lead Stat 04/21/22 16:55 Troponin & CK Cardiac Panel Stat Vital Signs Vital signs: Vital Signs - 8 hr 04/21/22 15:34 04/21/22 15:38 04/21/22 16:00 Temperature 98.6 F Pulse Rate 75 72 75 Respiratory Rate 18 17 30 H Blood Pressure 224/87 H Pulse Oximetry 97 98 98 Oxygen Delivery Method Room Air Room Air Room Air 04/21/22 16:26 04/21/22 16:27 04/21/22 16:27 Temperature Pulse Rate 71 66 Respiratory Rate 18 32 H Blood Pressure 164/70 H 164/70 H Pulse Oximetry 97 99 Oxygen Delivery Method Room Air 04/21/22 16:30 04/21/22 16:30 04/21/22 17:04 Temperature Pulse Rate 69 99 H Respiratory Rate 26 H Blood Pressure 179/74 H Pulse Oximetry 98 Oxygen Delivery Method Room Air 04/21/22 17:09 04/21/22 17:09 04/21/22 17:30 Temperature Pulse Rate 75 75 Respiratory Rate 23 24 Blood Pressure 205/93 H Pulse Oximetry 99 97 Oxygen Delivery Method Room Air 04/21/22 17:31 04/21/22 17:31 Temperature Pulse Rate 75 Respiratory Rate 28 H Blood Pressure 158/68 H Pulse Oximetry 99 Oxygen Delivery Method MDM - Chest Pain Lab Data Attestation: I reviewed the patient's lab results. 04/21/22 15:37 04/21/22 15:37 Labs: Lab Results 04/21/22 04/21/22 04/21/22 Range/Units 15:37 15:37 15:37 WBC 7.2 (4.5-11.0) X10^3/uL RBC 3.27 L (4.0-5.2) X10^6/uL Hgb 10.5 L (12.0-16.0) g/dL Hct 31.5 L (36-46) % MCV 96.2 (80-100) fL MCH 32.0 (26-34) PG MCHC 33.3 (30-36) % RDW 15.7 H (11.6-14.8) % Plt Count 218 (150-400) X10^3/uL Neut % (Auto) 47.6 L (50-75) % Lymph % (Auto) 36.5 (25-40) % [place] % (Auto) 13.5 (3-14) % Eos % (Auto) 1.5 L (2-4) % Baso % (Auto) 0.9 (0-2) % Neut # (Auto) 3400 (0574-3794) /uL Lymph # (Auto) 2600 (6142-9170) /uL [place] # (Auto) 1000 H (0-900) /uL Eos # (Auto) 100 (0-450) /uL Baso # (Auto) 100 (0-100) /uL PT 10.4 (10.1-12.7) SECONDS INR 0.9 (0.9-1.3) APTT 29 (26-36) SECONDS Sodium 136 L (137-145) mmol/L Potassium 3.8 (3.4-5.1) mmol/L Chloride 106 (98-107) mmol/L Carbon Dioxide 21 L (22-32) mmol/L BUN 30 H (7-17) mg/dL Creatinine 1.80 H (0.52-1.04) mg/dL Estimated GFR 28 L (>60) mL/min BUN/Creatinine Ratio 16.7 (6-22) Glucose 124 H (80-110) mg/dL Calcium 8.5 (8.4-10.2) mg/dL Magnesium 2.1 (1.6-2.3) mg/dL Total Bilirubin 0.5 (0.2-1.3) mg/dL AST 23 (14-36) IU/L ALT 17 (<35) IU/L Alkaline Phosphatase 72 (38-126) U/L Total Creatine Kinase 66 (30-135) U/L CK-MB (CK-2) TNP CK-MB (CK-2) Rel Index TNP Troponin I < 0.012 (0.01-0.034) ng/mL Total Protein 7.4 (6.3-8.2) g/dL Albumin 3.7 (3.5-5.0) g/dL Globulin 3.7 (1.7-4.1) g/dL Albumin/Globulin Ratio 1.0 (1.0-2.8) Lipase 49 (23-300) U/L 04/21/22 Range/Units 16:55 WBC (4.5-11.0) X10^3/uL RBC (4.0-5.2) X10^6/uL Hgb (12.0-16.0) g/dL Hct (36-46) % MCV (80-100) fL MCH (26-34) PG MCHC (30-36) % RDW (11.6-14.8) % Plt Count (150-400) X10^3/uL Neut % (Auto) (50-75) % Lymph % (Auto) (25-40) % [place] % (Auto) (3-14) % Eos % (Auto) (2-4) % Baso % (Auto) (0-2) % Neut # (Auto) (5016-4521) /uL Lymph # (Auto) (3056-1831) /uL [place] # (Auto) (0-900) /uL Eos # (Auto) (0-450) /uL Baso # (Auto) (0-100) /uL PT (10.1-12.7) SECONDS INR (0.9-1.3) APTT (26-36) SECONDS Sodium (137-145) mmol/L Potassium (3.4-5.1) mmol/L Chloride (98-107) mmol/L Carbon Dioxide (22-32) mmol/L BUN (7-17) mg/dL Creatinine (0.52-1.04) mg/dL Estimated GFR (>60) mL/min BUN/Creatinine Ratio (6-22) Glucose (80-110) mg/dL Calcium (8.4-10.2) mg/dL Magnesium (1.6-2.3) mg/dL Total Bilirubin (0.2-1.3) mg/dL AST (14-36) IU/L ALT (<35) IU/L Alkaline Phosphatase (38-126) U/L Total Creatine Kinase 60 (30-135) U/L CK-MB (CK-2) TNP CK-MB (CK-2) Rel Index TNP Troponin I < 0.012 (0.01-0.034) ng/mL Total Protein (6.3-8.2) g/dL Albumin (3.5-5.0) g/dL Globulin (1.7-4.1) g/dL Albumin/Globulin Ratio (1.0-2.8) Lipase (23-300) U/L Imaging Data Chest x-ray: Radiologist's Impression: PROCEDURE:? XR CHEST 1V ? INDICATIONS:? chest pain ? TECHNIQUE:? One view of the chest was acquired.? ? COMPARISON:? [facility], , XR CHEST 2V, 04/06/2021, 17:39. ? FINDINGS:? ? Surgical changes and devices:? None.? ? Lungs and pleura:? Lungs are clear.? No pleural effusions or pneumothorax.? ? Mediastinum:? Mediastinal contours appear normal.? Heart size is normal.? ? Bones and chest wall:? The right shoulder appears abnormal with an apparent superior displacement, this could be due to the cauda cranial angulation of this study with underlying degenerative changes however. ? IMPRESSION:? 1. No acute cardiopulmonary abnormality. 2. Abnormal appearance of the right shoulder, probably due to the caudal cranial projection of this study.? If there is pain of the right shoulder recommend right shoulder x-ray. ECG Data Attestation: I personally reviewed and interpreted this ECG as follows: Interpretation: Sinus rhythm Ventricular rate is 68 Normal axis Normal QRS Normal QTC When PVC No ST T wave changes MDM Narrative Medical decision making narrative: Patient does have a low risk heart score. She did have a stress test 2 years ago that she states was normal and there was no stents placed. Her EKGs unremarkable. Had a discussion with her regarding options to include admission to the hospital for further risk stratification however the patient opted to be discharged home she is currently completely asymptomatic. I do have some suspicion for ACS given her age and presentation however she will contact her primary doctor for further evaluation. Discharge Plan Departure Patient Disposition: Home Clinical Impression: Chest pain Instructions: DI for Chest Pain Activity Restrictions/Additional Instructions: Recommend that you continue to take all of your medications as directed. I do recommend that you contact your primary doctor for a follow-up to discuss further testing to include a stress test. Return to the emergency department for any new or worsening symptoms. Prescriptions: No Action epinephrine 0.3 MG/0.3 ML auto-injector 0.3 mg IM X1 Qty: 1 1RF leflunomide [Arava] 20 mg tablet 20 mg PO DAILY cyclobenzaprine 10 mg tablet 10 - 20 mg PO BEDTIME lovastatin 10 mg tablet 20 mg PO DAILY tramadol 50 mg tablet 50 mg PO TID Premarin 0.625 mg tablet 0.625 mg PO Q2W gabapentin 100 mg capsule 100 mg PO TID diphenhydramine HCl [Benadryl Allergy] 25 MG tablet 25 mg PO BEDTIME folic acid 1 MG tablet 1 mg PO DAILY amlodipine [Norvasc] 5 mg Tablet 5 mg PO DAILY rabeprazole [AcipHex] 20 mg Tablet,Delayed Release (Dr/Ec) 20 mg PO DAILY clopidogrel 75 mg Tablet 75 mg DAILY fexofenadine 180 mg Tablet 180 mg PO DAILY Xanax 0.5 mg PRN PRN (Reason: Anxiety) losartan 25 mg Tablet 25 mg PO DAILY Referrals: Mckenzie Gomez, [employer] [Primary Care Provider] - Stand Alone Forms: Patient Portal/API
[2022-04-21 17:30] LABS: Creatine Kinase 60 U/L (30-135)
[2022-04-21 17:43] LABS: Troponin I < 0.012 ng/mL (0.01-0.034)
== END 2022-04-21 18:08 | disposition home or self-care (01) ==
PROVIDERS: Emergency Provider Emergency Medicine; PCP Nurse Practitioner Family
DX: R07.9 Chest pain, unspecified (principal); Z95.5 Presence of coronary angioplasty implant and graft; Z79.01 Long term (current) use of anticoagulants; Z79.899 Other long term (current) drug therapy
CPT/HCPCS: 36415; 71045; 80053; 82550; 83690; 83735; 84484; 85025; 85610; 85730; 93005; 93010; 99283; 99284

== ENCOUNTER 2022-04-26 14:25 | Emergency (ER) | payer MEDICARE, OTHER, SELFPAY ==
[2022-04-26 14:30] VITALS: BP 144/64; PULSE 76; RESP 18; TEMP 37.1; O2SAT 99; BMI 21.9
--- NOTE | 2022-04-26 14:36 | DI.RAD.S_ITS ---
PROCEDURE: XR SHOULDER LT MIN 2V INDICATIONS: Pt's fell on her, now c/o left shoulder pain. TECHNIQUE: 3 views of the shoulder were acquired. COMPARISON: [facility], CR, XR SHOULDER 2+ VIEWS LEFT, 08/30/2021, 12:00. [facility], CR, XR SHOULDER 2+ VIEWS LEFT, 09/15/2021, 13:10. 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 No displaced fracture or dislocation identified Soft tissues: No suspicious calcifications. IMPRESSION: No acute radiographic abnormality. 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 If there is high concern for occult injury, consider repeat radiography or CT. Dictated by: Heath Ku M.D. on 04/26/2022 at 15:41 Approved by: Heath Ku M.D. on 04/26/2022 at 15:42
--- NOTE | 2022-04-26 14:59 | PC.NURSE ---
pt was helping fix his closet when he fell off the step stool, pt tried to catch him but fell backwards. she states she landed on her left side hitting her hip, shoulder, elbow, low back and head. no Loc, does take thinners (plavix). states she has some bruises from this fall on her hip and upper arm. pt endorses that pain starts in her left armpit and radiates to her chest and back. pain is intermittent. pt states she has used ice and heat on her hip but not her shoulder. pain was manageable until a couple days ago when it suddenly got much worse, she took tramadol (which she is allergic too) and benadryl and that seemed to help the pain until today when it came back worse than before. pt is scheduled to have surgery on her low back May 23. history of surgery on left shoulder last year in the summer time, unsure of exact month
--- NOTE | 2022-04-26 16:31 | DI.RAD.S_ITS ---
PROCEDURE: XR RIBS LT MIN 3V W CXR1V INDICATIONS: fall/injury TECHNIQUE: 2 views of the left ribs were acquired, along with a single view chest. COMPARISON: None. FINDINGS: Surgical changes and devices: Partially seen left shoulder reverse arthroplasty. Bones and chest wall: No displaced fracture is identified. Possible loose ossified body the axillary pouch of the right shoulder. Lungs and pleura: No pleural effusions or pneumothorax. Lungs appear clear. Mediastinum: Mediastinal contours appear normal. Heart size is normal. IMPRESSION: No acute radiographic abnormality. Consider CT for further evaluation if necessary. Dictated by: Heath Ku M.D. on 04/26/2022 at 17:03 Approved by: Heath Ku M.D. on 04/26/2022 at 17:04
--- NOTE | 2022-04-26 16:31 | DI.RAD.S_ITS ---
PROCEDURE: XR HIP W PEL IF DONE RT 2V INDICATIONS: fall/injury TECHNIQUE: 2 views of the hip were acquired. COMPARISON: [facility], CR, XR HIP 2 VIEWS BILATERAL, 01/31/2022, 12:23. [facility], [facility], HIPBILAT 3TO4V W PEL IF PERFD, 04/03/2016, 14:22. FINDINGS: Bones: No displaced fracture or dislocation. Femoral acetabular alignment is maintained. Calcific tendinopathy at the greater trochanter. Soft tissues: There are pelvic phleboliths. Lumbosacral degenerative changes. IMPRESSION: No acute radiographic abnormality. If there is high concern for occult injury, consider repeat radiography or cross-sectional imaging. Dictated by: Heath Ku M.D. on 04/26/2022 at 16:56 Approved by: Heath Ku M.D. on 04/26/2022 at 16:59
--- NOTE | 2022-04-26 16:32 | ED.FALL ---
HPI - Fall General Chief Complaint: Extremity Injury, Upper Stated Complaint: chest & back hurt T-7 Time Seen by Provider: 04/26/22 16:31 Source: patient and family Mode of arrival: Wheelchair History of Present Illness HPI Narrative: Patient here with . Complains of left upper rib pain as well as right hip pain. Patient has chronic right hip pain this is not new. Patient states a week and a half ago her was falling out of the closet and she tried catching him and they both fell to the floor with him landing on top of her left chest. Has been doing well. Her left shoulder has had had surgery. However at this time no complaints of left shoulder pain. It is left upper rib pain. It radiates from the posterior upper ribs underneath her armpits and to the sternum. She was supposed to Have surgery on it last year. However she forgot to stop her Plavix. Right hip pain has been worse since her fall. She has been walking. No trouble talking or breathing. No difficulties with moving her left shoulder. Denies denies any loss of consciousness. No neck pain. Her head did strike her face but she states no pain from that. Denies any back pain Related Data Home Medications Medication Instructions Recorded Confirmed conjugated estrogens 0.625 mg 0.625 mg PO Q2W 07/10/18 08/01/20 tablet cyclobenzaprine 10 mg tablet 10 - 20 mg PO BEDTIME 07/10/18 08/01/20 diphenhydramine HCl 25 mg tablet 25 mg PO BEDTIME 07/10/18 08/01/20 (Benadryl Allergy) folic acid 1 mg tablet 1 mg PO DAILY 07/10/18 08/01/20 gabapentin 100 mg capsule 100 mg PO TID 07/10/18 08/01/20 leflunomide 20 mg tablet 20 mg PO DAILY 07/10/18 08/01/20 lovastatin 10 mg tablet 20 mg PO DAILY 07/10/18 08/01/20 tramadol 50 mg tablet 50 mg PO TID 07/10/18 08/01/20 amlodipine 5 mg tablet (Norvasc) 5 mg PO DAILY 07/30/19 08/01/20 Xanax 0.5 mg PRN PRN Anxiety 04/28/20 08/01/20 clopidogrel 75 mg tablet 75 mg DAILY 04/28/20 08/01/20 fexofenadine 180 mg tablet 180 mg PO DAILY 04/28/20 08/01/20 rabeprazole 20 mg tablet,delayed 20 mg PO DAILY 04/28/20 08/01/20 release (AcipHex) losartan 25 mg tablet 25 mg PO DAILY 08/01/20 08/01/20 Previous Rx's Medication Instructions Recorded epinephrine 0.3 mg/0.3 mL 0.3 mg (0.3 mL) IM X1 ##1 02/29/16 injection, auto-injector Allergies Allergy/AdvReac Type Severity Reaction Status Date / Time ciprofloxacin [CIPROFLOXACIN] Allergy Unknown Verified 04/26/22 14:30 doxycycline [DOXYCYCLINE] Allergy Unknown Verified 04/26/22 14:30 erythromycin base Allergy Unknown Verified 04/26/22 14:30 [ERYTHROMYCIN BASE] hydrocodone [From VICODIN] Allergy Unknown Verified 04/26/22 14:30 penicillin V [From PEN-VEE K] Allergy Unknown Verified 04/26/22 14:30 Review of Systems Review of Systems Narrative: GENERAL: negative chills, fatigue, malaise, fever, sweats. HEENT: negative sinus pain, ear pain, sore throat RESPIRATORY: negative dyspnea, cough CARDIOVASCULAR: negative chest pain, palpitations GASTROINTESTINAL: negative nausea, vomiting, abdominal pain : negative dysuria, frequency, hematuria MUSCULOSKELETAL: Positive muscle or bony pain SKIN: negative rash, skin lesions NEUROLOGIC: negative weakness, numbness ROS Unobtainable: All systems reviewed & are unremarkable except as noted in HPI and below Patient History Medical History (Updated 05/06/22 @ 00:00 by ) Acute dehydration Anemia Macrocytic anemia Orthostatic hypotension Rheumatoid arthritis Surgical History History of cataract removal with insertion of prosthetic lens Status post appendectomy Status post hemorrhoidectomy Status post hysterectomy Family History Brother Cancer Diabetes mellitus Heart disease Hypertension Hyperlipidemia Brother Cancer Diabetes mellitus Heart disease Hypertension Hyperlipidemia Sister Age: 93 Heart disease Hypertension Hyperlipidemia Social History Smoking Status: Never smoker Smoking Status: Never smoker alcohol intake frequency: holidays/special occasions only Substance Use Type: marijuana Exam Narrative Exam Narrative: GENERAL: in no distress, not toxic not dyspneic HEAD: Normocephalic. EYES: Pupils equal round ENT: Mucous membranes moist. NECK: Trachea midline. CARDIOVASCULAR: Regular rate and rhythm without murmurs RESPIRATORY: Clear to auscultation. Breath sounds equal bilaterally. No wheezes, rales, or rhonchi. GASTROINTESTINAL: Abdomen soft, non-tender EXTREMITIES: No gross deformities. Examination left shoulder no gross deformity. Able to bring hand above her head across her chest. Left shoulders nontender. Examination right hip. Nontender. No shortening or rotation of the right leg. Able to flex and extend at the hip without difficulty. BACK: No flank tenderness. NEURO: AOx4. SKIN: Warm and dry. Reproducible left axillary/upper axillary rib tenderness but no flail no bruising no crepitus. Tenderness extends anteriorly and posteriorly PSYCH: Not anxious, is cooperative Initial Vital Signs Initial Vital Signs: Vital Signs Temperature 98.7 F 04/26/22 14:30 Pulse Rate 76 04/26/22 14:30 Respiratory Rate 18 04/26/22 14:30 Blood Pressure 144/64 H 04/26/22 14:30 Pulse Oximetry 99 04/26/22 14:30 Oxygen Delivery Method Room Air 04/26/22 14:30 Course Orders Ordered: ED Orders 04/26/22 14:36 XR shoulder LT min 2V Stat 04/26/22 16:31 XR hip w pel if done RT 2V Stat XR ribs LT min 3V w CXR1V Stat Vital Signs Vital signs: Vital Signs - 8 hr 04/26/22 14:30 04/26/22 17:17 04/26/22 17:17 Temperature 98.7 F Pulse Rate 76 79 Respiratory Rate 18 Blood Pressure 144/64 H 191/81 H Pulse Oximetry 99 99 Oxygen Delivery Method Room Air MDM - Fall Imaging Data Extremity x-ray #1: Radiologist's Impression: PROCEDURE:? XR SHOULDER LT MIN 2V ? INDICATIONS:? Pt's fell on her, now c/o left shoulder pain. ? TECHNIQUE:? 3 views of the shoulder were acquired.? ? COMPARISON:? [facility], CR, XR SHOULDER 2+ VIEWS LEFT, 08/30/2021, 12:00.? [facility], CR, XR SHOULDER 2+ VIEWS LEFT, 09/15/2021, 13:10. ? FINDINGS:? ? Bones:? 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 No displaced fracture or dislocation identified ? Soft tissues:? No suspicious calcifications. ? IMPRESSION:? No acute radiographic abnormality.? Left shoulder reverse arthroplasty is in place.? If there is high concern for occult injury, consider repeat radiography or CT.? ? ? Dictated by: Heath Ku M.D. on 04/26/2022 at 15:41 ? ? Approved by: Heath Ku M.D. on 04/26/2022 at 15:42 ? [facility] Narrative Medical decision making narrative: Patient here with . Complains of left upper rib pain as well as right hip pain. Patient has chronic right hip pain this is not new. Patient states a week and a half ago her was falling out of the closet and she tried catching him and they both fell to the floor with him landing on top of her left chest. Has been doing well. Her left shoulder has had had surgery. However at this time no complaints of left shoulder pain. It is left upper rib pain. It radiates from the posterior upper ribs underneath her armpits and to the sternum. She was supposed to Have surgery on it last year. However she forgot to stop her Plavix. Right hip pain has been worse since her fall. She has been walking. No trouble talking or breathing. No difficulties with moving her left shoulder. Denies denies any loss of consciousness. No neck pain. Her head did strike her face but she states no pain from that. Denies any back pain After history and exam x-ray left shoulder x-ray left rib x-ray right hip [facility] CC: Right hip pain left rib pain Complicating co-morbidities: History of left shoulder surgery Data collected from: Patient and Medical records reviewed: No recent visit for this complaint however seen here 5 days ago for chest pain. Differential considered: Includes but not limited to rib fracture rib contusion pneumothorax chest contusion right hip contusion/fracture/dislocation Exam documented above, pertinent findings include: Tender left ribs, mildly tender right hip Imaging studies independently reviewed: X-ray left shoulder no acute process, x-ray right hip with pelvis, as well as x-ray left ribs with chest no acute process Treatments: No medications indicated at this time. Re-evaluations: Blood pressure has improved 176/75. However patient states her blood pressure always waxes and wanes with walking, she just got back from the bathroom. This is not new. It did not make her left rib pain worse. Reviewed results with patient. At this time reassuring. However she does need to have her blood pressure re-evaluated by primary care, I discussed with her to follow up with the primary care next week. Discussion: Appropriate for discharge home. Exam is reassuring. Patient states her pain today is not what she had been seen for 5 days ago. This is reproducible pain. Pain may worsen or surface after injuries but variable for each person. She does have reproducible pain. At this time I do not believe this is cardiac in origin. No diaphoresis no nausea no dyspnea. Is tender diffusely on palpation of the ribs on the left side. She has been ambulating without difficulty with the right hip. No CT imaging indicated. Radiographs are reassuring that were done here. Return precautions reviewed with her. Blood pressure to be rechecked with primary care next week. She agrees with this plan and desires discharge home. at bedside. Diagnosis: Left rib contusion right hip contusion Discharge Plan Departure Patient Disposition: Home Clinical Impression: Contusion of rib on left side, Contusion of hip, right Instructions: DI for Contusion, DI for Rib Contusion Activity Restrictions/Additional Instructions: Please see family doctor in a week for re-evaluation of your injuries. Also to have your blood pressure rechecked. May take Tylenol for pain. Return if worse if any questions or concerns. Today's x-rays have been reassuring. No fractures were seen. Prescriptions: No Action epinephrine 0.3 MG/0.3 ML auto-injector 0.3 mg IM X1 Qty: 1 1RF leflunomide [Arava] 20 mg tablet 20 mg PO DAILY cyclobenzaprine 10 mg tablet 10 - 20 mg PO BEDTIME lovastatin 10 mg tablet 20 mg PO DAILY tramadol 50 mg tablet 50 mg PO TID Premarin 0.625 mg tablet 0.625 mg PO Q2W gabapentin 100 mg capsule 100 mg PO TID diphenhydramine HCl [Benadryl Allergy] 25 MG tablet 25 mg PO BEDTIME folic acid 1 MG tablet 1 mg PO DAILY amlodipine [Norvasc] 5 mg Tablet 5 mg PO DAILY rabeprazole [AcipHex] 20 mg Tablet,Delayed Release (Dr/Ec) 20 mg PO DAILY clopidogrel 75 mg Tablet 75 mg DAILY fexofenadine 180 mg Tablet 180 mg PO DAILY Xanax 0.5 mg PRN PRN (Reason: Anxiety) losartan 25 mg Tablet 25 mg PO DAILY Referrals: Mckenzie Gomez ARNP [Primary Care Provider] - Stand Alone Forms: Patient Portal/API
[2022-04-26 17:17] VITALS: BP 191/81; PULSE 79; O2SAT 99
[2022-04-26 17:30] VITALS: PULSE 79; O2SAT 98
[2022-04-26 17:37] VITALS: BP 180/77; PULSE 78; O2SAT 99
[2022-04-26 17:46] VITALS: BP 177/76; PULSE 78; O2SAT 98
== END 2022-04-26 17:54 | disposition home or self-care (01) ==
PROVIDERS: Emergency Provider Emergency Medicine; PCP Nurse Practitioner Family
DX: S20.212A Contusion of left front wall of thorax, initial encounter (principal); S70.01XA Contusion of right hip, initial encounter; W18.30XA Fall on same level, unspecified, initial encounter
CPT/HCPCS: 71101; 73030; 73502; 99283

== ENCOUNTER 2023-01-27 14:09 | Emergency (ER) | payer MEDICARE, OTHER, SELFPAY ==
[2023-01-27] VITALS (11 sets, daily range): BP systolic 167–217; BP diastolic 71–100; PULSE 81–101; RESP 18–31; TEMP 36.4; O2SAT 97–99; BMI 21.2
--- NOTE | 2023-01-27 14:35 | DI.RAD.S_ITS ---
PROCEDURE: XR CHEST 1V INDICATIONS: chest pain TECHNIQUE: One view of the chest was acquired. COMPARISON: [facility], CR, XR CHEST 1 VIEW, 09/16/2022, 21:51. [facility], CR, XR CHEST 1V, 04/21/2022, 15:38. FINDINGS: Surgical changes and devices: Left shoulder arthroplasty hardware is partially seen. Lungs and pleura: An incomplete inspiratory result is noted, causing a crowded appearance to the lung markings. No focal infiltrates are seen. No pneumothorax or significant pleural effusions are seen. Mediastinum: The cardiac contours are within normal limits. The aorta demonstrates calcification and tortuosity. Bones and chest wall: No suspicious bony lesions. Right shoulder calcific can be seen. IMPRESSION: Portable chest within normal limits for age. Dictated by: Miguel A Carmona M.D. on 01/27/2023 at 14:03 Approved by: Miguel A Carmona M.D. on 01/27/2023 at 14:05
--- NOTE | 2023-01-27 15:03 | ED_ITS ---
HPI - SOB/Dyspnea General Chief Complaint: Shortness of Breath/Dyspnea Stated Complaint: upper resp symptoms Time Seen by Provider: 01/27/23 14:43 Source: patient Mode of arrival: Ambulatory Limitations: no limitations History of Present Illness HPI Narrative: Patient 82-year-old female history of hypertension, rheumatoid arthritis presenting today with upper respiratory like symptoms and chest discomfort. She reports that both she and her have had upper respiratory like symptoms she is had a cough she is had nasal congestion been ongoing for about 2 weeks. She initially was seen at a walk-in clinic they gave her some Robitussin cough syrup she says has not helped at all. She does not feel like she is improving. She feels like she is having some chest tightness. She is a nonproductive cough no fever or chills. She is not had decreased appetite. Reports and records have been reviewed at some point there was a cardiac catheterization without stent but she remains on Plavix. She is not really having chest pain she feels like she just congestion with cold-like symptoms. She took a home COVID test yesterday and it was negative. Related Data Home Medications Medication Instructions Recorded Confirmed conjugated estrogens 0.625 mg 0.625 mg PO Q2W 07/10/18 08/01/20 tablet cyclobenzaprine 10 mg tablet 10 - 20 mg PO BEDTIME 07/10/18 08/01/20 diphenhydramine HCl 25 mg tablet 25 mg PO BEDTIME 07/10/18 08/01/20 (Benadryl Allergy) folic acid 1 mg tablet 1 mg PO DAILY 07/10/18 08/01/20 gabapentin 100 mg capsule 100 mg PO TID 07/10/18 08/01/20 leflunomide 20 mg tablet 20 mg PO DAILY 07/10/18 08/01/20 lovastatin 10 mg tablet 20 mg PO DAILY 07/10/18 08/01/20 tramadol 50 mg tablet 50 mg PO TID 07/10/18 08/01/20 amlodipine 5 mg tablet (Norvasc) 5 mg PO DAILY 07/30/19 08/01/20 Xanax 0.5 mg PRN PRN Anxiety 04/28/20 08/01/20 clopidogrel 75 mg tablet 75 mg DAILY 04/28/20 08/01/20 fexofenadine 180 mg tablet 180 mg PO DAILY 04/28/20 08/01/20 rabeprazole 20 mg tablet,delayed 20 mg PO DAILY 04/28/20 08/01/20 release (AcipHex) losartan 25 mg tablet 25 mg PO DAILY 08/01/20 08/01/20 Previous Rx's Medication Instructions Recorded epinephrine 0.3 mg/0.3 mL 0.3 mg (0.3 mL) IM X1 ##1 02/29/16 injection, auto-injector benzonatate 200 mg capsule 200 mg PO BID PRN cough #30 caps 01/27/23 benzonatate 200 mg capsule 200 mg PO TID PRN cough #20 caps 01/27/23 Allergies Allergy/AdvReac Type Severity Reaction Status Date / Time ciprofloxacin [CIPROFLOXACIN] Allergy Unknown Verified 04/26/22 14:30 doxycycline [DOXYCYCLINE] Allergy Unknown Verified 04/26/22 14:30 erythromycin base Allergy Unknown Verified 04/26/22 14:30 [ERYTHROMYCIN BASE] hydrocodone [From VICODIN] Allergy Unknown Verified 04/26/22 14:30 penicillin V [From PEN-VEE K] Allergy Unknown Verified 04/26/22 14:30 Patient History Medical History (Updated 01/27/23 @ 17:24 by Susan Laws DO) Rheumatoid arthritis Macrocytic anemia Anemia Acute dehydration Orthostatic hypotension Surgical History History of cataract removal with insertion of prosthetic lens Status post hysterectomy Status post hemorrhoidectomy Status post appendectomy Family History Brother Cancer Diabetes mellitus Heart disease Hypertension Hyperlipidemia Brother Cancer Diabetes mellitus Heart disease Hypertension Hyperlipidemia Sister Age: 94 Heart disease Hypertension Hyperlipidemia Social History Smoking Status: Never smoker Smoking Status: Never smoker alcohol intake frequency: holidays/special occasions only Substance Use Type: marijuana Exam Initial Vital Signs Initial Vital Signs: Vital Signs Temperature 97.5 F L 01/27/23 14:23 Pulse Rate 87 01/27/23 14:23 Respiratory Rate 22 01/27/23 14:23 Blood Pressure 191/79 H 01/27/23 14:23 Pulse Oximetry 99 01/27/23 14:23 Oxygen Delivery Method Room Air 01/27/23 14:23 GENERAL: Alert well-appearing 82-year-old female HEENT: Head atraumatic,EOMI, pupils reactive, face symmetric, moist mucous membranes CARDIOVASCULAR: Regular rate and rhythm without murmurs, rubs or gallops. RESPIRATORY: Breath sounds equal bilaterally, no wheezes rales or rhonchi. ABDOMEN: Soft, nontender. Normoactive bowel sounds all 4 quadrants. No guarding or rebound. EXTREMITIES: Normal range of motion, no clubbing or edema. Neurovascularly intact NEUROLOGICAL: Alert and oriented x4.Normal gait and speech. SKIN: Warm, dry, no laceration, no petechiae, no rashes or lesions. Course Orders Ordered: ED Orders 01/27/23 14:35 XR chest 1V Stat EKG-12 Lead Stat 01/27/23 14:46 Covid-19 + FLU A/B + RSV - PCR Stat 01/27/23 15:04 Complete Blood Count AUTO DIFF Stat Comprehensive Metabolic Panel Stat Lactate (Lactic Acid) Stat Lipase Stat Magnesium Stat PTT Partial Thromboplastin David Stat Prothrombin Time INR Stat Troponin & CK Cardiac Panel Stat Discontinued Medications Aspirin (Aspirin 81 Mg Chew Tab) 324 mg PO NOW ONE Stop: 01/27/23 14:36 Last Admin: 01/27/23 15:24 Dose: Not Given Documented By: SILVIA Sodium Chloride (Normal Saline 0.9%) 1,000 mls @ 1,000 mls/hr IV BOLUS ONE Stop: 01/27/23 17:13 Last Infusion: 01/27/23 17:38 Dose: Infused Documented By: Infusion: 01/27/23 17:38 Dose: 0 mls/hr Documented By: Infusion: 01/27/23 17:04 Dose: 1,000 mls/hr Documented By: Admin: 01/27/23 16:23 Dose: 1,000 mls/hr Documented By: MPO Vital Signs Vital signs: Vital Signs - 8 hr 01/27/23 14:23 01/27/23 14:49 01/27/23 15:00 Temperature 97.5 F L Pulse Rate 87 86 Respiratory Rate 22 Blood Pressure 191/79 H 181/74 H Pulse Oximetry 99 Oxygen Delivery Method Room Air 01/27/23 15:00 01/27/23 15:30 01/27/23 15:30 Temperature Pulse Rate 87 85 Respiratory Rate 18 22 Blood Pressure 167/71 H Pulse Oximetry 97 Oxygen Delivery Method Room Air 01/27/23 16:00 01/27/23 16:00 01/27/23 16:30 Temperature Pulse Rate 81 Respiratory Rate 28 H Blood Pressure 177/74 H 189/88 H Pulse Oximetry 98 Oxygen Delivery Method 01/27/23 16:30 01/27/23 17:00 01/27/23 17:01 Temperature Pulse Rate 88 90 Respiratory Rate 21 Blood Pressure 213/93 H Pulse Oximetry 98 98 Oxygen Delivery Method Room Air 01/27/23 17:01 01/27/23 17:09 01/27/23 17:09 Temperature Pulse Rate 88 100 H Respiratory Rate 29 H 26 H Blood Pressure 212/100 H Pulse Oximetry 99 98 Oxygen Delivery Method Room Air 01/27/23 17:30 01/27/23 17:30 01/27/23 17:39 Temperature Pulse Rate 101 H Respiratory Rate 31 H 28 H Blood Pressure 217/93 H Pulse Oximetry 99 Oxygen Delivery Method Room Air MDM - SOB/Dyspnea Lab Data 01/27/23 15:04 01/27/23 15:04 Labs: Lab Results 01/27/23 01/27/23 Range/Units 14:46 15:04 WBC 10.0 (4.5-11.0) X10^3/uL RBC 2.81 L (4.0-5.2) X10^6/uL Hgb 8.7 L (12.0-16.0) g/dL Hct 25.8 L (36-46) % MCV 91.8 (80-100) fL MCH 30.9 (26-34) PG MCHC 33.7 (30-36) % RDW 16.4 H (11.6-14.8) % Plt Count 230 (150-400) X10^3/uL Neut % (Auto) 58.9 (50-75) % Lymph % (Auto) 20.0 L (25-40) % [place] % (Auto) 16.2 H (3-14) % Eos % (Auto) 3.8 (2-4) % Baso % (Auto) 1.1 (0-2) % Neut # (Auto) 5900 (4925-1201) /uL Lymph # (Auto) 2000 (2267-6738) /uL [place] # (Auto) 1600 H (0-900) /uL Eos # (Auto) 400 (0-450) /uL Baso # (Auto) 100 (0-100) /uL PT 11.8 (9.4-12.5) SECONDS INR 1.0 (0.9-1.3) APTT 29 (25.1-36.5) SECONDS Sodium 137 (137-145) mmol/L Potassium 4.2 (3.4-5.1) mmol/L Chloride 111 H (98-107) mmol/L Carbon Dioxide 18 L (22-32) mmol/L BUN 35 H (7-17) mg/dL Creatinine 1.65 H (0.52-1.04) mg/dL Estimated GFR 31 L (>60) mL/min BUN/Creatinine Ratio 21.2 (6-22) Glucose 143 H (80-110) mg/dL Lactate 1.1 (0.7-2.1) mmol/L Calcium 8.7 (8.4-10.2) mg/dL Magnesium 1.8 (1.6-2.3) mg/dL Total Bilirubin 0.5 (0.2-1.3) mg/dL AST 26 (14-36) IU/L ALT 15 (<35) IU/L Alkaline Phosphatase 83 (38-126) U/L Total Creatine Kinase 68 (30-135) U/L Troponin I < 0.012 (0.01-0.034) ng/mL Total Protein 7.5 (6.3-8.2) g/dL Albumin 3.4 L (3.5-5.0) g/dL Globulin 4.1 (1.7-4.1) g/dL Albumin/Globulin Ratio 0.8 L (1.0-2.8) Lipase 52 (23-300) U/L SARS-CoV-2 (PCR) Positive H (Negative) Influenza A (RT-PCR) Flu a negative (NEGATIVE) Influenza B (RT-PCR) Flu b negative (NEGATIVE) RSV (PCR) Positive A (Negative) Imaging Data Chest x-ray: Radiologist's Impression: PROCEDURE: XR CHEST 1V INDICATIONS: chest pain TECHNIQUE: One view of the chest was acquired. COMPARISON: [facility], CR, XR CHEST 1 VIEW, 09/16/2022, 21:51. [facility], CR, XR CHEST 1V, 04/21/2022, 15:38. FINDINGS: Surgical changes and devices: Left shoulder arthroplasty hardware is partially seen. Lungs and pleura: An incomplete inspiratory result is noted, causing a crowded appearance to the lung markings. No focal infiltrates are seen. No pneumothorax or significant pleural effusions are seen. Mediastinum: The cardiac contours are within normal limits. The aorta demonstrates calcification and tortuosity. Bones and chest wall: No suspicious bony lesions. Right shoulder calcific can be seen. IMPRESSION: Portable chest within normal limits for age. Dictated by: Miguel A Carmona M.D. on 01/27/2023 at 14:0 ECG Data Prior ECG tracings: available for review Interpretation: Sinus rhythm rate 85 MD interval 160 QRS [address] changes similar to previous MDM Narrative Medical decision making narrative: Patient well-appearing 82-year-old female who has had upper respiratory like ongoing for about 2. She has a cough that is not getting better. He is hypoxic or tachycardic. Chest x-ray reviewed no pneumonia Blood work does show anemia hemoglobin 8.7 hematocrit 25.8. Previous blood work at 10.5 hematocrit 31.5 however she has been anemic as low as 8.7 when she last had COVID. Kidney function at baseline creatinine 1.65 previously 1.8 electrolytes are do able bicarb is 18, negative troponin Viral panel is positive for RSV and COVID. \at this time patient has a viral illness. She is no respiratory distress she is not hypoxic. At this time supportive care. She is requesting something to help with the cough. She stops breathing with Vicodin. Hesitant to give her any stronger cough suppressant. She was taking Robitussin but it did not help. Her got Kiesha Rangel and she would like #[phone]: Appropriate Treatment for Patients with URI X The patient was diagnosed with upper respiratory infection and was not prescribed or dispensed an antibiotic. [SATISFIES MIPS PERFORMANCE] [] The patient has competing comorbid condition within the last 12 months. The comorbid condition was [] (e.g., neutropenia, cystic fibrosis, chronic bronchitis, pulmonary edema, respiratory failure, rheumatoid lung disease). [MIPS PERFORMANCE EXCEPTION/EXCLUSION] [] The patient is already on antibiotics, or has taken them within the last 30 days. [MIPS PERFORMANCE EXCEPTION/EXCLUSION] [] The patient had a competing diagnosis of [] (e.g. acute otitis media, chronic sinusitis, cellulitis, UTI, etc.). [[facility] PERFORMANCE EXCEPTION/EXCLUSION] [] The patient was diagnosed with upper respiratory infection and was prescribed or dispensed an antibiotic. [DOES NOT SATISFY [facility] PERFORMANCE] Discharge Plan Departure Patient Disposition: Home Clinical Impression: COVID-19, RSV (respiratory syncytial virus infection), Anemia Instructions: COVID-19 Activity Restrictions/Additional Instructions: *You have been diagnosed with COVID-19, RSV, anemia *What to do: At this time you have 2 different viruses which is why you do not feel very good and continue to have cough. Unfortunately there is not much to do for the cough of the cough syrup is not working. You can try [id number] Mucinex. Please try and stay hydrated with water or Gatorade You were also anemic I do recommend that you have repeat blood work done this week to check your hemoglobin. *Continue to take medications as directed Tylenol 650 mg every 4-6 hours if needed for pain or fever Motrin 600 mg every 6 fever *Follow up with your primary care provider in 2-3 days or call [phone] *Return to ER if you should have increased difficulty breathing weakness or any new, worsening or concerning symptoms Prescriptions: New benzonatate 200 mg capsule 200 mg PO BID PRN (Reason: cough) Qty: 30 0RF benzonatate 200 mg capsule 200 mg PO TID PRN (Reason: cough) Qty: 20 0RF No Action epinephrine 0.3 MG/0.3 ML auto-injector 0.3 mg IM X1 Qty: 1 1RF leflunomide [Arava] 20 mg tablet 20 mg PO DAILY cyclobenzaprine 10 mg tablet 10 - 20 mg PO BEDTIME lovastatin 10 mg tablet 20 mg PO DAILY tramadol 50 mg tablet 50 mg PO TID Premarin 0.625 mg tablet 0.625 mg PO Q2W gabapentin 100 mg capsule 100 mg PO TID diphenhydramine HCl [Benadryl Allergy] 25 MG tablet 25 mg PO BEDTIME folic acid 1 MG tablet 1 mg PO DAILY amlodipine [Norvasc] 5 mg Tablet 5 mg PO DAILY rabeprazole [AcipHex] 20 mg Tablet,Delayed Release (Dr/Ec) 20 mg PO DAILY clopidogrel 75 mg Tablet 75 mg DAILY fexofenadine 180 mg Tablet 180 mg PO DAILY Xanax 0.5 mg PRN PRN (Reason: Anxiety) losartan 25 mg Tablet 25 mg PO DAILY Referrals: Mceknzie Gomez ARNP [Primary Care Provider] - Stand Alone Forms: Patient Portal/API
[2023-01-27 15:11] LABS: Add Manual Diff / Slide Review NO; Basophils Absolute Auto 100 /uL (0-100); Basophils Percent Auto 1.1 % (0-2); Eosinophils Absolute Auto 400 /uL (0-450); Eosinophils Percent Auto 3.8 % (2-4); Hematocrit 25.8 % (36-46); Hemoglobin 8.7 g/dL (12.0-16.0); Lymphocytes Absolute Auto 2000 /uL (1100-4500); Mean Corpuscular HGB Conc 33.7 % (30-36); Mean Corpuscular Hemoglobin 30.9 PG (26-34); Mean Corpuscular Volume 91.8 fL (80-100); Monocytes Absolute Auto 1600 /uL (0-900); Monocytes Percent Auto 16.2 % (3-14); Neutrophils Absolute Auto 5900 /uL (1500-7000); Neutrophils Percent Auto 58.9 % (50-75); Platelet Count 230 X10^3/uL (150-400); Red Blood Cell Count 2.81 X10^6/uL (4.0-5.2); Red Cell Distribution Width 16.4 % (11.6-14.8)
[2023-01-27 15:18] LABS: Prothrombin Time 11.8 SECONDS (9.4-12.5)
[2023-01-27 15:21] LABS: PTT Partial Thromboplastin Tim 29 SECONDS (25.1-36.5)
--- NOTE | 2023-01-27 15:25 | PC.NURSE ---
Pt states history of anemia and blood transfusion in october at [facility] . Back surgery this past summer at [facility].
[2023-01-27 15:27] LABS: Alanine Aminotransferase 15 IU/L (<35); Albumin 3.4 g/dL (3.5-5.0); Albumin Globulin Ratio 0.8 (1.0-2.8); Alkaline Phosphatase 83 U/L (38-126); Aspartate Aminotransferase 26 IU/L (14-36); BUN Creatinine Ratio 21.2 (6-22); Bilirubin Total 0.5 mg/dL (0.2-1.3); Blood Urea Nitrogen 35 mg/dL (7-17); Calcium 8.7 mg/dL (8.4-10.2); Carbon Dioxide 18 mmol/L (22-32); Chloride 111 mmol/L (98-107); Creatine Kinase 68 U/L (30-135); Estimated Glomerular Filt Rate 31 mL/min (>60); Globulin 4.1 g/dL (1.7-4.1); Glucose 143 mg/dL (80-110); HEMOLYSIS < 15 (0-50); Lipase 52 U/L (23-300); Magnesium 1.8 mg/dL (1.6-2.3); Potassium 4.2 mmol/L (3.4-5.1); Sodium 137 mmol/L (137-145); Total Protein 7.5 g/dL (6.3-8.2)
[2023-01-27 15:37] LABS: Influenza A - CEPHEID Flu A NEGATIVE (NEGATIVE); Influenza B - CEPHEID Flu B NEGATIVE (NEGATIVE); Respiratory Syncytial Virus POSITIVE (Negative)
[2023-01-27 15:37] LABS: Troponin I < 0.012 ng/mL (0.01-0.034)
[2023-01-27 15:39] LABS: COVID-19 CEPHEID 4-PLEX PCR POSITIVE (Negative)
[2023-01-27 16:23] LABS: Lactate (Lactic Acid) 1.1 mmol/L (0.7-2.1)
[2023-01-27] MEDS: SODIUM CHLORIDE 0.9% 1,000 ML 1000 ML IV (16:23)
== END 2023-01-27 17:55 | disposition home or self-care (01) ==
PROVIDERS: Emergency Provider Emergency Medicine; PCP Nurse Practitioner Family
DX: U07.1 COVID-19 (principal); J06.9 Acute upper respiratory infection, unspecified; B97.4 Respiratory syncytial virus as the cause of diseases classified elsewhere; D64.9 Anemia, unspecified; R05.9 Cough, unspecified; Z79.899 Other long term (current) drug therapy
CPT/HCPCS: 0241U; 36415; 71045; 80053; 82550; 83605; 83690; 83735; 84484; 85025; 85610; 85730; 93005; 93010; 96360; 99284

== ENCOUNTER 2023-03-05 12:19 | Emergency (ER) | payer MEDICARE, OTHER, SELFPAY ==
[2023-03-05] VITALS (18 sets, daily range): BP systolic 155–194; BP diastolic 66–77; PULSE 71–83; RESP 11–30; TEMP 36.6–37.2; O2SAT 94–100; BMI 21.2
--- NOTE | 2023-03-05 12:33 | DI.RAD.S_ITS ---
PROCEDURE: XR CHEST 1V INDICATIONS: chest pain TECHNIQUE: One view of the chest was acquired. COMPARISON: [facility], CR, XR CHEST 1V, 01/27/2023, 14:47. FINDINGS: Surgical changes and devices: Left shoulder arthroplasty. Lungs and pleura: Lungs are clear. No pleural effusions or pneumothorax. Mediastinum: Mediastinal contours appear normal. Heart size is normal. Bones and chest wall: No suspicious bony lesions. Overlying soft tissues appear unremarkable. IMPRESSION: No acute cardiopulmonary abnormality is seen. Dictated by: Anila Martel M.D. on 03/05/2023 at 13:10 Approved by: Anila Martel M.D. on 03/05/2023 at 13:10
--- NOTE | 2023-03-05 12:37 | ED_ITS ---
HPI - Recheck/Abnormal Lab/Rx General Chief Complaint: Recheck/Abnormal Lab/Rx Stated Complaint: abnormal labs, chest and abdominal pain Time Seen by Provider: 03/05/23 12:37 Source: patient Mode of arrival: Wheelchair History of Present Illness HPI narrative: Patient 82-year-old female history of hypertension, rheumatoid arthritis, anemia presenting today with episode of shortness of breath. She reports that last night she was sitting at the dinner table a couple friends over she had some sudden onset shortness of breath lasted for about 30 minutes. No chest pain. Last hemoglobin here was 8.7 however she reports that 7.5 at a clinic. She reports that she is previously had issues it was due to methotrexate. She denies fever chills abdominal pain nausea or vomiting. She denies any headache. Related Data Home Medications Medication Instructions Recorded Confirmed conjugated estrogens 0.625 mg 0.625 mg PO Q2W 07/10/18 08/01/20 tablet cyclobenzaprine 10 mg tablet 10 - 20 mg PO BEDTIME 07/10/18 08/01/20 diphenhydramine HCl 25 mg tablet 25 mg PO BEDTIME 07/10/18 08/01/20 (Benadryl Allergy) folic acid 1 mg tablet 1 mg PO DAILY 07/10/18 08/01/20 gabapentin 100 mg capsule 100 mg PO TID 07/10/18 08/01/20 leflunomide 20 mg tablet 20 mg PO DAILY 07/10/18 08/01/20 lovastatin 10 mg tablet 20 mg PO DAILY 07/10/18 08/01/20 tramadol 50 mg tablet 50 mg PO TID 07/10/18 08/01/20 amlodipine 5 mg tablet (Norvasc) 5 mg PO DAILY 07/30/19 08/01/20 Xanax 0.5 mg PRN PRN Anxiety 04/28/20 08/01/20 clopidogrel 75 mg tablet 75 mg DAILY 04/28/20 08/01/20 fexofenadine 180 mg tablet 180 mg PO DAILY 04/28/20 08/01/20 rabeprazole 20 mg tablet,delayed 20 mg PO DAILY 04/28/20 08/01/20 release (AcipHex) losartan 25 mg tablet 25 mg PO DAILY 08/01/20 08/01/20 Previous Rx's Medication Instructions Recorded epinephrine 0.3 mg/0.3 mL 0.3 mg (0.3 mL) IM X1 ##1 02/29/16 injection, auto-injector benzonatate 200 mg capsule 200 mg PO BID PRN cough #30 caps 01/27/23 benzonatate 200 mg capsule 200 mg PO TID PRN cough #20 caps 01/27/23 Allergies Allergy/AdvReac Type Severity Reaction Status Date / Time ciprofloxacin [CIPROFLOXACIN] Allergy Unknown Verified 03/05/23 12:33 doxycycline [DOXYCYCLINE] Allergy Unknown Verified 03/05/23 12:33 erythromycin base Allergy Unknown Verified 03/05/23 12:33 [ERYTHROMYCIN BASE] hydrocodone [From VICODIN] Allergy Unknown Verified 03/05/23 12:33 penicillin V [From PEN-VEE K] Allergy Unknown Verified 03/05/23 12:33 Patient History Medical History (Updated 03/05/23 @ 16:14 by Susan Laws DO) Rheumatoid arthritis Macrocytic anemia Anemia Acute dehydration Orthostatic hypotension Surgical History History of cataract removal with insertion of prosthetic lens Status post hysterectomy Status post hemorrhoidectomy Status post appendectomy Family History Brother Cancer Diabetes mellitus Heart disease Hypertension Hyperlipidemia Brother Cancer Diabetes mellitus Heart disease Hypertension Hyperlipidemia Sister Age: 94 Heart disease Hypertension Hyperlipidemia Social History Smoking Status: Never smoker Smoking Status: Never smoker alcohol intake frequency: holidays/special occasions only Substance Use Type: marijuana Exam Initial Vital Signs Initial Vital Signs: Vital Signs Temperature 99.0 F 03/05/23 12:22 Pulse Rate 78 03/05/23 12:22 Respiratory Rate 14 03/05/23 12:22 Blood Pressure 170/72 H 03/05/23 12:22 Pulse Oximetry 99 03/05/23 12:22 Oxygen Delivery Method Room Air 03/05/23 12:22 GENERAL: Alert very pleasant 82-year-old female no acute distress HEENT: Head atraumatic,EOMI, pupils reactive, face symmetric, moist mucous membranes CARDIOVASCULAR: Regular rate and rhythm without murmurs, rubs or gallops. RESPIRATORY: Breath sounds equal bilaterally, no wheezes rales or rhonchi. ABDOMEN: Soft, nontender. Normoactive bowel sounds all 4 quadrants. No guarding or rebound. EXTREMITIES: Normal range of motion, no clubbing or edema. Neurovascularly intact NEUROLOGICAL: Alert and oriented x4.Normal gait and speech. SKIN: Warm, dry, no laceration, no petechiae, no rashes or lesions. Course Orders Ordered: ED Orders 03/05/23 12:33 XR chest 1V Stat EKG-12 Lead Stat 03/05/23 12:35 Complete Blood Count AUTO DIFF Stat Comprehensive Metabolic Panel Stat Lipase Stat Magnesium Stat PRBC [Packed Cells] Stat PTT Partial Thromboplastin David Stat Prothrombin Time INR Stat Troponin & CK Cardiac Panel Stat Type and Screen Stat Vital Signs Vital signs: Vital Signs - 8 hr 03/05/23 12:22 03/05/23 12:27 03/05/23 12:28 Temperature 99.0 F Pulse Rate 78 Respiratory Rate 14 Blood Pressure 170/72 H 170/72 H Pulse Oximetry 99 97 Oxygen Delivery Method Room Air 03/05/23 12:28 03/05/23 12:30 03/05/23 12:32 Temperature Pulse Rate 81 83 76 Respiratory Rate 11 L Blood Pressure Pulse Oximetry 100 96 94 Oxygen Delivery Method 03/05/23 12:32 03/05/23 13:00 03/05/23 13:01 Temperature Pulse Rate 74 71 Respiratory Rate 18 17 Blood Pressure 172/73 H Pulse Oximetry 98 100 Oxygen Delivery Method 03/05/23 13:01 03/05/23 13:30 03/05/23 13:31 Temperature Pulse Rate 78 Respiratory Rate 20 Blood Pressure 155/67 H 194/76 H Pulse Oximetry 98 Oxygen Delivery Method 03/05/23 13:31 03/05/23 13:49 03/05/23 13:50 Temperature 97.9 F Pulse Rate 71 75 79 Respiratory Rate 22 29 H 28 H Blood Pressure 182/74 H Pulse Oximetry 100 Oxygen Delivery Method 03/05/23 14:03 03/05/23 14:18 03/05/23 14:19 Temperature 98.2 F Pulse Rate 75 74 74 Respiratory Rate 22 20 21 Blood Pressure 168/66 H Pulse Oximetry 95 98 Oxygen Delivery Method 03/05/23 14:30 03/05/23 14:30 03/05/23 15:00 Temperature Pulse Rate 76 Respiratory Rate 16 Blood Pressure 167/69 H 184/77 H Pulse Oximetry 98 Oxygen Delivery Method Room Air 03/05/23 15:00 03/05/23 15:10 03/05/23 15:10 Temperature 98.9 F Pulse Rate 79 78 Respiratory Rate 21 30 H Blood Pressure 167/69 H Pulse Oximetry 97 97 Oxygen Delivery Method Room Air 03/05/23 16:00 Temperature 98.2 F Pulse Rate 78 Respiratory Rate 22 Blood Pressure 180/76 H Pulse Oximetry Oxygen Delivery Method MDM - Recheck/Abnormal Lab/Rx Lab Data 03/05/23 12:35 03/05/23 12:35 Labs: Lab Results 03/05/23 Range/Units 12:35 WBC 8.6 (4.5-11.0) X10^3/uL RBC 2.58 L (4.0-5.2) X10^6/uL Hgb 7.9 L (12.0-16.0) g/dL Hct 23.6 L (36-46) % MCV 91.6 (80-100) fL MCH 30.6 (26-34) PG MCHC 33.5 (30-36) % RDW 18.0 H (11.6-14.8) % Plt Count 266 (150-400) X10^3/uL Neut % (Auto) 47.6 L (50-75) % Lymph % (Auto) 30.2 (25-40) % [place] % (Auto) 15.3 H (3-14) % Eos % (Auto) 5.2 H (2-4) % Baso % (Auto) 1.7 (0-2) % Neut # (Auto) 4100 (9342-6047) /uL Lymph # (Auto) 2600 (5564-4443) /uL [place] # (Auto) 1300 H (0-900) /uL Eos # (Auto) 400 (0-450) /uL Baso # (Auto) 100 (0-100) /uL PT 11.2 (9.4-12.5) SECONDS INR 1.0 (0.9-1.3) APTT 30 (25.1-36.5) SECONDS Sodium 139 (137-145) mmol/L Potassium 4.0 (3.4-5.1) mmol/L Chloride 112 H (98-107) mmol/L Carbon Dioxide 19 L (22-32) mmol/L BUN 34 H (7-17) mg/dL Creatinine 1.93 H (0.52-1.04) mg/dL Estimated GFR 26 L (>60) mL/min BUN/Creatinine Ratio 17.6 (6-22) Glucose 101 (80-110) mg/dL Calcium 8.9 (8.4-10.2) mg/dL Magnesium 1.8 (1.6-2.3) mg/dL Total Bilirubin 0.5 (0.2-1.3) mg/dL AST 28 (14-36) IU/L ALT 16 (<35) IU/L Alkaline Phosphatase 72 (38-126) U/L Total Creatine Kinase 77 (30-135) U/L Troponin I < 0.012 (0.01-0.034) ng/mL Total Protein 7.6 (6.3-8.2) g/dL Albumin 3.4 L (3.5-5.0) g/dL Globulin 4.2 H (1.7-4.1) g/dL Albumin/Globulin Ratio 0.8 L (1.0-2.8) Lipase 45 (23-300) U/L Blood Type A Positive Antibody Screen Negative Crossmatch See Detail Imaging Data Chest x-ray: Radiologist's Impression: PROCEDURE: XR CHEST 1V INDICATIONS: chest pain TECHNIQUE: One view of the chest was acquired. COMPARISON: [facility], , XR CHEST 1V, 01/27/2023, 14:47. FINDINGS: Surgical changes and devices: Left shoulder arthroplasty. Lungs and pleura: Lungs are clear. No pleural effusions or pneumothorax. Mediastinum: Mediastinal contours appear normal. Heart size is normal. Bones and chest wall: No suspicious bony lesions. Overlying soft tissues appear unremarkable. IMPRESSION: No acute cardiopulmonary abnormality is seen. Dictated by: Anila Martel M.D. on 03/05/2023 at 13:10 Approved by: Anila Martel M.D. on 03/05/2023 at 13: ECG Data Interpretation: Normal sinus rhythm rate 73 ME interval 164 QRS [address] changes MDM Narrative Medical decision making narrative: Patient 82-year-old female history of anemia presenting today with symptomatic anemia. She was having some shortness of breath is not significant but with hypoxia hypotension or tachycardia. She is noted to have hemoglobin today 7.9 hematocrit 23.6 previously 8.7 and 25.8. She reports that she has had blood work done as an outpatient was previously 7.5. Patient received 1 unit of packed red blood cells. She is hemodynamically stable. She ambulated without any significant difficulty. Sounds as though she has ability to follow-up with her PCP and have repeat blood work. She has no rectal bleeding unclear exactly why she is anemic she has been anemic previously. Does not need admission for further evaluation Discharge Plan Departure Patient Disposition: Home Clinical Impression: Anemia Instructions: Anemia Activity Restrictions/Additional Instructions: *You have been diagnosed with anemia *What to do: At this time you need evaluation for your anemia such as colonoscopy and other causes. Please have your blood level rechecked this week by your primary care provider *Continue to take medications as directed *Follow up with your primary care provider in 2-3 days or call [phone] *Return to ER if you should have increasing shortness of breath bloody stools chest pain or any new, worsening or concerning symptoms Prescriptions: No Action epinephrine 0.3 MG/0.3 ML auto-injector 0.3 mg IM X1 Qty: 1 1RF leflunomide [Arava] 20 mg tablet 20 mg PO DAILY cyclobenzaprine 10 mg tablet 10 - 20 mg PO BEDTIME lovastatin 10 mg tablet 20 mg PO DAILY tramadol 50 mg tablet 50 mg PO TID Premarin 0.625 mg tablet 0.625 mg PO Q2W gabapentin 100 mg capsule 100 mg PO TID diphenhydramine HCl [Benadryl Allergy] 25 MG tablet 25 mg PO BEDTIME folic acid 1 MG tablet 1 mg PO DAILY benzonatate 200 mg capsule 200 mg PO BID PRN (Reason: cough) Qty: 30 0RF benzonatate 200 mg capsule 200 mg PO TID PRN (Reason: cough) Qty: 20 0RF amlodipine [Norvasc] 5 mg Tablet 5 mg PO DAILY rabeprazole [AcipHex] 20 mg Tablet,Delayed Release (Dr/Ec) 20 mg PO DAILY clopidogrel 75 mg Tablet 75 mg DAILY fexofenadine 180 mg Tablet 180 mg PO DAILY Xanax 0.5 mg PRN PRN (Reason: Anxiety) losartan 25 mg Tablet 25 mg PO DAILY Referrals: Mckenzie Gomez ARNP [Primary Care Provider] - Stand Alone Forms: Patient Portal/API
[2023-03-05 12:57] LABS: Prothrombin Time 11.2 SECONDS (9.4-12.5)
[2023-03-05 13:00] LABS: PTT Partial Thromboplastin Tim 30 SECONDS (25.1-36.5)
[2023-03-05 13:03] LABS: Alanine Aminotransferase 16 IU/L (<35); Albumin 3.4 g/dL (3.5-5.0); Albumin Globulin Ratio 0.8 (1.0-2.8); Alkaline Phosphatase 72 U/L (38-126); Aspartate Aminotransferase 28 IU/L (14-36); BUN Creatinine Ratio 17.6 (6-22); Bilirubin Total 0.5 mg/dL (0.2-1.3); Blood Urea Nitrogen 34 mg/dL (7-17); Calcium 8.9 mg/dL (8.4-10.2); Carbon Dioxide 19 mmol/L (22-32); Chloride 112 mmol/L (98-107); Creatine Kinase 77 U/L (30-135); Estimated Glomerular Filt Rate 26 mL/min (>60); Globulin 4.2 g/dL (1.7-4.1); Glucose 101 mg/dL (80-110); HEMOLYSIS < 15 (0-50); Lipase 45 U/L (23-300); Magnesium 1.8 mg/dL (1.6-2.3); Sodium 139 mmol/L (137-145); Total Protein 7.6 g/dL (6.3-8.2)
[2023-03-05 13:04] LABS: Add Manual Diff / Slide Review NO; Basophils Absolute Auto 100 /uL (0-100); Basophils Percent Auto 1.7 % (0-2); Eosinophils Absolute Auto 400 /uL (0-450); Eosinophils Percent Auto 5.2 % (2-4); Hematocrit 23.6 % (36-46); Hemoglobin 7.9 g/dL (12.0-16.0); Lymphocytes Absolute Auto 2600 /uL (1100-4500); Lymphocytes Percent Auto 30.2 % (25-40); Mean Corpuscular HGB Conc 33.5 % (30-36); Mean Corpuscular Hemoglobin 30.6 PG (26-34); Mean Corpuscular Volume 91.6 fL (80-100); Monocytes Absolute Auto 1300 /uL (0-900); Monocytes Percent Auto 15.3 % (3-14); Neutrophils Absolute Auto 4100 /uL (1500-7000); Neutrophils Percent Auto 47.6 % (50-75); Platelet Count 266 X10^3/uL (150-400); Red Blood Cell Count 2.58 X10^6/uL (4.0-5.2); White Blood Cell Count 8.6 X10^3/uL (4.5-11.0)
[2023-03-05 13:15] LABS: Troponin I < 0.012 ng/mL (0.01-0.034)
== END 2023-03-05 16:29 | disposition home or self-care (01) ==
PROVIDERS: Emergency Provider Emergency Medicine; PCP Nurse Practitioner Family
DX: D64.9 Anemia, unspecified (principal); R07.9 Chest pain, unspecified
CPT/HCPCS: 36415; 36430; 71045; 80053; 82550; 83690; 83735; 84484; 85025; 85610; 85730; 86850; 86900; 86901; 93005; 99284; P9016

== ENCOUNTER 2023-08-01 13:39 | Emergency (ER) | payer MEDICARE, OTHER, SELFPAY ==
[2023-08-01 14:01] VITALS: BP 162/70; PULSE 76; RESP 16; TEMP 36.9; O2SAT 98; BMI 19.8
--- NOTE | 2023-08-01 14:08 | DI.CT.S_ITS ---
PROCEDURE: CT CERVICAL SPINE WO CON INDICATIONS: Fall on thinners hit face TECHNIQUE: Noncontrast 3 mm thick sections acquired from the skull base to the T4 level. Sagittal and coronal reformats were then constructed. For radiation dose reduction, the following was used: automated exposure control, adjustment of mA and/or kV according to patient size. COMPARISON: None. FINDINGS: Image quality: Excellent. Bones: No acute fracture or dislocation. Severe degenerative changes are present in the mid cervical spine including intervertebral disc space narrowing, endplate sclerosis and osteophytosis at C5-6 and C6-7. Focal kyphosis is centered at C4. There is trace retrolisthesis at C2-3, C3-4, and C4-5. Anterolisthesis is present at C7-T1. Soft tissues: Prevertebral soft tissues are normal in thickness. No paravertebral hematomas. No apical pneumothoraces. IMPRESSION: No displaced fracture or traumatic subluxation. Degenerative change and spondylolisthesis. Dictated by: Diana Langley M.D. on 08/01/2023 at 15:18 Approved by: Diana Langley M.D. on 08/01/2023 at 15:24
--- NOTE | 2023-08-01 14:08 | DI.CT.S_ITS ---
PROCEDURE: CT FACIAL BONES WO CON INDICATIONS: Fall on thinners hit face TECHNIQUE: Noncontrast 2.5 mm thick axial images acquired from the mandible through the frontal sinuses, with coronal and sagittal reformatting. For radiation dose reduction, the following was used: automated exposure control, adjustment of mA and/or kV according to patient size. COMPARISON: None. FINDINGS: Image quality: Excellent. Bones and teeth: Orbital bell are intact. Sinus bell show no fracture or deformity. Nasal bones and septum are intact. Visualized portions of the mandible demonstrate no fractures or subluxation. Zygomatic arches are intact. Pterygoid plates are intact. Visualized portions of the skull base and auditory canals are intact. Sinuses: There is complete opacification of the maxillary sinuses, with prominent opacification of the left ethmoid air cells. There is at least moderate mucosal thickening within the right math Stewart air cells. There is near complete opacification of the left frontal sinus. Mild to moderate mucosal thickening can be seen within the inferior right frontal sinus. Minimal mucosal thickening can be seen involving the anterior sphenoid sinuses. Soft tissues: Mild soft tissue swelling can be seen involving the left cheek. Vascular: Visualized vascular structures appear normal in the absence of contrast. Bony vascular foramina and canals are intact. IMPRESSION: No displaced facial bone fracture. Extensive paranasal sinus disease. Mild soft tissue swelling of the left cheek. Dictated by: Miguel A Carmona M.D. on 08/01/2023 at 13:54 Approved by: Miguel A Carmona M.D. on 08/01/2023 at 13:57
--- NOTE | 2023-08-01 14:08 | DI.CT.S_ITS ---
PROCEDURE: CT HEAD/BRAIN WO CON INDICATIONS: Fall on thinners hit face TECHNIQUE: Noncontrast 4.5 mm thick angled axial sections acquired from the foramen magnum to the vertex, with coronal and sagittal reformats. For radiation dose reduction, the following was used: automated exposure control, adjustment of mA and/or kV according to patient size. COMPARISON: [facility], CT, CT CERVICAL SPINE WO CON, 08/01/2023, 14:32. [facility], CT, CT FACIAL BONES WO CON, 08/01/2023, 14:32. FINDINGS: Image quality: Diagnostic. CSF spaces: Basal cisterns are patent. No extra-axial fluid collections. The ventricles are symmetric in size and shape. Brain: No intracranial bleeds or masses. There is cerebral volume loss for age, with resultant ventricular and sulcal prominence. There are periventricular and deep white matter chronic small vessel ischemic changes. There is intracranial internal carotid artery atherosclerosis. Skull and face: Calvarium and visualized facial bones appear intact, without suspicious lesions. Sinuses: Extensive paranasal sinus disease is seen. IMPRESSION: No acute intracranial hemorrhage is seen. No acute intracranial pathology. Extensive paranasal sinus disease can be seen. Dictated by: Miguel A Carmona M.D. on 08/01/2023 at 13:57 Approved by: Miguel A Carmona M.D. on 08/01/2023 at 13:57
[2023-08-01 17:56] VITALS: O2SAT 98
[2023-08-01 17:57] VITALS: BP 201/85; PULSE 86; O2SAT 99
[2023-08-01 18:00] VITALS: BP 192/84; PULSE 85; O2SAT 98
--- NOTE | 2023-08-01 18:14 | DI.RAD.S_ITS ---
PROCEDURE: XR CHEST 2V INDICATIONS: cough, fall TECHNIQUE: 2 views of the chest were acquired. COMPARISON: [facility], , XR CHEST 1V, 03/05/2023, 12:42. [facility], CR, XR CHEST 1V, 01/27/2023, 14:47. FINDINGS: Surgical changes and devices: Left shoulder arthroplasty and lumbar spine hardware are partially visualized. Lungs and pleura: Lungs are clear. No pleural effusions or pneumothorax. Mediastinum: Mediastinal contours are normal. Heart size is normal. Bones and chest wall: No suspicious bony abnormalities. Soft tissues appear unremarkable. IMPRESSION: No acute cardiopulmonary abnormality is seen. Dictated by: Fuad Arnett M.D. on 08/01/2023 at 18:26 Approved by: Fuad Arnett M.D. on 08/01/2023 at 18:26
[2023-08-01 18:26] VITALS: BP 191/85; PULSE 87; O2SAT 97
[2023-08-01 18:30] VITALS: BP 203/85; PULSE 78; O2SAT 100
--- NOTE | 2023-08-01 20:19 | ED.HEATRA ---
HPI - Head Injury General Chief complaint: Head Injury Stated complaint: Chronic cough Time Seen by Provider: 08/01/23 18:14 Source: patient Mode of arrival: Ambulatory History of Present Illness HPI Narrative: 82-year-old female with history of coronary artery disease on Plavix, hypertension, dyslipidemia, chronic allergies, chronic kidney disease presents with complaint of fall yesterday. Patient states she tripped going out her door fell and hit her face. She is bruising around her eye. She states no loss of consciousness. She denies any headache but states her face hurts. Denies any neck pain denies any back pain. No chest pain or shortness of breath. No nausea or vomiting no other GI or urinary symptoms. She also notes she has had a cough for the past 2 months. She states productive yellow and tenacious. She states she got a little bit hoarse in the past 2 weeks. She states it is never gone away. She will often cough for 20 or 30 minutes at a time. She does not know if she is having any postnasal drip. She states no fevers recently. She states she has not had any improvement with [id number] medications. She has been seen by her primary care and has been taking Robitussin and using an intranasal spray. She states she does have multiple allergies to medications including some antibiotics. Related Data Home Medications Medication Instructions Recorded Confirmed conjugated estrogens 0.625 mg 0.625 mg PO Q2W 07/10/18 08/01/20 tablet cyclobenzaprine 10 mg tablet 10 - 20 mg PO BEDTIME 07/10/18 08/01/20 diphenhydramine HCl 25 mg tablet 25 mg PO BEDTIME 07/10/18 08/01/20 (Benadryl Allergy) folic acid 1 mg tablet 1 mg PO DAILY 07/10/18 08/01/20 gabapentin 100 mg capsule 100 mg PO TID 07/10/18 08/01/20 leflunomide 20 mg tablet 20 mg PO DAILY 07/10/18 08/01/20 lovastatin 10 mg tablet 20 mg PO DAILY 07/10/18 08/01/20 tramadol 50 mg tablet 50 mg PO TID 07/10/18 08/01/20 amlodipine 5 mg tablet (Norvasc) 5 mg PO DAILY 07/30/19 08/01/20 Xanax 0.5 mg PRN PRN Anxiety 04/28/20 08/01/20 clopidogrel 75 mg tablet 75 mg DAILY 04/28/20 08/01/20 fexofenadine 180 mg tablet 180 mg PO DAILY 04/28/20 08/01/20 rabeprazole 20 mg tablet,delayed 20 mg PO DAILY 04/28/20 08/01/20 release (AcipHex) losartan 25 mg tablet 25 mg PO DAILY 08/01/20 08/01/20 Previous Rx's Medication Instructions Recorded epinephrine 0.3 mg/0.3 mL 0.3 mg (0.3 mL) IM X1 ##1 02/29/16 injection, auto-injector benzonatate 200 mg capsule 200 mg PO BID PRN cough #30 caps 01/27/23 benzonatate 200 mg capsule 200 mg PO TID PRN cough #20 caps 01/27/23 amoxicillin 875 mg-potassium 1 tab PO BID #20 tabs 08/01/23 clavulanate 125 mg tablet Allergies Allergy/AdvReac Type Severity Reaction Status Date / Time ciprofloxacin [CIPROFLOXACIN] Allergy Unknown Verified 08/01/23 14:06 doxycycline [DOXYCYCLINE] Allergy Unknown Verified 08/01/23 14:06 erythromycin base Allergy Unknown Verified 08/01/23 14:06 [ERYTHROMYCIN BASE] hydrocodone [From VICODIN] Allergy Unknown Verified 08/01/23 14:06 penicillin V [From PEN-VEE K] Allergy Unknown Verified 08/01/23 14:06 Review of Systems Review of Systems ROS Unobtainable: All systems reviewed & are unremarkable except as noted in HPI and below Patient History Medical History (Updated 08/01/23 @ 20:33 by Cat Duran DO) Rheumatoid arthritis Macrocytic anemia Anemia Acute dehydration Orthostatic hypotension Surgical History History of cataract removal with insertion of prosthetic lens Status post hysterectomy Status post hemorrhoidectomy Status post appendectomy Family History Brother Cancer Diabetes mellitus Heart disease Hypertension Hyperlipidemia Brother Cancer Diabetes mellitus Heart disease Hypertension Hyperlipidemia Sister Age: 94 Heart disease Hypertension Hyperlipidemia Social History Smoking Status: Never smoker Smoking Status: Never smoker alcohol intake frequency: holidays/special occasions only Substance Use Type: marijuana Exam Narrative Exam Narrative: GEN: C-Patient appears in mild distress. HEAD: No evidence of trauma other than below, no raccoon/Ramirez sign. NECK: Nontender, painless range of motion, trachea midline [Negative/positive] Nexus criteria, midline line tenderness, distracting injury, altered mental status, neuro deficit, recent EtOH. EYES: PERRLA, EOMI, no nystagmus, ENT: Patient has some left periorbital ecchymosis and slight swelling., trachea is midline, TM's are normal no hemotypanum, Nares are clear, no septal hematoma, no dental or oral injury, airway is normal and with normal occlusion, bony tenderness of the left zygomatic arch, patient is slightly hoarse with mild cough. RESP: Chest is nontender and has symmetric movement, no ecchymosis, breath sounds are normal no crackles, wheezes or rales, no tachypnea accessory muscle use CVS: Heart sounds are normal, no murmur noted, No JVD. ABG/GI: Nontender, soft, normal bowel sounds, no distention, no organomegaly, pelvic rock is negative NEURO: Oriented AOx3, neuro is grossly intact, sensation and motor is normal all 4 extremities moving, cranial nerves II through XII are intact, GCS is 15 PSYCH: Normal mood and affect SKIN: Small abrasion left face adjacent to the periorbital area, warm and dry, no crepitus and without decubitus BACK: No CVA tenderness, no vertebral tenderness, no step-off's, no crepitus EXT: Atraumatic, hips are nontender, no pedal edema, normal color and temperature, normal range of motion of extremities with normal tendon exam, 2+ pulses in all four extremities Initial Vital Signs Initial Vital Signs: Vital Signs Temperature 98.5 F 08/01/23 14:01 Pulse Rate 76 08/01/23 14:01 Respiratory Rate 16 08/01/23 14:01 Blood Pressure 162/70 H 08/01/23 14:01 Pulse Oximetry 98 08/01/23 14:01 Oxygen Delivery Method Room Air 08/01/23 14:01 Course Orders Ordered: ED Orders 08/01/23 14:08 CT cervical spine wo con Stat CT facial bones wo con Stat CT head/brain wo con Stat 08/01/23 18:14 Chest [XR chest 2V] Stat Vital Signs Vital signs: Vital Signs - 8 hr 08/01/23 14:01 08/01/23 17:56 08/01/23 17:57 Temperature 98.5 F Pulse Rate 76 86 Respiratory Rate 16 Blood Pressure 162/70 H Pulse Oximetry 98 98 99 Oxygen Delivery Method Room Air 08/01/23 17:57 08/01/23 18:00 08/01/23 18:00 Temperature Pulse Rate 85 Respiratory Rate Blood Pressure 201/85 H 192/84 H Pulse Oximetry 98 Oxygen Delivery Method 08/01/23 18:26 08/01/23 18:26 08/01/23 18:30 Temperature Pulse Rate 87 78 Respiratory Rate Blood Pressure 191/85 H Pulse Oximetry 97 100 Oxygen Delivery Method 08/01/23 18:30 Temperature Pulse Rate Respiratory Rate Blood Pressure 203/85 H Pulse Oximetry Oxygen Delivery Method MDM - Head Injury MDM Narrative Medical decision making narrative: 82-year-old female on Plavix with mechanical ground level fall yesterday. Imaging does not show any bleed or fracture. She does have extensive paranasal sinus disease. She has had a cough for about 2 months with productive yellow sputum. Chest x-ray was negative for any sign of infection. She is slightly hoarse in the last week but not throughout the past 2 months. Discussed with patient she has been trying other remedies with intranasal sprays. We will cover with an oral antibiotic. Patient thinks that she can take amoxicillin. Head shows extensive paraspinal disease. Cervical spine CT shows no acute fracture or traumatic subluxation degenerative changes and spondylolisthesis. Facial bone CT shows no displaced facial bone fracture extensive paraspinal sinus disease mild soft tissue swelling of left cheek. Chest x-ray shows no acute change. Discharge Plan Departure Patient Disposition: Home Clinical Impression: Periorbital ecchymosis of left eye, Sinusitis Instructions: DI for Sinusitis, DI for Closed Head Injury Activity Restrictions/Additional Instructions: Follow up with your physician for recheck, your CT did show sinusitis in several portions of your sinuses on your CT scans. Take antibiotics until completed. Prescription sent to [facility] pharmacy in [place]. Please return for fevers, severe headaches, new neck or back pain, new numbness tingling or weakness or difficulty with movement, persistent vomiting, new chest pain or shortness of breath or other new or concerning changes. Prescriptions: New amoxicillin-pot clavulanate 875-125 mg tablet 1 tab PO BID Qty: 20 0RF No Action epinephrine 0.3 MG/0.3 ML auto-injector 0.3 mg IM X1 Qty: 1 1RF leflunomide [Arava] 20 mg tablet 20 mg PO DAILY cyclobenzaprine 10 mg tablet 10 - 20 mg PO BEDTIME lovastatin 10 mg tablet 20 mg PO DAILY tramadol 50 mg tablet 50 mg PO TID Premarin 0.625 mg tablet 0.625 mg PO Q2W gabapentin 100 mg capsule 100 mg PO TID diphenhydramine HCl [Benadryl Allergy] 25 MG tablet 25 mg PO BEDTIME folic acid 1 MG tablet 1 mg PO DAILY benzonatate 200 mg capsule 200 mg PO BID PRN (Reason: cough) Qty: 30 0RF benzonatate 200 mg capsule 200 mg PO TID PRN (Reason: cough) Qty: 20 0RF amlodipine [Norvasc] 5 mg Tablet 5 mg PO DAILY rabeprazole [AcipHex] 20 mg Tablet,Delayed Release (Dr/Ec) 20 mg PO DAILY clopidogrel 75 mg Tablet 75 mg DAILY fexofenadine 180 mg Tablet 180 mg PO DAILY Xanax 0.5 mg PRN PRN (Reason: Anxiety) losartan 25 mg Tablet 25 mg PO DAILY Referrals: Mckenzie Gomez ARNP [Primary Care Provider] - Stand Alone Forms: Patient Portal/API
== END 2023-08-01 20:39 | disposition home or self-care (01) ==
PROVIDERS: Emergency Provider Emergency Medicine; PCP Nurse Practitioner Family
DX: S00.12XA Contusion of left eyelid and periocular area, initial encounter (principal); J32.9 Chronic sinusitis, unspecified; W01.0XXA Fall on same level from slipping, tripping and stumbling without subsequent striking against object, initial encounter; Z79.899 Other long term (current) drug therapy
CPT/HCPCS: 70450; 70486; 71046; 72125; 99281; 99284

== ENCOUNTER 2023-08-16 08:22 | Inpatient (IN) | payer MEDICARE, OTHER, SELFPAY ==
[2023-08-16] VITALS (30 sets, daily range): BP systolic 188–222; BP diastolic 81–100; PULSE 81–93; RESP 13–28; TEMP 36.3–36.5; O2SAT 96–98; BMI 21.7; BMI 21.3
--- NOTE | 2023-08-16 08:37 | EKG_ITS ---
[address] [address] Test Date: 2023-08-16 Pat Name: Kathia South Department: Room: Gender: Female [employer] Supervisor: MARYSOL : 1940 Requested By: Order Number: [id number] Reading MD: Raul Dorsey Measurements Intervals [place] Rate: 84 P: 45 [place]: 174 QRS: 30 QRSD: 70 T: 42 QT: 376 QTc: 444 Interpretive Statements Normal sinus rhythm Anterior infarct , age undetermined Electronically Signed On 08-20-2023 8:59:56 PDT by Raul Dorsey
--- NOTE | 2023-08-16 08:40 | DI.RAD.S_ITS ---
PROCEDURE: XR CHEST 1V INDICATIONS: chest pain/sob TECHNIQUE: One view of the chest was acquired. COMPARISON: [facility], CR, XR CHEST 2V, 08/01/2023, 18:15. [facility], CR, XR CHEST 1V, 03/05/2023, 12:42. FINDINGS: Surgical changes and devices: Left shoulder arthroplasty. Lungs and pleura: Interstitial opacities and peribronchial cuffing. Mediastinum: Mediastinal contours appear normal. Heart size is borderline enlarged, with annular calcification of the mitral valve. Bones and chest wall: No suspicious bony lesions. Overlying soft tissues appear unremarkable. Severe right shoulder osteoarthritis, with superior subluxation of the humerus likely due to prior rotator cuff injury. IMPRESSION: Suspected mild pulmonary edema versus fluid overload. Dictated by: Eulogio Alicea M.D. on 08/16/2023 at 9:21 Approved by: Eulogio Alicea M.D. on 08/16/2023 at 9:22
--- NOTE | 2023-08-16 08:56 | PC.NURSE ---
2+ pedal pulses; pt reports sinusitis; pain to palpation substernal/left side of chest; pt reports CP ongoing for 44 months but got worse around 10pm last night
--- NOTE | 2023-08-16 08:58 | PC.NURSE ---
Pt reports taking her BP medicine at night
--- NOTE | 2023-08-16 09:00 | ED_ITS ---
HPI - Chest Pain General Chief Complaint: Chest Pain Stated Complaint: Difficulty breathing with cough for months Time Seen by Provider: 08/16/23 08:40 Source: patient, EMS, RN notes reviewed and old records reviewed Mode of arrival: EMS Limitations: no limitations History of Present Illness HPI narrative: 82-year-old female with history of rheumatoid arthritis, coronary artery disease, hypertension, dyslipidemia, chronic allergies, chronic kidney disease presents with complaint of shortness of breath. Patient was recently Plavix as well as amlodipine was stopped by her physician as they told her that it was not required. She does have a history of chronic anemia has had blood transfusion she states she has had colonoscopies in the past couple of years and seen a bookie and they never found out exactly why. She presents today with complaint of shortness of breath states it has been several weeks worsened last night and into today. She describes some chest discomfort substernal. Worse with cough. She has had a chronic cough for months. She states no fevers or chills. She occasionally will have nausea or vomiting she describes 5 episodes in the past 3 months. She denies any lightheadedness or passing out, nonproductive sputum. No swelling of extremities. She states no other new changes to her medications she has not had her morning medications including her carvedilol. Patient states has had back surgery a year ago in August has had a prior shoulder surgery. She has never had cardiac stents. She states has a long list of allergies to medications. Does not use tobacco, no alcohol or recreational drugs. Her primary care is Mckenzie Gomez. Related Data Home Medications Medication Instructions Recorded Confirmed cyclobenzaprine 10 mg tablet 10 - 20 mg PO BEDTIME 07/10/18 08/16/23 diphenhydramine HCl 25 mg tablet 25 mg PO BEDTIME 07/10/18 08/16/23 (Benadryl Allergy) folic acid 1 mg tablet 1 mg PO DAILY 07/10/18 08/16/23 gabapentin 100 mg capsule 100 mg PO TID 07/10/18 08/16/23 leflunomide 20 mg tablet 20 mg PO DAILY 07/10/18 08/16/23 lovastatin 10 mg tablet 20 mg PO DAILY 07/10/18 08/16/23 tramadol 50 mg tablet 50 mg PO Q6H PRN Pain (Scale Score 07/10/18 08/16/23 4-6) amlodipine 5 mg tablet (Norvasc) 5 mg PO DAILY 07/30/19 08/16/23 Xanax 0.5 mg PO PRN PRN Anxiety 04/28/20 08/16/23 clopidogrel 75 mg tablet 75 mg DAILY 04/28/20 08/16/23 fexofenadine 180 mg tablet 180 mg PO DAILY 04/28/20 08/16/23 losartan 25 mg tablet 50 mg PO DAILY 08/01/20 08/16/23 alprazolam 0.5 mg tablet 0.5 mg PO DAILY PRN Anxiety 08/16/23 08/16/23 carvedilol 25 mg tablet 25 mg PO BID 08/16/23 08/16/23 conjugated estrogens 0.625 mg 0.625 mg PO DAILY 08/16/23 08/16/23 tablet (Premarin) halobetasol propionate 0.05 % 1 applic topical DAILY 08/16/23 08/16/23 topical cream lidocaine 5 % topical cream 1 applic topical BID PRN Pain 08/16/23 08/16/23 (Scale Score 1-3) lorazepam 1 mg tablet 1 mg PO DAILY PRN Anxiety 08/16/23 08/16/23 pantoprazole 40 mg tablet,delayed 40 mg PO DAILY 08/16/23 08/16/23 release sertraline 25 mg tablet 25 mg PO DAILY 08/16/23 08/16/23 Previous Rx's Medication Instructions Recorded epinephrine 0.3 mg/0.3 mL 0.3 mg (0.3 mL) IM X1 ##1 02/29/16 injection, auto-injector Allergies Allergy/AdvReac Type Severity Reaction Status Date / Time ciprofloxacin [CIPROFLOXACIN] Allergy Severe Anaphylaxis Verified 08/16/23 10:25 doxycycline [DOXYCYCLINE] Allergy Severe Anaphylaxis Verified 08/16/23 10:25 hydrocodone [From VICODIN] Allergy Severe Anaphylaxis Verified 08/16/23 10:25 penicillin V [From PEN-VEE K] Allergy Severe Anaphylaxis Verified 08/16/23 10:25 shrimp Allergy Severe Anaphylaxis Verified 08/16/23 10:25 erythromycin base Allergy Unknown Verified 08/01/23 14:06 [ERYTHROMYCIN BASE] iodine Allergy Unknown ITCHING Verified 08/16/23 09:47 Review of Systems Review of Systems ROS Unobtainable: All systems reviewed & are unremarkable except as noted in HPI and below Patient History Medical History (Updated 08/16/23 @ 14:42 by Anton Vera MD) Coronary artery disease Do not resuscitate CKD stage 3b, GFR 30-44 ml/min Mixed hyperlipidemia Essential hypertension Acute systolic CHF (congestive heart failure) Rheumatoid arthritis Macrocytic anemia Anemia Acute dehydration Orthostatic hypotension Surgical History History of cataract removal with insertion of prosthetic lens Status post hysterectomy Status post hemorrhoidectomy Status post appendectomy Family History Brother Cancer Diabetes mellitus Heart disease Hypertension Hyperlipidemia Brother Cancer Diabetes mellitus Heart disease Hypertension Hyperlipidemia Sister Age: 94 Heart disease Hypertension Hyperlipidemia Social History household members: spouse Smoking Status: Never smoker alcohol intake: current Smoking Status: Never smoker alcohol intake frequency: holidays/special occasions only Substance Use Type: marijuana Exam Narrative Exam Narrative: GEN: Thin elderly female, alert and oriented x 3, patient appears to be in mild distress. HEENT: Atraumatic, pupils are equal round reactive to light, extraocular movements are intact, nares are clear, there is no conjunctival pallor. Throat is clear without any exudates, erythema, tonsillar enlargement or uvular deviation, patient is slightly hoarse. HEART: Regular rate and rhythm without murmur, clicks, rubs. No carotid bruits, pulses are equal in upper and lower extremities LUNGS:Lungs clear to auscultation, no wheezes, chest moves symmetrically, mild crackles bilateral bases, no accessory muscle use ABD:bowel sounds normal, soft, non-tender, no guarding, rebound, rigidity, no masses noted, no hepatosplenomegaly :No CVA tenderness MSCL: Non-tender, no muscle atrophy, muscles strength 5/5 upper and lower extremities, full range of motion, normal gait NEURO:CN 2-12 intact, sensation normal SKIN: No rash, erythema other skin changes noted Initial Vital Signs Initial Vital Signs: Vital Signs Pulse Rate 87 08/16/23 08:27 Blood Pressure 204/91 H 08/16/23 08:27 Pulse Oximetry 98 08/16/23 08:27 Course Orders Ordered: ED Orders 08/16/23 09:32 Respiratory Panel (Film Array) Stat 08/16/23 09:35 CT angio chest PE protocol Stat 08/16/23 10:58 EC echo doppler complete Stat Acetaminophen (Acetaminophen 325 Mg Tablet) 650 mg PO Q6H PRN PRN Reason: Fever/Mild Pain (1-3) Alprazolam (Alprazolam 0.25 Mg Tablet) 0.5 mg PO DAILY PRN PRN Reason: Anxiety Amlodipine Besylate (Amlodipine 5 Mg Tablet) 5 mg PO DAILY [facility] Atorvastatin Calcium (Atorvastatin 20 Mg Tablet) 10 mg PO BEDTIME BECCA Carvedilol (Carvedilol 12.5 Mg Tablet) 25 mg PO BID [facility] Clopidogrel Bisulfate (Clopidogrel 75 Mg Tablet) 75 mg PO DAILY [facility] Diphenhydramine HCl (Diphenhydramine 25 Mg Tablet) 25 mg PO BEDTIME BECCA Enoxaparin Sodium (Enoxaparin 30 Mg/0.3 Ml Syringe) 30 mg SUBCUT DAILY [facility] Last Admin: 08/16/23 14:19 Dose: 30 mg Documented By: FATUMA Folic Acid (Folic Acid 1 Mg Tablet) 1 mg PO DAILY [facility] Furosemide (Furosemide 40 Mg/4 Ml Vial) 40 mg IV Q8H [facility] Last Admin: 08/16/23 14:19 Dose: 40 mg Documented By: FATUMA Gabapentin (Gabapentin 100 Mg Capsule) 100 mg PO TID [facility] Last Admin: 08/16/23 15:22 Dose: 100 mg Documented By: DELMYK Lidocaine (Lidocaine 5% Oint 35 Gm) 1 applic TOP BID PRN PRN Reason: Pain (Scale Score 1-3) Loratadine (Loratadine 10 Mg Tablet) 10 mg PO DAILY [facility] Lorazepam (Lorazepam 1 Mg Tablet) 1 mg PO DAILY PRN PRN Reason: Anxiety Losartan Potassium (Losartan 25 Mg Tablet) 50 mg PO DAILY [facility] Naloxone HCl (Naloxone 0.4 Mg/Ml Vial) 0.2 mg IV Q2MIN PRN PRN Reason: Opiate Reversal Conjugated Estrogens [Premarin] 0.625 Mg Tablet 0.625 mg PO DAILY [facility] Leflunomide 20 Mg (Tablet) 20 mg PO DAILY [facility] Pantoprazole Sodium (Pantoprazole Dr 40 Mg Tablet) 40 mg PO DAILY [facility] Sertraline HCl (Sertraline 50 Mg Tablet) 25 mg PO BEDTIME [facility] Tramadol HCl (Tramadol 50 Mg Tablet) 50 mg PO Q6H PRN PRN Reason: Pain (Scale Score 4-6) Discontinued Medications Carvedilol (Carvedilol 12.5 Mg Tablet) 25 mg PO NOW ONE Stop: 08/16/23 09:14 Last Admin: 08/16/23 09:29 Dose: 25 mg Documented By: JAMES Diphenhydramine HCl (Diphenhydramine 50 Mg/Ml Vial) 50 mg IV NOW ONE Stop: 08/16/23 09:44 Last Admin: 08/16/23 09:48 Dose: 50 mg Documented By: JAMES Furosemide (Furosemide 40 Mg/4 Ml Vial) 40 mg IV NOW ONE Stop: 08/16/23 09:36 Last Admin: 08/16/23 09:43 Dose: 40 mg Documented By: JAMES Methylprednisolone (Methylprednisolone 125 Mg/2 Ml Vial) 125 mg IV NOW ONE Stop: 08/16/23 09:44 Last Admin: 08/16/23 09:48 Dose: 125 mg Documented By: JAMES Nitroglycerin (Nitroglycerin 0.4 Mg Sl Tab) 0.4 mg SL NOW ONE Stop: 08/16/23 09:14 Last Admin: 08/16/23 09:28 Dose: 0.4 mg Documented By: JAMES Vital Signs Vital signs: Vital Signs - 8 hr 08/16/23 10:32 08/16/23 10:32 08/16/23 10:35 Pulse Rate 87 85 Respiratory Rate 21 17 Blood Pressure 209/95 H Pulse Oximetry 96 97 08/16/23 10:35 08/16/23 10:40 08/16/23 10:40 Pulse Rate 88 Respiratory Rate 20 Blood Pressure 216/98 H 206/94 H Pulse Oximetry 97 08/16/23 10:45 08/16/23 10:45 08/16/23 10:50 Pulse Rate 86 83 Respiratory Rate 21 15 Blood Pressure 205/97 H Pulse Oximetry 97 97 08/16/23 10:50 08/16/23 10:55 08/16/23 10:55 Pulse Rate 82 Respiratory Rate 22 Blood Pressure 203/94 H 202/94 H Pulse Oximetry 96 08/16/23 11:00 08/16/23 11:00 Pulse Rate 82 Respiratory Rate 19 Blood Pressure 207/98 H Pulse Oximetry 97 MDM - Chest Pain Lab Data 08/16/23 08:47 08/16/23 08:47 Labs: Lab Results 08/16/23 08/16/23 Range/Units 08:47 09:32 WBC 10.4 (4.5-11.0) X10^3/uL RBC 2.69 L (4.0-5.2) X10^6/uL Hgb 8.6 L (12.0-16.0) g/dL Hct 24.9 L (36-46) % MCV 92.6 (80-100) fL MCH 31.8 (26-34) PG MCHC 34.4 (30-36) % RDW 16.1 H (11.6-14.8) % Plt Count 309 (150-400) X10^3/uL Neut % (Auto) Not Reportable Lymph % (Auto) Not Reportable Foster % (Auto) Not Reportable Eos % (Auto) Not Reportable Baso % (Auto) Not Reportable Lymph # (Auto) Not Reportable Foster # (Auto) Not Reportable Baso # (Auto) Not Reportable Total Counted 100 Seg Neutrophils % 68.0 (38-70) % Band Neutrophils % 3.0 (3-7) % Lymphocytes % (Manual) 9.0 L (25-45) % Monocytes % (Manual) 12.0 H (2-11) % Eosinophils % (Manual) 7.0 H (2-4) % Basophils % (Manual) 1.0 (0-1) % Neutrophils # (Manual) 7384 H (5686-4115) /uL Nucleated RBCs 1 H ( - 0) #/Diff RBC Morphology Not Reportable Anisocytosis 1+ H D-Dimer 1367 H (<500) ng/ml Sodium 120 L (137-145) mmol/L Potassium 5.2 H (3.4-5.1) mmol/L Chloride 95 L (98-107) mmol/L Carbon Dioxide 17 L (22-32) mmol/L BUN 29 H (7-17) mg/dL Creatinine 1.82 H (0.52-1.04) mg/dL Estimated GFR 28 L (>60) mL/min BUN/Creatinine Ratio 15.9 (6-22) Glucose 106 (80-110) mg/dL Calcium 8.0 L (8.4-10.2) mg/dL Total Bilirubin 0.8 (0.2-1.3) mg/dL AST 60 H (14-36) IU/L ALT 42 H (<35) IU/L Alkaline Phosphatase 131 H (38-126) U/L Total Creatine Kinase 112 (30-135) U/L Troponin I < 0.012 (0.01-0.034) ng/mL NT-Pro-B Natriuret Pep 39540 H (<450) pg/mL Total Protein 7.8 (6.3-8.2) g/dL Albumin 3.5 (3.5-5.0) g/dL Globulin 4.3 H (1.7-4.1) g/dL Albumin/Globulin Ratio 0.8 L (1.0-2.8) Lipase 56 (23-300) U/L Chlamy pneumoniae PCR Not detected (Not Detect) Adenovirus (PCR) Not detected (Not Detect) B.parapertussis DNA PCR Not detected (Not Detecte) Coronavirus OC43 (PCR) Not detected (Not Detect) Coronavirus HKU1 (PCR) Not detected (Not Detect) Coronavirus 229E (PCR) Not detected (Not Detect) SARS-CoV-2 (PCR) Not detected (Not Detecte) Coronavirus NL63 (PCR) Not detected (Not Detect) Human Metapneumovir PCR Not detected (Not Detect) Influenza Type A (PCR) Not detected (Not Detect) Influenza Type B (PCR) Not detected (Not Detect) M. pneumoniae (PCR) Not detected (Not Detect) Parainfluenza 1 (PCR) Not detected (Not Detect) Parainfluenza 2 (PCR) Not detected (Not Detect) Parainfluenza 3 (PCR) Not detected (Not Detect) Parainfluenza 4 (PCR) Not detected (Not Detect) RSV (PCR) Not detected (Not Detect) Entero/Rhino (PCR) Not detected (Not Detect) Imaging Data Chest x-ray: Radiologist's Impression: Kathia South??82??F??1940 ? Allergy/Adv: ciprofloxacin, doxycycline, hydrocodone, penicillin V, shrimp, erythromycin base, iodine (More??) Close Chest CTA (Signed) Eulogio Alicea - 08/16/23 Chest X-Ray (Signed) Eulogio Alicea - 08/16/23 Chest X-Ray (Signed) Fuad Arnett - 08/01/[address] (Signed) Miguel A Carmona - 08/01/[address] (Signed) Miguel A Carmona - 08/01/[address] (Signed) Diana Langley - 08/01/23 Chest X-Ray (Signed) MartelIvonne allenlucy - 03/05/23 Chest X-Ray (Signed) KristineMiguel A eaton - 01/27/23 Ribs X-Ray (Signed) Kings,Heath - 04/26/22 Hip X-Ray (Signed) Kings,Heath - 04/26/22 Shoulder X-Ray (Signed) Kings,Heath - 04/26/22 Chest X-Ray (Signed) Pete Guevara - 04/21/22 Chest X-Ray (Signed) Randy Vicente - 04/06/21 Chest X-Ray (Signed) Robin Serrano - 04/02/21 Shoulder MRI (Signed) Lopez Crystal - 11/19/18 Barium Swallow X-Ray (Signed) Marleny Ray - 09/02/18 Soft Tissue Neck X-Ray (Signed) Diana Langley - 07/30/18 Chest X-Ray (Signed) Miguel A Carmona - 07/10/18 Telemetry Strips 07/10/18 Launch?[place] [address] XRay Report Signed Patient: Kathia South MR#: [id number] : 1940 Acct:[id number] Age/Sex: 82 / F Date of Service: 08/16/23 Loc: ED Accession Number: [id number] Procedure: XR chest 1V Ordering Provider: Cat Duran D.O. PROCEDURE: XR CHEST 1V INDICATIONS: chest pain/sob TECHNIQUE: One view of the chest was acquired. COMPARISON: [facility], CR, XR CHEST 2V, 08/01/2023, 18:15. [facility], CR, XR CHEST 1V, 03/05/2023, 12:42. FINDINGS: Surgical changes and devices: Left shoulder arthroplasty. Lungs and pleura: Interstitial opacities and peribronchial cuffing. Mediastinum: Mediastinal contours appear normal. Heart size is borderline enlarged, with annular calcification of the mitral valve. Bones and chest wall: No suspicious bony lesions. Overlying soft tissues appear unremarkable. Severe right shoulder osteoarthritis, with superior subluxation of the humerus likely due to prior rotator cuff injury. IMPRESSION: Suspected mild pulmonary edema versus fluid overload. Dictated by: Eulogio Alicea M.D. on 08/16/2023 at 9:21 Approved by: Eulogio Alicea M.D. on 08/16/2023 at 9:22 CT scan - chest: Radiologist's Impression: Kathia South??82??F??1940 ? Allergy/Adv: ciprofloxacin, doxycycline, hydrocodone, penicillin V, shrimp, erythromycin base, iodine (More??) Close Chest CTA (Signed) Eulogio Alicea - 08/16/23 Chest X-Ray (Signed) Eulogio Alicea - 08/16/23 Chest X-Ray (Signed) Fuad Arnett - 08/01/[address] (Signed) Miguel A Carmona - 08/01/[address] (Signed) Miguel A Carmona - 08/01/[address] (Signed) Diana Langley - 08/01/23 Chest X-Ray (Signed) Anila Martel - 03/05/23 Chest X-Ray (Signed) Miguel A Carmona - 01/27/23 Ribs X-Ray (Signed) Heath Ku - 04/26/22 Hip X-Ray (Signed) Heath Ku - 04/26/22 Shoulder X-Ray (Signed) Kings,Heath - 04/26/22 Chest X-Ray (Signed) Pete Guevara - 04/21/22 Chest X-Ray (Signed) Randy Vicente - 04/06/21 Chest X-Ray (Signed) Robin Serrano - 04/02/21 Shoulder MRI (Signed) Lopez Crystal - 11/19/18 Barium Swallow X-Ray (Signed) Marleny Ray - 09/02/18 Soft Tissue Neck X-Ray (Signed) Diana Langley - 07/30/18 Chest X-Ray (Signed) Miguel A Carmona - 07/10/18 Telemetry Strips 07/10/18 Launch?[address] [address] [address] Scan Report Signed Patient: Kathia South MR#: [id number] : 1940 Acct:[id number] Age/Sex: 82 / F Date of Service: 08/16/23 Loc: ED Accession Number: [id number] Procedure: CT angio chest PE protocol Ordering Provider: Cat Duran D.O. PROCEDURE: CT ANGIO CHEST PE PROTOCOL INDICATIONS: sob, chest pain, cough x 4 months, +dimer TECHNIQUE: After the administration of intravenous contrast, 2 mm thick sections acquired from the pulmonary apices to the posterior costophrenic angles. 3-dimensional maximum intensity projection (MIP) coronal and sagittal reformats were then acquired through the thorax. For radiation dose reduction, the following was used: automated exposure control, adjustment of mA and/or kV according to patient size. COMPARISON: [facility], , XR CHEST 1V, 08/16/2023, 8:54. FINDINGS: Image quality: Diagnostic. Pulmonary arteries: Pulmonary arteries are normal in size, and demonstrate no intraluminal filling defects to suggest central pulmonary embolism. Lower Neck: No enlarged lymph nodes. Thyroid: No thyroid nodules which require sonographic follow up, per consensus guidelines. Axillae: No enlarged lymph nodes. Chest Wall: Unremarkable. Bones: Severe right shoulder osteoarthritis with a large shoulder joint effusion. Lungs and Pleura: Small to moderate bilateral pleural effusions. Smooth interstitial thickening and bronchial thickening. No consolidation. Heart: Heart size is enlarged, with annular calcification of mitral valve. No pericardial effusion. Thoracic Vessels: No aortic aneurysm. Mediastinum and Talya: No enlarged lymph nodes. Esophagus: No wall thickening. No hiatal hernia. Patulous esophagus. Upper Abdomen: Reflux of contrast into the SVC. IMPRESSION: No pulmonary embolus. Moderate pulmonary edema with small to moderate pleural effusions. Reflux of contrast into the IVC, indicating elevated right heart pressures. Severe right shoulder osteoarthritis with a large right joint effusion. Dictated by: Eulogio Alicea M.D. on 08/16/2023 at 10:26 Approved by: Eulogio Alicea M.D. on 08/16/2023 at 10:32 ECG Data Attestation: I personally reviewed and interpreted this ECG as follows: Prior ECG tracings: available for review Interpretation: Sinus rhythm rate 84 FL 174 QRS is 70 QTC 444, no acute ST elevation depression noted. Patient has V1 V3 leads may have been flipped. Does appear changed in these 2 leads only from comparison of 03/05/2023. MDM Narrative Medical decision making narrative: 82-year-old female with complaint of shortness of breath, chest discomfort, chronic cough who presents with hypertension. Patient states shortness of breath and chest discomfort has been present for some time she was recently stopped on her amlodipine as well as her Plavix in the past week because she was told she did not need it anymore. Quite hypertensive, was given a dose of sublingual nitro brought her pressure down to 190 at the lowest, was also given her home a.m. carvedilol dose of 25 mg. Workup shows chronic kidney disease appears baseline compared to prior but patient is hyponatremic with a sodium of 120 potassium of 5.2, has a chloride of 95 with a CO2 of 17 and a BUN 29, patient's troponin [place] [address], bilirubin is normal at 0.8 but AST ALT are slightly elevated at 16 42 with an alk-phos of 131. CBC shows a white count of 10.4 hemoglobin is 8.6 appears fairly consistent with prior priors no significant drop, platelets 309, patient has predominance of monocytes. Slide was sent for pathology review. D-Dimer is positive even when age adjusted. Respiratory panel is negative EKG shows V1 V3 changed but suspect these are flipped. Chest x-ray heart size borderline enlarged with annular calcification of mitral valve interstitial opacities peribronchial cuffing. Patient had received nitro sublingual and Lasix 40 mg as she is quite hypertensive she had stopped her amlodipine and Plavix recently and chest x-ray and BNP are quite elevated.. Suspect there maybe some pulmonary edema component had surgery a year but has had a chronic cough with chest pain and shortness of breath for once so dimer was also added on and this is elevated. Patient had pretreatment for her CT angio with Benadryl Solu-Medrol. CT angio shows no PE, moderate pulmonary edema with small to moderate effusions reflux into the IVC indicating right heart pressures severe right shoulder osteoarthritis with large right effusion. Spoke with Dr. Vera, accepts for observation for hypertension, CHF, hyponatremia with CKD and asks that we order ECHO. This was ordered an echo was performed. Discharge Plan Departure Patient Disposition: Admitted as Observation Clinical Impression: CHF exacerbation, Hyponatremia, CKD (chronic kidney disease), Pleural effusion Admit Date/Time: 08/16/23 11:00 Admit Provider: Anton Vera V
[2023-08-16 09:01] LABS: Hematocrit 24.9 % (36-46); Hemoglobin 8.6 g/dL (12.0-16.0); Mean Corpuscular HGB Conc 34.4 % (30-36); Mean Corpuscular Hemoglobin 31.8 PG (26-34); Mean Corpuscular Volume 92.6 fL (80-100); Platelet Count 309 X10^3/uL (150-400); Red Blood Cell Count 2.69 X10^6/uL (4.0-5.2); Red Cell Distribution Width 16.1 % (11.6-14.8); White Blood Cell Count 10.4 X10^3/uL (4.5-11.0)
[2023-08-16 09:02] LABS: Add Manual Diff / Slide Review YES
[2023-08-16 09:06] LABS: Albumin 3.5 g/dL (3.5-5.0); Albumin Globulin Ratio 0.8 (1.0-2.8); Alkaline Phosphatase 131 U/L (38-126); BUN Creatinine Ratio 15.9 (6-22); Bilirubin Total 0.8 mg/dL (0.2-1.3); Blood Urea Nitrogen 29 mg/dL (7-17); Carbon Dioxide 17 mmol/L (22-32); Chloride 95 mmol/L (98-107); Creatine Kinase 112 U/L (30-135); Estimated Glomerular Filt Rate 28 mL/min (>60); Globulin 4.3 g/dL (1.7-4.1); Glucose 106 mg/dL (80-110); Lipase 56 U/L (23-300); Sodium 120 mmol/L (137-145); Total Protein 7.8 g/dL (6.3-8.2)
[2023-08-16 09:16] LABS: Anisocytosis 1+; Nucleated Red Blood Cells 1 #/Diff
[2023-08-16 09:18] LABS: Neutrophils Absolute Manual 7384 /uL (3000-5900); Total Cells Counted 100; Troponin I < 0.012 ng/mL (0.01-0.034)
[2023-08-16 09:26] LABS: D Dimer 1367 ng/ml (<500)
[2023-08-16 09:28] LABS: HEMOLYSIS 103 (0-50)
[2023-08-16] MEDS: NITROGLYCERIN 0.4 MG SL TAB SL (09:28)
[2023-08-16 09:29] LABS: Alanine Aminotransferase 42 IU/L (<35); Aspartate Aminotransferase 60 IU/L (14-36); Potassium 5.2 mmol/L (3.4-5.1)
[2023-08-16] MEDS: carvediloL 12.5 MG TABLET 25 MG PO ×2 (09:29→21:28)
--- NOTE | 2023-08-16 09:35 | DI.CT.S_ITS ---
PROCEDURE: CT ANGIO CHEST PE PROTOCOL INDICATIONS: sob, chest pain, cough x 4 months, +dimer TECHNIQUE: After the administration of intravenous contrast, 2 mm thick sections acquired from the pulmonary apices to the posterior costophrenic angles. 3-dimensional maximum intensity projection (MIP) coronal and sagittal reformats were then acquired through the thorax. For radiation dose reduction, the following was used: automated exposure control, adjustment of mA and/or kV according to patient size. COMPARISON: [facility], CR, XR CHEST 1V, 08/16/2023, 8:54. FINDINGS: Image quality: Diagnostic. Pulmonary arteries: Pulmonary arteries are normal in size, and demonstrate no intraluminal filling defects to suggest central pulmonary embolism. Lower Neck: No enlarged lymph nodes. Thyroid: No thyroid nodules which require sonographic follow up, per consensus guidelines. Axillae: No enlarged lymph nodes. Chest Wall: Unremarkable. Bones: Severe right shoulder osteoarthritis with a large shoulder joint effusion. Lungs and Pleura: Small to moderate bilateral pleural effusions. Smooth interstitial thickening and bronchial thickening. No consolidation. Heart: Heart size is enlarged, with annular calcification of mitral valve. No pericardial effusion. Thoracic Vessels: No aortic aneurysm. Mediastinum and Talya: No enlarged lymph nodes. Esophagus: No wall thickening. No hiatal hernia. Patulous esophagus. Upper Abdomen: Reflux of contrast into the SVC. IMPRESSION: No pulmonary embolus. Moderate pulmonary edema with small to moderate pleural effusions. Reflux of contrast into the IVC, indicating elevated right heart pressures. Severe right shoulder osteoarthritis with a large right joint effusion. Dictated by: Eulogio Alicea M.D. on 08/16/2023 at 10:26 Approved by: Eulogio Alicea M.D. on 08/16/2023 at 10:32
[2023-08-16 09:36] LABS: NT-proBNP (BNP-Adult 18+) 36300 pg/mL (<450)
[2023-08-16] MEDS: FUROSEMIDE 40 MG/4 ML VIAL IV ×3 (09:43→21:31)
[2023-08-16] MEDS: diphenhydrAMINE 50 MG/ML VIAL IV (09:48)
[2023-08-16] MEDS: methylPREDNISolone 125 MG/2 ML VIAL IV (09:48)
[2023-08-16 10:31] LABS: Adenovirus Not Detected (Not Detect); B. parapertussis Not Detected (Not Detecte); Bordetella pertussis Not Detected (Not Detect); Chlamydophila pneumoniae Not Detected (Not Detect); Coronavirus 229E Not Detected (Not Detect); Coronavirus HKU1 Not Detected (Not Detect); Coronavirus NL 63 Not Detected (Not Detect); Coronavirus OC43 Not Detected (Not Detect); Human Metapneumovirus Not Detected (Not Detect); Human Rhinovirus/Enterovirus Not Detected (Not Detect); Influenza A Not Detected (Not Detect); Influenza B Not Detected (Not Detect); Mycoplasma pneumoniae Not Detected (Not Detect); Parainfluenza Virus 1 Not Detected (Not Detect); Parainfluenza Virus 2 Not Detected (Not Detect); Parainfluenza Virus 3 Not Detected (Not Detect); Parainfluenza Virus 4 Not Detected (Not Detect); Respiratory Syncytial Virus Not Detected (Not Detect); SARS- CoV-2 Not Detected (Not Detecte)
--- NOTE | 2023-08-16 10:58 | DI.ECHO.S_ITS ---
[place] [facility]+ [facility] : : [address] : : [place] : : [id number] : : Phone: [phone] Echocardiogram Report + + :Name: TOMAS RAE Study Date: 08/16/2023 Height: 62 in : :Hospital ReadingLocation: Weight: 119 lb : : Gender: Female BSA: 1.5 m2 : :: 1940 Age: 82 yrs BP: 216/98 mmHg: :Reason For Study: CONGESTIVE HEART FAILURE, PULMONARY : :HYPERTENSION : :Ordering Physician: MARLA, : :SCOTT Performed By: Anali Castro : :Referring: SCOTT GUTIÉRREZ : + + Interpretation Summary Normal sinus rhythm. Normal LV size and wall thickness. There is mild global hypokinesis. Ejection fraction is 30-35 %. Worst movement is demonstrated by basal inferior lateral segment. EPSS is 1.7 cm consistent with cardiomyopathy. Severe left atrial enlargement. Otherwise normal chamber sizes. Aortic valve is a trileaflet structure characterized by moderately thickened and calcified leaflets. Moderate aortic regurgitation. Moderate mitral annular calcification with severe central mitral regurgitation. Moderate tricuspid regurgitation Estimated PA systolic pressure 75 mmHg assuming right atrial pressure 15 mmHg. Compared to prior echo performed September 17, 2022, LV is not as dynamic. EF is down from 60-65% to 30-35%. Mitral regurgitation progressed from moderate to severe. The caveat is that the quantitative parameters of mitral regurgitation were not assessed. Recommend limited dedicated echo to compute regurgitant volume and effective regurgitant orifice area via Pisa method. Elevated PA systolic pressure is newly described. Procedure: A two-dimensional transthoracic echocardiogram with color flow and Doppler was performed. The study quality was technically adequate. The study quality was technically good. Comparison is made with the echocardiogram of 09/17/2022. The heart rate ranged between 79-83 bpm during the study. Left Ventricle: The left ventricle is normal in size and wall thickness. The ejection fraction is estimated to be 30-35%. Right Ventricle: The right ventricle is normal in size and function. Atria: The left atrium is severely dilated. The right atrium is normal in size. There is no Doppler evidence for an interatrial shunt. Mitral Valve: There is mild to moderate mitral annular calcification. The mitral valve leaflets are mildly calcified. There is severe mitral regurgitation. Aortic Valve: The aortic valve is trileaflet. The aortic valve opens well. There is no aortic valve stenosis. There is moderate aortic regurgitation. Tricuspid Valve: The tricuspid valve is normal in structure and function. There is mild tricuspid regurgitation. The right ventricular systolic pressure is estimated to be at least 75 mmHg based on an estimated right atrial pressure of 15 mm Hg. Pulmonic Valve: The pulmonic valve leaflets are thin and pliable; valve motion is normal. There is mild pulmonic regurgitation. Great Vessels: The aortic root is normal size. The dimensions of the ascending aorta are normal. The IVC is dilated (diameter is greater than 2.1 cm) and it collapses less than 50% with a sniff. This suggests a high right atrial pressure of 15 mm Hg. Pericardium/ Pleura There is no pericardial effusion. There is no pleural effusion. MMode/2D Measurements & Calculations LVIDd: 4.9 cm LVOT diam: 1.9 cm LVIDs: 4.2 cm Ao root diam: 3.5 cm FS: 14.2 % asc Aorta Diam: 3.5 cm EPSS: 1.7 cm Ao Arch Diam (Prox Trans): 2.5 cm IVSd: 0.82 cm LVPWd: 0.98 cm LV salas. diameter/BSA (cm/m^2): 3.2 LV sys. diameter/BSA (cm/m^2): 2.8 LA A2 area: 26.7 cm2 RA long axis: 4.7 cm LA A4 area: 29.6 cm2 RA area: 16.5 cm2 LA length (vol): 6.4 cm RA vol: 49.1 ml LA vol: 105.0 ml RA : 32.0 ml/m2 LA vol index: 68.5 ml/m2 IVC diam: 2.1 cm RVD1 (basal): 3.6 cm TAPSE: 1.8 cm Doppler Measurements & Calculations Ao V2 max: 138.7 cm/sec LVOT Max Ciro: 83.6 cm/sec Ao V2 mean: 94.8 cm/sec LV V1 max P.8 mmHg Ao max P.7 mmHg LV V1 VTI: 15.0 cm Ao mean P.1 mmHg JERRICA(I,D): 1.7 cm2 Ao V2 VTI: 25.2 cm JERRICA(V,D): 1.7 cm2 sev ratio: 0.60 JERRICA indexed to BSA (cm^2/m^2): 1.1 MV E max ciro: 152.3 cm/sec TR max ciro: 387.6 cm/sec MV A max ciro: 144.5 cm/sec TR max P.1 mmHg MV E/A: 1.1 PA V2 max: 73.6 cm/sec MV dec time: 0.17 sec PA V2 mean: 54.7 cm/sec MVA(VTI): 1.1 cm2 PA mean P.3 mmHg PA pr(Accel): 25.9 mmHg MV V2 mean: 128.3 cm/sec SV(LVOT): 41.9 ml MV mean P.2 mmHg MV V2 VTI: 37.1 cm Electronically signed by: Caroline Pineda M.D. on Reading Physician:08/16/2023 01:10 PM
--- NOTE | 2023-08-16 13:21 | P.HP_ITS ---
History of Present Illness History of Present Illness Date Patient Seen: 08/16/23 Time Patient Seen: 13:30 Date of Onset of Symptoms: 08/16/23 Chief complaint: Difficulty breathing with cough for months Narrative: 82-year-old woman with longstanding coronary artery disease, hypertension, hyperlipidemia, rheumatoid arthritis and macrocytic anemia of unclear etiology presents with progressive shortness of breath. She states this has been present for 2-3 months with harsh intermittent coughing and sharp chest pains, significantly worse over the last 1-2 days, with occasional nausea and vomiting. She sleeps in a bed with her head elevated, and has done so for several years, and denies lower extremity edema or recent weight gain. She is followed by Dr. Jurgen Warner and had an echocardiogram on 09/17/2022 showing ejection fraction 60-65% and moderate mitral regurgitation. Echocardiogram today showed ejection fraction 30-35% with severe mitral regurgitation. She is interviewed at bedside with her Chris, with whom she lives independently in [place]. She is followed by Dr. Nirav Goodman of Rheumatology, Dr. Jacqueline Paredes of Hematology, as well as another doctor at [facility] who she has seen for her anemia, in addition to her primary care provider. [facility] Medical History (Updated 08/16/23 @ 14:42 by Anton Vera MD) Coronary artery disease Do not resuscitate CKD stage 3b, GFR 30-44 ml/min Mixed hyperlipidemia Essential hypertension Acute systolic CHF (congestive heart failure) Rheumatoid arthritis Macrocytic anemia Anemia Acute dehydration Orthostatic hypotension Surgical History History of cataract removal with insertion of prosthetic lens Status post hysterectomy Status post hemorrhoidectomy Status post appendectomy Family History Brother Cancer Diabetes mellitus Heart disease Hypertension Hyperlipidemia Brother Cancer Diabetes mellitus Heart disease Hypertension Hyperlipidemia Sister Age: 94 Heart disease Hypertension Hyperlipidemia Social History household members: spouse Smoking Status: Never smoker alcohol intake: current Meds Home Medications and Allergies Home Medications Medication Instructions Recorded Confirmed Type epinephrine 0.3 mg/0.3 mL 0.3 mg (0.3 mL) IM X1 ##1 02/29/16 08/16/23 Rx injection, auto-injector cyclobenzaprine 10 mg tablet 10 - 20 mg PO BEDTIME 07/10/18 08/16/23 History diphenhydramine HCl 25 mg tablet 25 mg PO BEDTIME 07/10/18 08/16/23 History (Benadryl Allergy) folic acid 1 mg tablet 1 mg PO DAILY 07/10/18 08/16/23 History gabapentin 100 mg capsule 100 mg PO TID 07/10/18 08/16/23 History leflunomide 20 mg tablet 20 mg PO DAILY 07/10/18 08/16/23 History lovastatin 10 mg tablet 20 mg PO DAILY 07/10/18 08/16/23 History tramadol 50 mg tablet 50 mg PO Q6H PRN Pain (Scale Score 07/10/18 08/16/23 History 4-6) amlodipine 5 mg tablet (Norvasc) 5 mg PO DAILY 07/30/19 08/16/23 History Xanax 0.5 mg PO PRN PRN Anxiety 04/28/20 08/16/23 History clopidogrel 75 mg tablet 75 mg DAILY 04/28/20 08/16/23 History fexofenadine 180 mg tablet 180 mg PO DAILY 04/28/20 08/16/23 History losartan 25 mg tablet 50 mg PO DAILY 08/01/20 08/16/23 History alprazolam 0.5 mg tablet 0.5 mg PO DAILY PRN Anxiety 08/16/23 08/16/23 History carvedilol 25 mg tablet 25 mg PO BID 08/16/23 08/16/23 History conjugated estrogens 0.625 mg 0.625 mg PO DAILY 08/16/23 08/16/23 History tablet (Premarin) halobetasol propionate 0.05 % 1 applic topical DAILY 08/16/23 08/16/23 History topical cream lidocaine 5 % topical cream 1 applic topical BID PRN Pain 08/16/23 08/16/23 History (Scale Score 1-3) lorazepam 1 mg tablet 1 mg PO DAILY PRN Anxiety 08/16/23 08/16/23 History pantoprazole 40 mg tablet,delayed 40 mg PO DAILY 08/16/23 08/16/23 History release sertraline 25 mg tablet 25 mg PO DAILY 08/16/23 08/16/23 History Allergies Allergy/AdvReac Type Severity Reaction Status Date / Time ciprofloxacin [CIPROFLOXACIN] Allergy Severe Anaphylaxis Verified 08/16/23 10:25 doxycycline [DOXYCYCLINE] Allergy Severe Anaphylaxis Verified 08/16/23 10:25 hydrocodone [From VICODIN] Allergy Severe Anaphylaxis Verified 08/16/23 10:25 penicillin V [From PEN-VEE K] Allergy Severe Anaphylaxis Verified 08/16/23 10:25 shrimp Allergy Severe Anaphylaxis Verified 08/16/23 10:25 erythromycin base Allergy Unknown Verified 08/01/23 14:06 [ERYTHROMYCIN BASE] iodine Allergy Unknown ITCHING Verified 08/16/23 09:47 Review of Systems Review of Systems ROS: Yes All systems reviewed with the patient and are negative except as otherwise documented Exam Vital Signs (past 8 hours): - 08/16/23 08:27 08/16/23 08:27 08/16/23 08:30 Temperature Pulse Rate 87 86 Respiratory Rate Blood Pressure 204/91 H Pulse Oximetry 98 97 Oxygen Delivery Method 08/16/23 08:30 08/16/23 08:35 08/16/23 09:00 Temperature 97.7 F Pulse Rate 87 Respiratory Rate 19 Blood Pressure 200/93 H 204/91 H 204/90 H Pulse Oximetry 97 Oxygen Delivery Method Room Air 08/16/23 09:00 08/16/23 09:26 08/16/23 09:26 Temperature Pulse Rate 83 93 H Respiratory Rate 21 16 Blood Pressure 222/93 H Pulse Oximetry 97 97 Oxygen Delivery Method 08/16/23 09:28 08/16/23 09:29 08/16/23 09:30 Temperature Pulse Rate 88 87 87 Respiratory Rate 28 H Blood Pressure 222/93 H 222/93 H Pulse Oximetry 97 Oxygen Delivery Method 08/16/23 09:30 08/16/23 09:35 08/16/23 09:35 Temperature Pulse Rate 90 Respiratory Rate 24 Blood Pressure 217/100 H 193/93 H Pulse Oximetry 98 Oxygen Delivery Method 08/16/23 09:40 08/16/23 09:40 08/16/23 09:45 Temperature Pulse Rate 84 82 Respiratory Rate 21 15 Blood Pressure 204/90 H Pulse Oximetry 97 98 Oxygen Delivery Method 08/16/23 09:45 08/16/23 09:50 08/16/23 09:50 Temperature Pulse Rate 83 Respiratory Rate 15 Blood Pressure 203/98 H 212/95 H Pulse Oximetry 98 Oxygen Delivery Method 08/16/23 09:55 08/16/23 09:55 08/16/23 10:00 Temperature Pulse Rate 82 86 Respiratory Rate 15 28 H Blood Pressure 202/100 H Pulse Oximetry 97 97 Oxygen Delivery Method 08/16/23 10:00 08/16/23 10:05 08/16/23 10:05 Temperature Pulse Rate 86 Respiratory Rate 18 Blood Pressure 204/99 H 208/98 H Pulse Oximetry 98 Oxygen Delivery Method 08/16/23 10:31 08/16/23 10:32 08/16/23 10:32 Temperature Pulse Rate 90 87 Respiratory Rate 13 21 Blood Pressure 209/95 H Pulse Oximetry 96 96 Oxygen Delivery Method 08/16/23 10:35 08/16/23 10:35 08/16/23 10:40 Temperature Pulse Rate 85 88 Respiratory Rate 17 20 Blood Pressure 216/98 H Pulse Oximetry 97 97 Oxygen Delivery Method 08/16/23 10:40 08/16/23 10:45 08/16/23 10:45 Temperature Pulse Rate 86 Respiratory Rate 21 Blood Pressure 206/94 H 205/97 H Pulse Oximetry 97 Oxygen Delivery Method 08/16/23 10:50 08/16/23 10:50 08/16/23 10:55 Temperature Pulse Rate 83 82 Respiratory Rate 15 22 Blood Pressure 203/94 H Pulse Oximetry 97 96 Oxygen Delivery Method 08/16/23 10:55 08/16/23 11:00 08/16/23 11:00 Temperature Pulse Rate 82 Respiratory Rate 19 Blood Pressure 202/94 H 207/98 H Pulse Oximetry 97 Oxygen Delivery Method 08/16/23 11:05 08/16/23 11:05 Temperature Pulse Rate 81 Respiratory Rate 20 Blood Pressure 201/98 H Pulse Oximetry 97 Oxygen Delivery Method Oxygen Delivery Method Room Air Objective Imaging Chest x-ray: Radiologist's impression: Suspected mild pulmonary edema versus fluid overload. CT scan - chest: Radiologist's impression: No pulmonary embolus. Moderate pulmonary edema with small to moderate pleural effusions. Reflux of contrast into the IVC, indicating elevated right heart pressures. Severe right shoulder osteoarthritis with a large right joint effusion. Echo: Radiologist's impression: Normal sinus rhythm. Normal LV size and wall thickness. There is mild global hypokinesis. Ejection fraction is 30-35 %. Worst movement is demonstrated by basal inferior lateral segment. EPSS is 1.7 cm consistent with cardiomyopathy. Severe left atrial enlargement. Otherwise normal chamber sizes. Aortic valve is a trileaflet structure characterized by moderately thickened and calcified leaflets. Moderate aortic regurgitation. Moderate mitral annular calcification with severe central mitral regurgitation. Moderate tricuspid regurgitation Estimated PA systolic pressure 75 mmHg assuming right atrial pressure 15 mmHg. Compared to prior echo performed September 17, 2022, LV is not as dynamic. EF is down from 60-65% to 30-35%. Mitral regurgitation progressed from moderate to severe. The caveat is that the quantitative parameters of mitral regurgitation were not assessed. Recommend limited dedicated echo to compute regurgitant volume and effective regurgitant orifice area via Pisa method. Elevated PA systolic pressure is newly described. Labs 08/16/23 08:47 08/16/23 08:47 Labs: Laboratory Results - last 24 hr 08/16/23 08/16/23 08:47 09:32 WBC 10.4 RBC 2.69 L Hgb 8.6 L Hct 24.9 L MCV 92.6 MCH 31.8 MCHC 34.4 RDW 16.1 H Plt Count 309 Neut % (Auto) Not Reportable Lymph % (Auto) Not Reportable [place] % (Auto) Not Reportable Eos % (Auto) Not Reportable Baso % (Auto) Not Reportable Lymph # (Auto) Not Reportable [place] # (Auto) Not Reportable Baso # (Auto) Not Reportable Total Counted 100 Seg Neutrophils % 68.0 Band Neutrophils % 3.0 Lymphocytes % (Manual) 9.0 L Monocytes % (Manual) 12.0 H Eosinophils % (Manual) 7.0 H Basophils % (Manual) 1.0 Neutrophils # (Manual) 7384 H Nucleated RBCs 1 H RBC Morphology Not Reportable Anisocytosis 1+ H D-Dimer 1367 H Sodium 120 L Potassium 5.2 H Chloride 95 L Carbon Dioxide 17 L BUN 29 H Creatinine 1.82 H Estimated GFR 28 L BUN/Creatinine Ratio 15.9 Glucose 106 Calcium 8.0 L Total Bilirubin 0.8 AST 60 H ALT 42 H Alkaline Phosphatase 131 H Total Creatine Kinase 112 Troponin I < 0.012 NT-Pro-B Natriuret Pep 30774 H Total Protein 7.8 Albumin 3.5 Globulin 4.3 H Albumin/Globulin Ratio 0.8 L Lipase 56 Chlamy pneumoniae PCR Not detected Adenovirus (PCR) Not detected B.parapertussis DNA PCR Not detected Coronavirus OC43 (PCR) Not detected Coronavirus HKU1 (PCR) Not detected Coronavirus 229E (PCR) Not detected SARS-CoV-2 (PCR) Not detected Coronavirus NL63 (PCR) Not detected Human Metapneumovir PCR Not detected Influenza Type A (PCR) Not detected Influenza Type B (PCR) Not detected M. pneumoniae (PCR) Not detected Parainfluenza 1 (PCR) Not detected Parainfluenza 2 (PCR) Not detected Parainfluenza 3 (PCR) Not detected Parainfluenza 4 (PCR) Not detected RSV (PCR) Not detected Entero/Rhino (PCR) Not detected Assessment & Plan Assessment and plan (1) Acute systolic CHF (congestive heart failure): Problem details: New diagnosis, etiology unclear. Admit to hospital, diurese, follow serial cardiac enzymes, and anticipate outpatient Cardiology consultation and follow- up. Status: Acute (2) Pleural effusion: Status: Acute (3) Coronary artery disease: Problem details: Rule out ischemic cardiomyopathy. Monitor serial cardiac enzymes. Consider anginal equivalent chest pain. Continue current medications. When clinically compensated as an outpatient, consider noninvasive nuclear medicine perfusion scan. Qualifiers: Coronary Disease-Associated Artery/Lesion type: burns paiute artery [place] vs. transplanted heart: burns pai[place] heart Associated angina: unspecified whether angina present Qualified Code(s): I25.10 - Atherosclerotic heart disease of burns paiute coronary artery without angina pectoris Status: Acute (4) Hyponatremia: Problem details: Monitor with diuresis. Etiology: Congestive heart failure. Status: Acute (5) Rheumatoid arthritis: Problem details: Clinically stable. Continue routine medications. Qualifiers: Rheumatoid arthritis location: unspecified site Rheumatoid factor presence: unspecified presence Qualified Code(s): M06.9 - Rheumatoid arthritis, unspecified Status: Acute (6) Macrocytic anemia: Problem details: Clinically stable at baseline hematocrit, though possibly lower due to volume overload. Monitor with diuresis. Status: Acute (7) Essential hypertension: Problem details: Presenting with hypertensive urgency. Monitor with diuresis and routine medications. Status: Acute (8) Mixed hyperlipidemia: Problem details: Continue routine medication. Status: Acute (9) CKD stage 3b, GFR 30-44 ml/min: Problem details: Monitor with diuresis. Status: Acute (10) Do not resuscitate: Problem details: Advanced care planning reviewed today. Advanced directives reviewed and discussed regarding end-of-life care that the patient wishes to have respected. At least 16 minutes was spent in assessment and discussion in the full context of the patient's expressed wishes and medical conditions. After discussion today of the patient's medical condition and generally poor statistics regarding successful resuscitation at the patient's age and cormorbidities, the patient decides on Do Not Resuscitate status today. The patient expresses understanding regarding the implications of this decision and states this clearly with her present. Status: Acute Plan Admit to observation status Continue IV furosemide 40 mg every 8 hours Monitor serial cardiac enzymes Monitor electrolytes and hematocrit Possible discharge home tomorrow if feeling significantly better for outpatient workup Time-Based Coding :: [TOTAL MINUTES] spent with patient and on the chart (including review of chart, obtaining history, exam, reviewing outside data, placing orders, documenting exam and treatment plan, and counseling patient) on [DATE]. Quality VTE Deep Vein Thrombosis/Pulmonary Embolism Present on Admission: No MIPS - Admit I confirm the patient?s Advance Care Plan is present, Code status is documented, Surrogate decision maker is in patient?s record [If Yes, STOP here]: Yes [facility] - Meds 'Current medications' to include all prescriptions, [id number] products, herbals, cannabis/cannabidiol products, and vitamin/mineral/dietary (nutritional) supplements. I have utilized all available resources to obtain, update, or review the patient?s current medications. [If Yes, STOP here]: Yes [facility] Charge Codes Initial inpatient/observation care: [id number]
--- NOTE | 2023-08-16 13:47 | PC.NURSE ---
Dr. Vera just into see patient, she denies pain or discomfort at this time and is resting. Patient states that she has been coughing for 3 months and this has caused her some chest pain. is at bedside and visiting.
[2023-08-16] MEDS: ENOXAPARIN 30 MG/0.3 ML SYRINGE SUBCUT (14:19)
--- NOTE | 2023-08-16 15:00 | DIET.CONS ---
Dietary Consultation Note Admission Date: 08/16/2023 11:00 Assessment: 82 y F admitted for acute systolic CHF. PMH of CAD, CKD3. Nutrition consulted for CHF. Met w/ pt at bedside who reports a decrease in appetite and taste changes that started with cough 2-3 months ago. Reports being sensitive to sodium now and has reduced salt use on foods. Diet recall: B-oatmeal or eggs and muir and cheese L-soup Crackers (2-3) or rice cakes 4x/day NFPE: -moderate temporalis loss, moderate loss clavicle region, severe loss interosseous -mild loss orbital and triceps Ht: 157.48 cm Wt: 53 kg BMI: 21.3 UBW: 54.55 kg per pt 2-3 months ago (3% weight loss in 3 months, non-significant) Last BM: 08/16/23 (08/16/23 11:53) MNA: 13 [place] Score: 19 Diet: 08/16/23 Dinner Heart Healthy Diet Diet Modifications: Labs: RBC 2.69 X10^6/uL (4.0-5.2) L 08/16/23 08:47 Hgb 8.6 g/dL (12.0-16.0) L 08/16/23 08:47 Hct 24.9 % (36-46) L 08/16/23 08:47 Creatinine 1.82 mg/dL (0.52-1.04) H 08/16/23 08:47 NT-Pro-B Natriuret Pep 03875 pg/mL (<450) H 08/16/23 08:47 Nutrition Diagnosis: Moderate acute protein calorie malnutrition r/t increased energy-protein needs (CHF) and decreased appetite in setting of taste changes and cough aeb moderate to severe muscle wasting (temporalis, deltoid, pectoralis, trapezius, interosseous), mild subcutaneous fat loss (triceps, orbital), <75% of estimated energy requirements for 2 months, underweight BMI for age (21.4) Interventions: 1. Discussed adequate intake, small freq meals, trial of ONS, heart healthy nutrition EER: [id number] kcals (25-30 kcal/kg per BMI) 55 g protein (CKD3, PCM, CHF) Monitoring/Evaluations: po intakes, ons Electronically Signed by: Lupe Garcia 08/16/23 15:00 Clinical Dietitian [address] [address]
[2023-08-16] MEDS: GABAPENTIN 100 MG CAPSULE PO ×2 (15:22→21:29)
[2023-08-16] MEDS: ATORVASTATIN 20 MG TABLET 10 MG PO (21:28)
[2023-08-16] MEDS: SERTRALINE 50 MG TABLET 25 MG PO (21:29)
[2023-08-16] MEDS: diphenhydrAMINE 25 MG TABLET PO (21:30)
[2023-08-17] VITALS (14 sets, daily range): BP systolic 165–193; BP diastolic 64–82; PULSE 70–80; RESP 16–18; TEMP 36.1–36.7; O2SAT 96–100
[2023-08-17 05:56] LABS: Add Manual Diff / Slide Review NO; Basophils Absolute Auto 0 /uL (0-100); Basophils Percent Auto 0.2 % (0-2); Eosinophils Absolute Auto 0 /uL (0-450); Hematocrit 23.1 % (36-46); Hemoglobin 7.8 g/dL (12.0-16.0); Lymphocytes Absolute Auto 800 /uL (1100-4500); Lymphocytes Percent Auto 13.7 % (25-40); Mean Corpuscular HGB Conc 33.9 % (30-36); Mean Corpuscular Volume 91.6 fL (80-100); Monocytes Absolute Auto 300 /uL (0-900); Neutrophils Absolute Auto 4400 /uL (1500-7000); Neutrophils Percent Auto 80.1 % (50-75); Platelet Count 272 X10^3/uL (150-400); Red Blood Cell Count 2.52 X10^6/uL (4.0-5.2); White Blood Cell Count 5.6 X10^3/uL (4.5-11.0)
[2023-08-17 06:07] LABS: Alanine Aminotransferase 34 IU/L (<35); Albumin 3.2 g/dL (3.5-5.0); Albumin Globulin Ratio 0.8 (1.0-2.8); Alkaline Phosphatase 131 U/L (38-126); Aspartate Aminotransferase 38 IU/L (14-36); BUN Creatinine Ratio 16.7 (6-22); Bilirubin Total 0.6 mg/dL (0.2-1.3); Blood Urea Nitrogen 36 mg/dL (7-17); Carbon Dioxide 20 mmol/L (22-32); Chloride 92 mmol/L (98-107); Estimated Glomerular Filt Rate 23 mL/min (>60); Globulin 3.8 g/dL (1.7-4.1); Glucose 112 mg/dL (80-110); HEMOLYSIS < 15 (0-50); Magnesium 1.8 mg/dL (1.6-2.3); Potassium 4.3 mmol/L (3.4-5.1); Sodium 123 mmol/L (137-145)
[2023-08-17] MEDS: FUROSEMIDE 40 MG/4 ML VIAL IV ×3 (06:14→20:19)
[2023-08-17 06:15] LABS: Troponin I < 0.012 ng/mL (0.01-0.034)
[2023-08-17] MEDS: ENOXAPARIN 30 MG/0.3 ML SYRINGE SUBCUT (08:41)
[2023-08-17] MEDS: PANTOPRAZOLE DR 40 MG TABLET PO (08:42)
[2023-08-17] MEDS: LORATADINE 10 MG TABLET PO (08:42)
[2023-08-17] MEDS: carvediloL 12.5 MG TABLET 25 MG PO ×2 (08:42→20:17)
[2023-08-17] MEDS: LOSARTAN 25 MG TABLET 50 MG PO (08:42)
[2023-08-17] MEDS: FOLIC ACID 1 MG TABLET PO (08:42)
--- NOTE | 2023-08-17 13:22 | CM.DANOTE ---
Initial DCP Assessment Note Pt is a 82 yo female, resident of [place], arrives w/SOB, admitted OBS for management of CHF PCP: Mckenzie Gomez Payer: [employer] Reviewed chart, met w/patient to introduce self and role. Patient lives independently in [place] with her spouse, spouse does chores and drives. Patient has one adult child that lives 15 min away, one that lives approx 2 hours away and the third lives in [place]. Patient denies needs from this CM team, appreciative for the visit. No barriers identified at this time to patient's safe discharge home w/family to assist; close outpatient f/u recommended. CM team will plan to follow clinical course closely in case any DC needs or concerns arise. WAI Brown Discharge Planning/Care Management CM Discharge Assessment Start: 08/17/23 13:21 Freq: Status: Active Protocol: Document 08/17/23 13:21 KASSANDRA (Rec: 08/17/23 13:22 KASSANDRA [id number]) Discharge Planning Assessment Assigned Stopper Maker Helper WAI Lopez DPOA/Assigned Designee Name Chris South, spouse Contact Information [phone] Advance Directives? Yes Advance Directives on File No History Provided By Patient,Medical Record Prior Living Arrangements House Household Members spouse Type of transporation used prior to Relies on Others admit Independent with ADL's Yes Is patient alert and oriented? Yes Needs Assistance With Home Chores / Shopping Barriers to Discharge No Discharge Plan Home Transportation Arrangement Spouse Referrals Initiated None needed
--- NOTE | 2023-08-17 13:41 | P.PN_ITS ---
Subjective Subjective Date Patient Seen: 08/17/23 Time Patient Seen: 08:45 Interval history: The patient reports feeling better with improved breathing overnight. She had only 400 mL net diuresis. Exam Vital Signs (past 8 hours): - 08/17/23 06:00 08/17/23 08:00 08/17/23 08:00 Temperature 97.5 F L Pulse Rate 74 Respiratory Rate 16 Blood Pressure 178/64 H Pulse Oximetry 98 98 Oxygen Delivery Method Room Air Room Air Oxygen Flow Rate 08/17/23 08:42 08/17/23 08:42 08/17/23 10:00 Temperature Pulse Rate 70 70 Respiratory Rate Blood Pressure 178/64 H 178/64 H Pulse Oximetry 98 Oxygen Delivery Method Room Air Oxygen Flow Rate 0 08/17/23 12:00 Temperature 97.2 F L Pulse Rate 73 Respiratory Rate 16 Blood Pressure 193/72 H Pulse Oximetry 100 Oxygen Delivery Method Oxygen Flow Rate Oxygen Delivery Method Room Air Oxygen Flow Rate 0 Narrative Exam Narrative: GENERAL: This is a well-nourished, well-developed patient, in no apparent distress. EYES: Pupils equal round and reactive. Extraocular motions intact. No scleral icterus. No injection or drainage. ENT: Mucous membranes pink and moist. NECK: Supple, nontender, no meningeal signs. CARDIOVASCULAR: Regular rate and rhythm without murmurs, gallops, or rubs. RESPIRATORY: Coarse basilar rales lower 1/3 bilaterally. GASTROINTESTINAL: Abdomen soft, non-tender, nondistended. EXTREMITIES: Trace pedal edema. NEUROLOGIC: Alert, oriented, speech fluent, full upper and lower motor strength, no focal deficits evident. DERMATOLOGIC: No rashes or skin lesions. Objective Labs 08/17/23 05:15 08/17/23 05:15 Labs: Laboratory Results - last 24 hr 08/17/23 05:15 WBC 5.6 RBC 2.52 L Hgb 7.8 L Hct 23.1 L MCV 91.6 MCH 31.0 MCHC 33.9 RDW 16.0 H Plt Count 272 Neut % (Auto) 80.1 H Lymph % (Auto) 13.7 L [place] % (Auto) 6.0 Eos % (Auto) 0.0 L Baso % (Auto) 0.2 Neut # (Auto) 4400 Lymph # (Auto) 800 L [place] # (Auto) 300 Eos # (Auto) 0 Baso # (Auto) 0 Sodium 123 L Potassium 4.3 Chloride 92 L Carbon Dioxide 20 L BUN 36 H Creatinine 2.15 H Estimated GFR 23 L BUN/Creatinine Ratio 16.7 Glucose 112 H Calcium 8.0 L Magnesium 1.8 Total Bilirubin 0.6 AST 38 H ALT 34 Alkaline Phosphatase 131 H Troponin I < 0.012 Total Protein 7.0 Albumin 3.2 L Globulin 3.8 Albumin/Globulin Ratio 0.8 L [facility] Medical History (Updated 08/17/23 @ 13:44 by Anton Vera MD) Coronary artery disease Do not resuscitate CKD stage 3b, GFR 30-44 ml/min Mixed hyperlipidemia Essential hypertension Acute systolic CHF (congestive heart failure) Rheumatoid arthritis Macrocytic anemia Anemia Acute dehydration Orthostatic hypotension Surgical History History of cataract removal with insertion of prosthetic lens Status post hysterectomy Status post hemorrhoidectomy Status post appendectomy Family History Brother Cancer Diabetes mellitus Heart disease Hypertension Hyperlipidemia Brother Cancer Diabetes mellitus Heart disease Hypertension Hyperlipidemia Sister Age: 94 Heart disease Hypertension Hyperlipidemia Social History household members: spouse Smoking Status: Never smoker alcohol intake: current Assessment & Plan Assessment and plan (1) Acute systolic CHF (congestive heart failure): Problem details: New diagnosis, etiology unclear. Slow to respond with underlying CKD. Changed to inpatient status. She will require at least 2 midnights of inpatient level care. Continue to diurese, follow serial cardiac enzymes, and anticipate outpatient Cardiology consultation and follow-up. Status: Acute (2) Pleural effusion: Status: Acute (3) Coronary artery disease: Problem details: Rule out ischemic cardiomyopathy. Monitor serial cardiac enzymes. Consider anginal equivalent chest pain. Continue current medications. When clinically compensated as an outpatient, consider noninvasive nuclear medicine perfusion scan. Qualifiers: Coronary Disease-Associated Artery/Lesion type: [place] artery [place] vs. transplanted heart: [place] heart Associated angina: unspecified whether angina present Qualified Code(s): I25.10 - Atherosclerotic heart disease of [place] coronary artery without angina pectoris Status: Acute (4) Hyponatremia: Problem details: Monitor with diuresis. Etiology: Congestive heart failure. Status: Acute (5) Rheumatoid arthritis: Problem details: Clinically stable. Continue routine medications. Qualifiers: Rheumatoid arthritis location: unspecified site Rheumatoid factor presence: unspecified presence Qualified Code(s): M06.9 - Rheumatoid arthritis, unspecified Status: Acute (6) Macrocytic anemia: Problem details: Clinically stable at baseline hematocrit, though possibly lower due to volume overload. Monitor with diuresis. Status: Acute (7) Essential hypertension: Problem details: Presenting with hypertensive urgency. Monitor with diuresis and routine medications. Status: Acute (8) Mixed hyperlipidemia: Problem details: Continue routine medication. Status: Acute (9) CKD stage 3b, GFR 30-44 ml/min: Problem details: Monitor with diuresis. Prognosis guarded. Consider contrast nephropathy. Status: Acute (10) Do not resuscitate: Problem details: Advanced care planning reviewed today. Advanced directives reviewed and discussed regarding end-of-life care that the patient wishes to have respected. At least 16 minutes was spent in assessment and discussion in the full context of the patient's expressed wishes and medical conditions. After discussion today of the patient's medical condition and generally poor statistics regarding successful resuscitation at the patient's age and cormorbidities, the patient decides on Do Not Resuscitate status today. The patient expresses understanding regarding the implications of this decision and states this clearly with her present. Status: Acute Plan Change to inpatient status Continue IV furosemide 40 mg every 8 hours Monitor electrolytes and hematocrit Time-Based Coding :: [TOTAL MINUTES] spent with patient and on the chart (including review of chart, obtaining history, exam, reviewing outside data, placing orders, documenting exam and treatment plan, and counseling patient) on [DATE]. Quality VTE Deep Vein Thrombosis/Pulmonary Embolism Present on Admission: No PROFEE Charge codes Subsequent inpatient/observation care: 00512
[2023-08-17] MEDS: ACETAMINOPHEN 325 MG TABLET 650 MG PO (20:16)
[2023-08-17] MEDS: GABAPENTIN 100 MG CAPSULE PO (20:17)
[2023-08-17] MEDS: ATORVASTATIN 20 MG TABLET 10 MG PO (20:18)
[2023-08-17] MEDS: diphenhydrAMINE 25 MG TABLET PO (20:18)
[2023-08-17] MEDS: SERTRALINE 50 MG TABLET 25 MG PO (20:18)
[2023-08-18] VITALS (15 sets, daily range): BP systolic 150–199; BP diastolic 52–88; PULSE 66–76; RESP 16–20; TEMP 36.1–36.7; O2SAT 96–100
[2023-08-18] MEDS: FUROSEMIDE 40 MG/4 ML VIAL IV (06:28)
--- NOTE | 2023-08-18 07:31 | P.PN_ITS ---
Subjective Subjective Date Patient Seen: 08/18/23 Time Patient Seen: 08:35 Interval history: The patient reports feeling better today without only mild to moderate shortness of breath with exertion. Exam Vital Signs (past 8 hours): - 08/18/23 00:00 08/18/23 02:00 08/18/23 04:00 Temperature 97.2 F L 97.1 F L Pulse Rate 68 69 Respiratory Rate 18 18 Blood Pressure 150/57 H 199/75 H Pulse Oximetry 98 98 99 Oxygen Delivery Method Room Air 08/18/23 06:00 08/18/23 06:54 Temperature Pulse Rate Respiratory Rate Blood Pressure 180/66 H Pulse Oximetry 99 Oxygen Delivery Method Room Air Oxygen Delivery Method Room Air Oxygen Flow Rate 0 Narrative Exam Narrative: GENERAL: This is a well-nourished, well-developed patient, in no apparent distress. EYES: Pupils equal round and reactive. Extraocular motions intact. ENT: Mucous membranes pink and moist. NECK: Supple, nontender, no meningeal signs. CARDIOVASCULAR: Regular rate and rhythm without murmurs, gallops, or rubs. RESPIRATORY: Coarse basilar rales lower 1/3 bilaterally. GASTROINTESTINAL: Abdomen soft, non-tender, nondistended. EXTREMITIES: Trace pedal edema. NEUROLOGIC: Alert, oriented, speech fluent, full upper and lower motor strength, no focal deficits evident. DERMATOLOGIC: No rashes or skin lesions. Objective Labs 08/18/23 06:30 08/18/23 06:30 [facility] Medical History (Updated 08/18/23 @ 13:51 by Anton Vera MD) CHELSY (acute kidney injury) Coronary artery disease Do not resuscitate CKD stage 3b, GFR 30-44 ml/min Mixed hyperlipidemia Essential hypertension Acute systolic CHF (congestive heart failure) Rheumatoid arthritis Macrocytic anemia Anemia Acute dehydration Orthostatic hypotension Surgical History History of cataract removal with insertion of prosthetic lens Status post hysterectomy Status post hemorrhoidectomy Status post appendectomy Family History Brother Cancer Diabetes mellitus Heart disease Hypertension Hyperlipidemia Brother Cancer Diabetes mellitus Heart disease Hypertension Hyperlipidemia Sister Age: 94 Heart disease Hypertension Hyperlipidemia Social History household members: spouse Smoking Status: Never smoker alcohol intake: current Assessment & Plan Assessment and plan (1) Acute systolic CHF (congestive heart failure): Problem details: New diagnosis, etiology unclear. Slow to respond with underlying CKD. Hold diuresis given progressive renal insufficiency. Anticipate outpatient Cardiology consultation and follow-up. Status: Acute (2) CHELSY (acute kidney injury): Problem details: Possible contrast nephropathy superimposed on volume depletion in the setting of chronic kidney disease. Continue to monitor. Hold diuresis at this point. Status: Acute (3) CKD stage 3b, GFR 30-44 ml/min: Problem details: Monitor with diuresis. Prognosis guarded. Consider contrast nephropathy. Status: Acute (4) Pleural effusion: Status: Acute (5) Coronary artery disease: Problem details: Rule out ischemic cardiomyopathy. Monitor serial cardiac enzymes. Consider anginal equivalent chest pain. Continue current medications. When clinically compensated as an outpatient, consider noninvasive nuclear medicine perfusion scan. Qualifiers: Associated angina: unspecified whether angina present Coronary Disease- Associated Artery/Lesion type: [place] artery [place] vs. transplanted heart: [place] heart Qualified Code(s): I25.10 - Atherosclerotic heart disease of [place] coronary artery without angina pectoris Status: Acute (6) Hyponatremia: Problem details: Monitor with diuresis. Etiology: Congestive heart failure. Status: Acute (7) Rheumatoid arthritis: Problem details: Clinically stable. Continue routine medications. Qualifiers: Rheumatoid arthritis location: unspecified site Rheumatoid factor presence: unspecified presence Qualified Code(s): M06.9 - Rheumatoid arthritis, unspecified Status: Acute (8) Macrocytic anemia: Problem details: Clinically stable at baseline hematocrit, though possibly lower due to volume overload. Monitor with diuresis. Status: Acute (9) Essential hypertension: Problem details: Presenting with hypertensive urgency. Monitor with diuresis and routine medications. Status: Acute (10) Mixed hyperlipidemia: Problem details: Continue routine medication. Status: Acute (11) Do not resuscitate: Problem details: Advanced care planning reviewed today. Advanced directives reviewed and discussed regarding end-of-life care that the patient wishes to have respected. At least 16 minutes was spent in assessment and discussion in the full context of the patient's expressed wishes and medical conditions. After discussion today of the patient's medical condition and generally poor statistics regarding successful resuscitation at the patient's age and cormorbidities, the patient decides on Do Not Resuscitate status today. The patient expresses understanding regarding the implications of this decision and states this clearly with her present. Status: Acute Plan 82-year-old woman new onset cardiomyopathy refractory to diuresis, possibly due to contrast nephropathy from CT angiography performed on admission. Hold diuresis and monitor closely. Assessment & Plan narrative: Hold diuresis, encourage oral hydration today, avoid IV hydration given brittle congestive heart Monitor renal function closely, possible contrast nephropathy Consider advancing diuresis tomorrow if improved. If progressive renal decline may require Nephrology consultation Quality VTE Deep Vein Thrombosis/Pulmonary Embolism Present on Admission: No PROFEE Charge codes Subsequent inpatient/observation care: [id number]
[2023-08-18 07:35] LABS: Add Manual Diff / Slide Review NO; Basophils Absolute Auto 100 /uL (0-100); Basophils Percent Auto 0.7 % (0-2); Eosinophils Absolute Auto 300 /uL (0-450); Eosinophils Percent Auto 3.8 % (2-4); Hematocrit 25.1 % (36-46); Hemoglobin 8.5 g/dL (12.0-16.0); Lymphocytes Absolute Auto 1800 /uL (1100-4500); Lymphocytes Percent Auto 23.6 % (25-40); Mean Corpuscular HGB Conc 33.9 % (30-36); Mean Corpuscular Hemoglobin 31.2 PG (26-34); Monocytes Absolute Auto 1700 /uL (0-900); Monocytes Percent Auto 21.7 % (3-14); Neutrophils Absolute Auto 3900 /uL (1500-7000); Neutrophils Percent Auto 50.2 % (50-75); Platelet Count 315 X10^3/uL (150-400); Red Blood Cell Count 2.73 X10^6/uL (4.0-5.2); Red Cell Distribution Width 16.3 % (11.6-14.8); White Blood Cell Count 7.8 X10^3/uL (4.5-11.0)
[2023-08-18 07:39] LABS: BUN Creatinine Ratio 17.5 (6-22); Blood Urea Nitrogen 44 mg/dL (7-17); Calcium 8.2 mg/dL (8.4-10.2); Carbon Dioxide 26 mmol/L (22-32); Chloride 87 mmol/L (98-107); Estimated Glomerular Filt Rate 19 mL/min (>60); Glucose 91 mg/dL (80-110); HEMOLYSIS < 15 (0-50); Sodium 123 mmol/L (137-145)
[2023-08-18] MEDS: FOLIC ACID 1 MG TABLET PO (09:57)
[2023-08-18] MEDS: AMLODIPINE 5 MG TABLET PO (09:57)
[2023-08-18] MEDS: carvediloL 12.5 MG TABLET 25 MG PO ×2 (09:57→20:37)
[2023-08-18] MEDS: LOSARTAN 25 MG TABLET 50 MG PO (09:57)
[2023-08-18] MEDS: GABAPENTIN 100 MG CAPSULE PO ×3 (09:57→20:40)
[2023-08-18] MEDS: PANTOPRAZOLE DR 40 MG TABLET PO (09:57)
[2023-08-18] MEDS: LORATADINE 10 MG TABLET PO (09:57)
[2023-08-18] MEDS: ENOXAPARIN 30 MG/0.3 ML SYRINGE SUBCUT (09:59)
--- NOTE | 2023-08-18 11:37 | CM.DPNOTE ---
DCP Note ADVANCED PRACTICE NURSE PSYCHOTHERAPIST reviewed EMR. Per UR RN, pt changed to INPT from time of admission. Per hospitalist in morning rounds, due to pt's recent lab results, need to change a few of her medications around. no new CM needs likely. P: No barriers identified at this time to patient's safe discharge home w/family (spouse/child) to assist; close outpatient f/u recommended. CM team will plan to follow clinical course closely in case any DC needs or concerns arise. WAI Rao
[2023-08-18] MEDS: BENZONATATE 100 MG CAPSULE PO (14:54)
[2023-08-18] MEDS: SERTRALINE 50 MG TABLET 25 MG PO (20:37)
[2023-08-18] MEDS: ATORVASTATIN 20 MG TABLET 10 MG PO (20:39)
[2023-08-18] MEDS: diphenhydrAMINE 25 MG TABLET PO (20:39)
[2023-08-18] MEDS: FLUTICASONE 120 SPRAY/16 GM SPRAY.SUSP NASAL (20:39)
[2023-08-18] MEDS: CODEINE/GUAIFENESIN LIQUID 5ML UDC 5 ML PO (23:08)
[2023-08-19] VITALS (8 sets, daily range): BP systolic 118–189; BP diastolic 51–64; PULSE 67–85; RESP 15–18; TEMP 36.1–37.7; O2SAT 93–100
[2023-08-19] MEDS: HYDRALAZINE 20 MG/ML VIAL 10 MG IV (04:03)
[2023-08-19 06:13] LABS: Hematocrit 25.3 % (36-46); Hemoglobin 8.8 g/dL (12.0-16.0); Mean Corpuscular HGB Conc 34.7 % (30-36); Mean Corpuscular Hemoglobin 31.7 PG (26-34); Mean Corpuscular Volume 91.5 fL (80-100); Platelet Count 313 X10^3/uL (150-400); Red Blood Cell Count 2.77 X10^6/uL (4.0-5.2); Red Cell Distribution Width 16.2 % (11.6-14.8); White Blood Cell Count 8.4 X10^3/uL (4.5-11.0)
[2023-08-19 06:15] LABS: Add Manual Diff / Slide Review YES
[2023-08-19 06:18] LABS: Alanine Aminotransferase 28 IU/L (<35); Albumin 3.6 g/dL (3.5-5.0); Albumin Globulin Ratio 0.9 (1.0-2.8); Alkaline Phosphatase 123 U/L (38-126); Aspartate Aminotransferase 30 IU/L (14-36); BUN Creatinine Ratio 19.2 (6-22); Bilirubin Total 0.6 mg/dL (0.2-1.3); Blood Urea Nitrogen 44 mg/dL (7-17); Calcium 8.3 mg/dL (8.4-10.2); Carbon Dioxide 29 mmol/L (22-32); Chloride 89 mmol/L (98-107); Estimated Glomerular Filt Rate 21 mL/min (>60); Globulin 4.1 g/dL (1.7-4.1); Glucose 106 mg/dL (80-110); HEMOLYSIS < 15 (0-50); Potassium 3.3 mmol/L (3.4-5.1); Sodium 123 mmol/L (137-145); Total Protein 7.7 g/dL (6.3-8.2)
[2023-08-19 06:56] LABS: Neutrophils Absolute Manual 4368 /uL (3000-5900); Total Cells Counted 100
[2023-08-19 06:58] LABS: Anisocytosis 1+
[2023-08-19] MEDS: ENOXAPARIN 30 MG/0.3 ML SYRINGE SUBCUT (09:37)
[2023-08-19] MEDS: FLUTICASONE 120 SPRAY/16 GM SPRAY.SUSP NASAL ×2 (09:38→21:35)
[2023-08-19] MEDS: LORATADINE 10 MG TABLET PO (09:38)
[2023-08-19] MEDS: PANTOPRAZOLE DR 40 MG TABLET PO (09:38)
[2023-08-19] MEDS: FOLIC ACID 1 MG TABLET PO (09:38)
[2023-08-19] MEDS: GABAPENTIN 100 MG CAPSULE PO ×3 (09:38→21:35)
--- NOTE | 2023-08-19 09:57 | PC.NURSE ---
Patient is awake and states that she is feeling better. Her lung sounds are clear. Patient is up with sba to the bathroom. She is visiting with her now.
--- NOTE | 2023-08-19 10:25 | DIET.CONS2 ---
Dietary Inpatient Consultation Note Admission Date: 08/16/2023 11:00 Nutrition f/u. Pt with 75-100% recorded po intakes. Ensure original 1x/d. DFM reviewed for meal composition. Will continue to monitor po intakes. Diet: 08/16/23 Dinner Heart Healthy Diet Diet Modifications: Nutrition Percent Meal Consumed 100% 08/18/23 18:00 Percent Meal Consumed 100% 08/18/23 08:00 Percent Meal Consumed 100% 08/17/23 18:00 Percent Meal Consumed 100% 08/17/23 13:34 Electronically Signed by: Lupe Garcia 08/19/23 10:25 Clinical Dietitian [address] [address]
--- NOTE | 2023-08-19 13:05 | DI.ECHO.S_ITS ---
[facility]---------+ [facility] : : [address] : : [place] : : [id number] : : Phone: [phone] Echocardiogram Report + + :Name: TOMAS RAE Study Date: 08/19/2023 Height: 62 in : :[facility] ReadingLocation: Weight: 112 lb : : Gender: Female BSA: 1.5 m2 : :: 1940 Age: 82 yrs BP: 167/53 mmHg: :Reason For Study: MITRAL REGURGITATION : :Ordering Physician: NATALYA, : :GIOVANNI REID Performed By: Anali Castro : :Referring: GIOVANNI HOANG : + + Interpretation Summary The ejection fraction is estimated to be 40-45%. The right ventricle is normal in size and function. There is moderate to severe mitral regurgitation. Compared to the study 3 days earlier, the left ventricle appears more dynamic and there is a very slight decrease in the mitral regurgitation. Procedure: The study quality was technically limited. The study quality was technically adequate. Comparison is made with the echocardiogram of 08/16/2023. The heart rate ranged between 68-79 bpm during the study. Left Ventricle: The left ventricle is normal in size and wall thickness. The ejection fraction is estimated to be 40-45%. Right Ventricle: The right ventricle is normal in size and function. Atria: The left atrium is severely dilated. Right atrial size is normal. Mitral Valve: The mitral valve leaflets are mildly calcified. There is moderate mitral annular calcification. The mitral valve mean gradient is 6.2 mmHg. There is moderate to severe mitral regurgitation. Tricuspid Valve: The tricuspid valve is normal. MMode/2D Measurements & Calculations LVIDd: 4.7 cm LVIDs: 3.6 cm FS: 23.6 % IVSd: 0.88 cm LVPWd: 0.92 cm LV salas. diameter/BSA (cm/m^2): 3.1 LV sys. diameter/BSA (cm/m^2): 2.4 Doppler Measurements & Calculations MV E max ciro: 144.0 cm/sec MV V2 mean: 113.7 cm/sec MV A max ciro: 115.7 cm/sec MV mean P.7 mmHg MV E/A: 1.2 MV V2 VTI: 42.3 cm Med Peak E' Ciro: 4.5 cm/sec E/E' med: 31.8 Lat Peak E' Ciro: 6.6 cm/sec E/E' lat: 22.0 E/e' average: 26.9 MV dec time: 0.25 sec MR ERO: 0.18 cm2 MR PISA: 3.3 cm2 MR flow rate: 112.7 cm3/sec MR PISA radius: 0.72 cm Reading Physician:04:57 PM
[2023-08-19] MEDS: carvediloL 12.5 MG TABLET 25 MG PO ×2 (13:13→21:33)
[2023-08-19] MEDS: FUROSEMIDE 40 MG TABLET PO (13:25)
[2023-08-19] MEDS: BENZONATATE 100 MG CAPSULE PO (13:27)
--- NOTE | 2023-08-19 15:44 | PM.PN.1 ---
Subjective Subjective Interval history: 82 F admitted with CHF exacerbation, found to have newly reduced EF from normal to now 30-35%. Continues to have dyspnea on exertion though is stable from yesterday after her diuresis was held due to development of an CHELSY. Previous echo recommended repeat limited echo for further valve evaluation which was ordered today. Has wide pulse pressures, but holding amlodipine now for initiation of PO diuretic. Exam Vital Signs (past 8 hours): - 08/19/23 08:05 08/19/23 09:54 08/19/23 11:57 Temperature 98.4 F 96.9 F L Pulse Rate 67 71 Respiratory Rate 15 16 Blood Pressure 163/56 H 167/53 H Pulse Oximetry 100 96 Oxygen Delivery Method Room Air Oxygen Flow Rate 0 0 08/19/23 13:00 Temperature Pulse Rate Respiratory Rate Blood Pressure Pulse Oximetry Oxygen Delivery Method Room Air Oxygen Flow Rate Oxygen Delivery Method Room Air Oxygen Flow Rate 0 Narrative Exam Narrative: GENERAL: This is a well-nourished, well-developed patient, in no apparent distress. EYES: Pupils equal round and reactive. Extraocular motions intact. ENT: Mucous membranes pink and moist. NECK: Supple, nontender, no meningeal signs. CARDIOVASCULAR: Regular rate and rhythm without murmurs, gallops, or rubs. RESPIRATORY: Coarse basilar rales lower 1/3 bilaterally. GASTROINTESTINAL: Abdomen soft, non-tender, nondistended. EXTREMITIES: Trace pedal edema. NEUROLOGIC: Alert, oriented, speech fluent, full upper and lower motor strength, no focal deficits evident. DERMATOLOGIC: No rashes or skin lesions. Objective Labs 08/19/23 05:20 08/19/23 05:20 Labs: Laboratory Results - last 24 hr 08/16/23 08/19/23 08:47 05:20 WBC 8.4 RBC 2.77 L Hgb 8.8 L Hct 25.3 L MCV 91.5 MCH 31.7 MCHC 34.7 RDW 16.2 H Plt Count 313 Neut % (Auto) Not Reportable Lymph % (Auto) Not Reportable [place] % (Auto) Not Reportable Eos % (Auto) Not Reportable Baso % (Auto) Not Reportable Lymph # (Auto) Not Reportable [place] # (Auto) Not Reportable Baso # (Auto) Not Reportable Total Counted 100 Seg Neutrophils % 48.0 Band Neutrophils % 4.0 Lymphocytes % (Manual) 24.0 L Monocytes % (Manual) 15.0 H Eosinophils % (Manual) 7.0 H Basophils % (Manual) 2.0 H Neutrophils # (Manual) 4368 RBC Morphology See below Anisocytosis 1+ H Smear Path Review Sodium 123 L Potassium 3.3 L Chloride 89 L Carbon Dioxide 29 BUN 44 H Creatinine 2.29 H Estimated GFR 21 L BUN/Creatinine Ratio 19.2 Glucose 106 Calcium 8.3 L Total Bilirubin 0.6 AST 30 ALT 28 Alkaline Phosphatase 123 Total Protein 7.7 Albumin 3.6 Globulin 4.1 Albumin/Globulin Ratio 0.9 L [facility] Medical History (Updated 08/18/23 @ 13:51 by Anton Vera MD) CHELSY (acute kidney injury) Coronary artery disease Do not resuscitate CKD stage 3b, GFR 30-44 ml/min Mixed hyperlipidemia Essential hypertension Acute systolic CHF (congestive heart failure) Rheumatoid arthritis Macrocytic anemia Anemia Acute dehydration Orthostatic hypotension Surgical History History of cataract removal with insertion of prosthetic lens Status post hysterectomy Status post hemorrhoidectomy Status post appendectomy Family History Brother Cancer Diabetes mellitus Heart disease Hypertension Hyperlipidemia Brother Cancer Diabetes mellitus Heart disease Hypertension Hyperlipidemia Sister Age: 94 Heart disease Hypertension Hyperlipidemia Social History household members: spouse Smoking Status: Never smoker alcohol intake: current Assessment & Plan Assessment & Plan narrative: (1) Acute systolic CHF (congestive heart failure): - was being diuresed with development of CHELSY during diuresis. CHELSY improved with holding. May need prolonged fluid removal slowly. - will trial on PO lasix today. continue to follow BMP - hyponatremia also stable, likely related to volume overload and should improve with diuretic. (2) CHELSY (acute kidney injury): - improved today withholding diuretic, restarted at lower dose of PO furosemide, continue to follow bmp. (3) CKD stage 3b, GFR 30-44 ml/min: (4) Pleural effusion: - diurese as noted above (5) Possible Coronary artery disease: When clinically compensated as an outpatient, consider noninvasive nuclear medicine perfusion scan. (6) Hyponatremia: - secondary to volume overload, continue to follow with Na stable at 123 will see if further improvement with diuretic. (7) Rheumatoid arthritis: (8) Macrocytic anemia: (9) Essential hypertension: Presenting with hypertensive urgency. Monitor with diuresis and routine medications. It is slightly improved since admission with fluid removal. Continue coreg, furosemide as noted above. Will hold home amlodipine. Losartan on hold for CHELSY but will resume if Cr continues to improve. (10) Mixed hyperlipidemia: - replace home lovastatin with formulary alternative atorvastatin 10 mg at bedtime. Continue today. Code: DNR, surrogate is patient's spouse DVT: Lovenox daily (renal 30 mg dosing) Dispo: patient admitted under inpatient status. Likely discharge home pending above. Anticipate discharge home in 1-2 days. Time-Based Coding :: [TOTAL MINUTES] spent with patient and on the chart (including review of chart, obtaining history, exam, reviewing outside data, placing orders, documenting exam and treatment plan, and counseling patient) on [DATE]. Quality VTE Deep Vein Thrombosis/Pulmonary Embolism Present on Admission: No
[2023-08-19] MEDS: ATORVASTATIN 20 MG TABLET 10 MG PO (21:34)
[2023-08-19] MEDS: diphenhydrAMINE 25 MG TABLET PO (21:35)
[2023-08-20 03:00] VITALS: BP 146/51; PULSE 65; RESP 18; TEMP 36.4; O2SAT 95
[2023-08-20 05:56] LABS: Add Manual Diff / Slide Review NO; Basophils Absolute Auto 100 /uL (0-100); Basophils Percent Auto 0.7 % (0-2); Eosinophils Absolute Auto 400 /uL (0-450); Eosinophils Percent Auto 4.4 % (2-4); Hematocrit 27.1 % (36-46); Hemoglobin 9.2 g/dL (12.0-16.0); Lymphocytes Absolute Auto 2100 /uL (1100-4500); Lymphocytes Percent Auto 23.4 % (25-40); Mean Corpuscular Hemoglobin 31.2 PG (26-34); Mean Corpuscular Volume 91.9 fL (80-100); Monocytes Absolute Auto 1900 /uL (0-900); Monocytes Percent Auto 21.7 % (3-14); Neutrophils Absolute Auto 4400 /uL (1500-7000); Neutrophils Percent Auto 49.8 % (50-75); Platelet Count 319 X10^3/uL (150-400); Red Blood Cell Count 2.95 X10^6/uL (4.0-5.2); Red Cell Distribution Width 16.6 % (11.6-14.8); White Blood Cell Count 8.9 X10^3/uL (4.5-11.0)
[2023-08-20 05:57] LABS: Alanine Aminotransferase 24 IU/L (<35); Albumin 3.8 g/dL (3.5-5.0); Albumin Globulin Ratio 0.9 (1.0-2.8); Alkaline Phosphatase 118 U/L (38-126); Aspartate Aminotransferase 29 IU/L (14-36); BUN Creatinine Ratio 18.1 (6-22); Bilirubin Total 0.7 mg/dL (0.2-1.3); Blood Urea Nitrogen 41 mg/dL (7-17); Calcium 8.2 mg/dL (8.4-10.2); Carbon Dioxide 30 mmol/L (22-32); Chloride 89 mmol/L (98-107); Estimated Glomerular Filt Rate 21 mL/min (>60); Globulin 4.1 g/dL (1.7-4.1); Glucose 103 mg/dL (80-110); HEMOLYSIS < 15 (0-50); Magnesium 1.7 mg/dL (1.6-2.3); Potassium 3.5 mmol/L (3.4-5.1); Sodium 127 mmol/L (137-145); Total Protein 7.9 g/dL (6.3-8.2)
[2023-08-20 07:45] VITALS: BP 162/61; PULSE 74; RESP 15; TEMP 36.4; O2SAT 100
[2023-08-20] MEDS: PANTOPRAZOLE DR 40 MG TABLET PO (09:50)
[2023-08-20] MEDS: LORATADINE 10 MG TABLET PO (09:50)
[2023-08-20] MEDS: FUROSEMIDE 40 MG TABLET PO (09:50)
[2023-08-20] MEDS: FOLIC ACID 1 MG TABLET PO (09:50)
[2023-08-20] MEDS: GABAPENTIN 100 MG CAPSULE PO (09:50)
[2023-08-20] MEDS: carvediloL 12.5 MG TABLET 25 MG PO (09:50)
[2023-08-20] MEDS: FLUTICASONE 120 SPRAY/16 GM SPRAY.SUSP NASAL (09:51)
[2023-08-20] MEDS: ENOXAPARIN 30 MG/0.3 ML SYRINGE SUBCUT (09:54)
--- NOTE | 2023-08-20 10:25 | P.DS_ITS ---
History of Present Illness History of Present Illness Date Patient Seen: 08/20/23 Time Patient Seen: 10:26 Date of Onset of Symptoms: 08/16/23 Chief complaint: Difficulty breathing with cough for months Narrative: Per admitting provider, 82-year-old woman with longstanding coronary artery disease, hypertension, hyperlipidemia, rheumatoid arthritis and macrocytic anemia of unclear etiology presents with progressive shortness of breath. She states this has been present for 2-3 months with harsh intermittent coughing and sharp chest pains, significantly worse over the last 1-2 days, with occasional nausea and vomiting. She sleeps in a bed with her head elevated, and has done so for several years, and denies lower extremity edema or recent weight gain. She is followed by Dr. Jurgen Warner and had an echocardiogram on 09/17/2022 showing ejection fraction 60-65% and moderate mitral regurgitation. Echocardiogram today showed ejection fraction 30-35% with severe mitral regurgitation. She is interviewed at bedside with her Chris, with whom she lives independently in [place]. She is followed by Dr. Nirav Goodman of Rheumatology, Dr. Jacqueline Paredes of Hematology, as well as another doctor at [facility] who she has seen for her anemia, in addition to her primary care provider. Discharge Providers Provider Date of admission: 08/16/23 11:00 Discharge Date: 08/20/23 Primary care physician: CARRIE Jj Consults: 08/16/23 13:50 Consult to Dietitian, Adult Routine Comment: Reason For Exam: chf Discharge provider: Raul Dorsey DO Summary Hospital Course Discharge Diagnosis: (1) Acute systolic CHF (congestive heart failure): (2) CHELSY (acute kidney injury): (3) CKD stage 3b, GFR 30-44 ml/min: (4) Pleural effusion: (5) Possible Coronary artery disease: (6) Hyponatremia: (7) Rheumatoid arthritis: (8) Macrocytic anemia: (9) Essential hypertension: (10) Mixed hyperlipidemia: Hospital Course: This is an 82 year old female who was admitted with heart failure symptoms and dyspnea on exertion. She was not hypoxic. Echo showed a newly reduced EF at 30- 35%, though repeat showed around 40% done to further evaluate moderate to severe mitral regurgitation per initial TTE. She was diuresed with IV furosemide, but developed CHELSY with aggressive diuresis. She had symptomatically improved but remained dyspnic on exertion after about 30 feet. She was also hyponatremic on admission which improved with diuresis. Diuresis was held for one day, then she was restarted on oral furosemide with continued improvement in renal function and sodium. She was asymptomatic from her low sodium level. Due to CHELSY, losartan was held but can resume on discharge. Recommend repeat chemistries with repeat sodium and creatinine in the next couple of days with her primary care provider for ongoing medication management, and continued follow up with her developer support engineer given new systolic failure and further evaluation. Time Spent with Patient Time spent: Greater than 30 minutes Exam Vital Signs (past 8 hours): - 08/20/23 03:00 08/20/23 07:45 Temperature 97.6 F 97.5 F L Pulse Rate 65 74 Respiratory Rate 18 15 Blood Pressure 146/51 H 162/61 H Pulse Oximetry 95 100 Oxygen Flow Rate 0 0 Oxygen Delivery Method Room Air Oxygen Flow Rate 0 Narrative Exam Narrative: GENERAL: This is a well-nourished, well-developed patient, in no apparent distress. EYES: Pupils equal round and reactive. Extraocular motions intact. ENT: Mucous membranes pink and moist. NECK: Supple, nontender, no meningeal signs. CARDIOVASCULAR: Regular rate and rhythm without murmurs, gallops, or rubs. RESPIRATORY: Coarse basilar rales lower 1/3 bilaterally. GASTROINTESTINAL: Abdomen soft, non-tender, nondistended. EXTREMITIES: Trace pedal edema. NEUROLOGIC: Alert, oriented, speech fluent, full upper and lower motor strength, no focal deficits evident. DERMATOLOGIC: No rashes or skin lesions. Objective Labs 08/20/23 05:10 08/20/23 05:10 Labs: Laboratory Results - last 24 hr 08/16/23 08/20/23 08:47 05:10 WBC 8.9 RBC 2.95 L Hgb 9.2 L Hct 27.1 L MCV 91.9 MCH 31.2 MCHC 34.0 RDW 16.6 H Plt Count 319 Neut % (Auto) 49.8 L Lymph % (Auto) 23.4 L [place] % (Auto) 21.7 H Eos % (Auto) 4.4 H Baso % (Auto) 0.7 Neut # (Auto) 4400 Lymph # (Auto) 2100 [place] # (Auto) 1900 H Eos # (Auto) 400 Baso # (Auto) 100 Smear Path Review Sodium 127 L Potassium 3.5 Chloride 89 L Carbon Dioxide 30 BUN 41 H Creatinine 2.26 H Estimated GFR 21 L BUN/Creatinine Ratio 18.1 Glucose 103 Calcium 8.2 L Magnesium 1.7 Total Bilirubin 0.7 AST 29 ALT 24 Alkaline Phosphatase 118 Total Protein 7.9 Albumin 3.8 Globulin 4.1 Albumin/Globulin Ratio 0.9 L [facility] Medical History (Updated 08/18/23 @ 13:51 by Anton Vera MD) CHELSY (acute kidney injury) Coronary artery disease Do not resuscitate CKD stage 3b, GFR 30-44 ml/min Mixed hyperlipidemia Essential hypertension Acute systolic CHF (congestive heart failure) Rheumatoid arthritis Macrocytic anemia Anemia Acute dehydration Orthostatic hypotension Surgical History History of cataract removal with insertion of prosthetic lens Status post hysterectomy Status post hemorrhoidectomy Status post appendectomy Family History Brother Cancer Diabetes mellitus Heart disease Hypertension Hyperlipidemia Brother Cancer Diabetes mellitus Heart disease Hypertension Hyperlipidemia Sister Age: 94 Heart disease Hypertension Hyperlipidemia Social History household members: spouse Smoking Status: Never smoker alcohol intake: current Discharge Plan Discharge Plan Patient Disposition: Home Provider Discharge Comment: You were admitted to the hospital with a heart failure exacerbation and fluid overload. This was taken off with furosemide (lasix). Continue oral furosemide but you may need adjustments over the coming days to weeks as fluid continues to come off. Please follow up with your PCP this week or early next week to repeat labs and possibly adjust medications. You can also help by weighing yourself at roughly the same time every day to keep track of weight changes. Please also see about when your next cardiology visit is, as some things have changed since your last visit with him. You are also okay to restart your losartan tomorrow, if you notice dizziness or low BP at home, I recommend stopping amlodipine to see if there is improvement. Discharge orders & Medications Prescriptions: New furosemide 20 mg tablet 20 mg PO BID 30 Days Qty: 60 0RF Continued epinephrine 0.3 MG/0.3 ML auto-injector 0.3 mg IM X1 Qty: 1 1RF leflunomide 20 mg tablet 20 mg PO DAILY cyclobenzaprine 10 mg tablet 10 - 20 mg PO BEDTIME lovastatin 10 mg tablet 20 mg PO DAILY tramadol 50 mg tablet 50 mg PO Q6H PRN (Reason: Pain (Scale Score 4-6)) gabapentin 100 mg capsule 100 mg PO TID diphenhydramine HCl [Benadryl Allergy] 25 MG tablet 25 mg PO BEDTIME folic acid 1 MG tablet 1 mg PO DAILY amlodipine [Norvasc] 5 mg Tablet 5 mg PO DAILY clopidogrel 75 mg Tablet 75 mg DAILY fexofenadine 180 mg Tablet 180 mg PO DAILY Xanax 0.5 mg PO PRN PRN (Reason: Anxiety) losartan 25 mg Tablet 50 mg PO DAILY carvedilol 25 mg tablet 25 mg PO BID alprazolam 0.5 mg Tablet 0.5 mg PO DAILY PRN (Reason: Anxiety) lidocaine 5 % Cream 1 applic TOPICAL BID PRN (Reason: Pain (Scale Score 1-3)) pantoprazole 40 mg tablet,delayed release (DR/EC) 40 mg PO DAILY Premarin 0.625 mg tablet 0.625 mg PO DAILY sertraline 25 mg tablet 25 mg PO DAILY halobetasol propionate 0.05 % Cream 1 applic TOPICAL DAILY lorazepam 1 mg Tablet 1 mg PO DAILY PRN (Reason: Anxiety) Follow up/Referrals: Mckenzie Gomez ARNP [Primary Care Provider] - (Aida Gomez alerted that you need a follow up appointment with in a week of discharge they will call you with this appointment date and time ) Diet/Activity/Treatments Diet: Diet as Tolerated and Low-sodium Diet comment: 1.5 L fluid restriction / 24 hours ideally Activity: As tolerated, no restrictions Visit Report/Discharge Packet Instructions: Heart Failure, DI for Heart Failure, Furosemide Stand Alone Forms: Patient Portal/API, Stroke Signs & Symptoms Discharge Data Primary Care Provider: Mckenzie Gomez Quality VTE Deep Vein Thrombosis/Pulmonary Embolism Present on Admission: No
== END 2023-08-20 11:24 | disposition home or self-care (01) | DRG 291 ==
LOC: ED 10:58 → AC 11:23
PROVIDERS: Internal Medicine; Admitting Provider Internal Medicine; Emergency Provider Emergency Medicine; PCP Nurse Practitioner Family; Referring Provider Emergency Medicine; Visit Provider Internal Medicine
DX: I13.0 Hypertensive heart and chronic kidney disease with heart failure and stage 1 through stage 4 chronic kidney disease, or unspecified chronic kidney disease (principal); I50.21 Acute systolic (congestive) heart failure; E87.1 Hypo-osmolality and hyponatremia; N17.9 Acute kidney failure, unspecified; I25.10 Atherosclerotic heart disease of native coronary artery without angina pectoris; M06.9 Rheumatoid arthritis, unspecified; D53.9 Nutritional anemia, unspecified; E78.2 Mixed hyperlipidemia; N18.32 Chronic kidney disease, stage 3b; I16.0 Hypertensive urgency; Z66 Do not resuscitate
CPT/HCPCS: 36415; 71045; 71275; 80048; 80053; 82550; 83690; 83735; 83880; 84484; 85007; 85025; 85379; 87633; 93005; 93306; 93307; 96374; 96375; 99284; J0360; J1200; J1650; J1940; J2919; Q9967

== ENCOUNTER → 2023-09-06 14:01 | Outpatient (CLI) | payer MEDICARE, OTHER, SELFPAY ==
[2023-08-16 11:53] VITALS: BMI 21.3
[2023-09-06 15:26] LABS: BUN Creatinine Ratio 18.5 (6-22); Blood Urea Nitrogen 48 mg/dL (7-17); Calcium 8.4 mg/dL (8.4-10.2); Carbon Dioxide 27 mmol/L (22-32); Chloride 88 mmol/L (98-107); Estimated Glomerular Filt Rate 18 mL/min (>60); Glucose 103 mg/dL (80-110); HEMOLYSIS < 15 (0-50); Potassium 4.1 mmol/L (3.4-5.1); Sodium 124 mmol/L (137-145)
== END ==
PROVIDERS: PCP Nurse Practitioner Family; Referring Provider Nurse Practitioner; Visit Provider Nurse Practitioner
DX: I50.20 Unspecified systolic (congestive) heart failure (principal); I34.0 Nonrheumatic mitral (valve) insufficiency
CPT/HCPCS: 36415; 80048

== ENCOUNTER 2023-09-08 13:24 | Emergency (ER) | payer MEDICARE, OTHER, SELFPAY ==
[2023-08-16 11:53] VITALS: BMI 21.3
[2023-09-08] VITALS (8 sets, daily range): BP systolic 144–173; BP diastolic 63–72; PULSE 60–75; RESP 13–18; TEMP 36.4; O2SAT 91–99; BMI 18.8
--- NOTE | 2023-09-08 13:59 | ED_ITS ---
HPI - URI/Sore Throat <Inga Rodgers PA-C - Last Filed: 09/08/23 15:45> General Chief Complaint: Upper Respiratory Symptoms Stated Complaint: congestion, not feeling well Time Seen by Provider: 09/08/23 13:39 Source: patient Mode of arrival: Wheelchair History of Present Illness HPI Narrative: 83-year-old woman with a history of hypertension, CHF, CHELSY CAD CKD stage IIIB presents today with concern for nasal congestion and sinus congestion for 3 days with postnasal drip that has been making it difficult to sleep. Patient states she feels she is having drainage from her nose into her throat that is irrita ting and triggering her to cough. She does acknowledge she has had a chronic cough for about 5 months which she has been seen for and has tried multiple things for treating this. In the last 3 days she is tried NyQuil with limited improvement in her symptoms. Patient actually states her chronic cough has been a little bit better recently. She has been having pain in her left sinus in her cheek she is unsure exactly for how long but states this is something that is new it has not been part of her other chronic symptoms. She denies other new symptoms or concerns including shortness of breath, chest pain, sore throat, headaches, worsened cough, fevers, chills or other. Related Data Home Medications Medication Instructions Recorded Confirmed cyclobenzaprine 10 mg tablet 10 - 20 mg PO BEDTIME 07/10/18 08/16/23 diphenhydramine HCl 25 mg tablet 25 mg PO BEDTIME 07/10/18 08/16/23 (Benadryl Allergy) folic acid 1 mg tablet 1 mg PO DAILY 07/10/18 08/16/23 gabapentin 100 mg capsule 100 mg PO TID 07/10/18 08/16/23 leflunomide 20 mg tablet 20 mg PO DAILY 07/10/18 08/16/23 lovastatin 10 mg tablet 20 mg PO DAILY 07/10/18 08/16/23 tramadol 50 mg tablet 50 mg PO Q6H PRN Pain (Scale Score 07/10/18 08/16/23 4-6) amlodipine 5 mg tablet (Norvasc) 5 mg PO DAILY 07/30/19 08/16/23 Xanax 0.5 mg PO PRN PRN Anxiety 04/28/20 08/16/23 clopidogrel 75 mg tablet 75 mg DAILY 04/28/20 08/16/23 fexofenadine 180 mg tablet 180 mg PO DAILY 04/28/20 08/16/23 losartan 25 mg tablet 50 mg PO DAILY 08/01/20 08/16/23 alprazolam 0.5 mg tablet 0.5 mg PO DAILY PRN Anxiety 08/16/23 08/16/23 carvedilol 25 mg tablet 25 mg PO BID 08/16/23 08/16/23 conjugated estrogens 0.625 mg 0.625 mg PO DAILY 08/16/23 08/16/23 tablet (Premarin) halobetasol propionate 0.05 % 1 applic topical DAILY 08/16/23 08/16/23 topical cream lidocaine 5 % topical cream 1 applic topical BID PRN Pain 08/16/23 08/16/23 (Scale Score 1-3) lorazepam 1 mg tablet 1 mg PO DAILY PRN Anxiety 08/16/23 08/16/23 pantoprazole 40 mg tablet,delayed 40 mg PO DAILY 08/16/23 08/16/23 release sertraline 25 mg tablet 25 mg PO DAILY 08/16/23 08/16/23 Previous Rx's Medication Instructions Recorded epinephrine 0.3 mg/0.3 mL 0.3 mg (0.3 mL) IM X1 ##1 02/29/16 injection, auto-injector furosemide 20 mg tablet 20 mg PO BID 30 days #60 tabs 08/20/23 benzonatate 100 mg capsule 100 mg PO TID PRN cough #21 caps 09/08/23 fluticasone furoate 27.5 1 spray intranasal DAILY #5.9 mL 09/08/23 mcg/actuation nasal spray,suspension Allergies Allergy/AdvReac Type Severity Reaction Status Date / Time ciprofloxacin [CIPROFLOXACIN] Allergy Severe Anaphylaxis Verified 09/08/23 13:34 doxycycline [DOXYCYCLINE] Allergy Severe Anaphylaxis Verified 09/08/23 13:34 hydrocodone [From VICODIN] Allergy Severe Anaphylaxis Verified 09/08/23 13:34 penicillin V [From PEN-VEE K] Allergy Severe Anaphylaxis Verified 09/08/23 13:34 shrimp Allergy Severe Anaphylaxis Verified 09/08/23 13:34 erythromycin base Allergy Unknown Verified 09/08/23 13:34 [ERYTHROMYCIN BASE] iodine Allergy Unknown ITCHING Verified 09/08/23 13:34 Review of Systems <Inga Rodgers PA-C - Last Filed: 09/08/23 15:45> Review of Systems Narrative: See HPI Patient History <Inga Rodgers PA-C - Last Filed: 09/08/23 15:45> Medical History CHELSY (acute kidney injury) Coronary artery disease Do not resuscitate CKD stage 3b, GFR 30-44 ml/min Mixed hyperlipidemia Essential hypertension Acute systolic CHF (congestive heart failure) Rheumatoid arthritis Macrocytic anemia Anemia Acute dehydration Orthostatic hypotension Surgical History History of cataract removal with insertion of prosthetic lens Status post hysterectomy Status post hemorrhoidectomy Status post appendectomy Family History Brother Cancer Diabetes mellitus Heart disease Hypertension Hyperlipidemia Brother Cancer Diabetes mellitus Heart disease Hypertension Hyperlipidemia Sister Age: 94 Heart disease Hypertension Hyperlipidemia Social History household members: spouse Smoking Status: Never smoker alcohol intake: current Smoking Status: Never smoker alcohol intake frequency: holidays/special occasions only Substance Use Type: marijuana Exam <Inga Rodgers PA-C - Last Filed: 09/08/23 15:45> Narrative Exam Narrative: GENERAL: [83] year old patient appears stated age. Slim patient, in mild distress. HEAD: Atraumatic. Normocephalic. EYES: Pupils equal round and reactive. Extraocular motions intact. No scleral icterus. No injection or drainage. ENT: Nose without bleeding, purulent drainage. Throat with mild erythema, without tonsillar hypertrophy or exudate, uvula midline. Airway patent. Slight maxilary sinus tenderness on the left with percussion bilateral ear canals normal in appearance, TMs pearly olsen with cone of light visible. NECK: Trachea midline. Non tender CARDIOVASCULAR: Regular rate and rhythm without murmurs, gallops, or rubs. RESPIRATORY: Coarse lung sounds on auscultation. Breath sounds equal bilaterally. No wheezes, rales, or rhonchi. GASTROINTESTINAL: Abdomen nondistended. EXTREMITIES: No edema or joint tenderness. BACK: Nontender without deformity or crepitance. No flank tenderness. NEURO: AOx3. SKIN: No rash or erythema of visible areas Initial Vital Signs Initial Vital Signs: Vital Signs Temperature 97.6 F 09/08/23 13:30 Pulse Rate 62 09/08/23 13:30 Respiratory Rate 18 09/08/23 13:30 Blood Pressure 147/67 H 09/08/23 13:30 Pulse Oximetry 99 09/08/23 13:30 Oxygen Delivery Method Room Air 09/08/23 13:30 <Cat Duran DO - Last Filed: 09/10/23 18:13> Initial Vital Signs Initial Vital Signs: Vital Signs Temperature 97.6 F 09/08/23 13:30 Pulse Rate 62 09/08/23 13:30 Respiratory Rate 18 09/08/23 13:30 Blood Pressure 147/67 H 09/08/23 13:30 Pulse Oximetry 99 09/08/23 13:30 Oxygen Delivery Method Room Air 09/08/23 13:30 Course <Inga Rodgers PA-C - Last Filed: 09/08/23 15:45> Orders Ordered: ED Orders 09/08/23 13:36 Covid-19 + FLU A/B + RSV - PCR Stat Vital Signs Vital signs: Vital Signs - 8 hr 09/08/23 13:30 09/08/23 13:41 09/08/23 13:42 Temperature 97.6 F Pulse Rate 62 75 Respiratory Rate 18 Blood Pressure 147/67 H 144/63 H Pulse Oximetry 99 91 Oxygen Delivery Method Room Air 09/08/23 13:42 09/08/23 14:00 09/08/23 14:01 Temperature Pulse Rate 73 61 Respiratory Rate 13 Blood Pressure 168/72 H Pulse Oximetry 93 99 Oxygen Delivery Method 09/08/23 14:01 09/08/23 14:30 09/08/23 14:30 Temperature Pulse Rate 60 63 Respiratory Rate 15 18 Blood Pressure 173/72 H Pulse Oximetry 99 95 Oxygen Delivery Method 09/08/23 15:00 09/08/23 15:01 09/08/23 15:01 Temperature Pulse Rate 69 66 Respiratory Rate 17 15 Blood Pressure 147/66 H Pulse Oximetry 93 97 Oxygen Delivery Method <DO Robert Zacarias Last Filed: 09/10/23 18:13> Orders Ordered: ED Orders 09/08/23 13:36 Covid-19 + FLU A/B + RSV - PCR Stat Vital Signs Vital signs: Vital Signs - 8 hr 09/08/23 13:30 09/08/23 13:41 09/08/23 13:42 Temperature 97.6 F Pulse Rate 62 75 Respiratory Rate 18 Blood Pressure 147/67 H 144/63 H Pulse Oximetry 99 91 Oxygen Delivery Method Room Air 09/08/23 13:42 09/08/23 14:00 09/08/23 14:01 Temperature Pulse Rate 73 61 Respiratory Rate 13 Blood Pressure 168/72 H Pulse Oximetry 93 99 Oxygen Delivery Method 09/08/23 14:01 09/08/23 14:30 09/08/23 14:30 Temperature Pulse Rate 60 63 Respiratory Rate 15 18 Blood Pressure 173/72 H Pulse Oximetry 99 95 Oxygen Delivery Method 09/08/23 15:00 09/08/23 15:01 09/08/23 15:01 Temperature Pulse Rate 69 66 Respiratory Rate 17 15 Blood Pressure 147/66 H Pulse Oximetry 93 97 Oxygen Delivery Method MDM - URI/Sore Throat <Inga Rodgers PA-C - Last Filed: 09/08/23 15:45> Differential Diagnosis Differential diagnosis: Likely upper respiratory infection, sinusitis, viral infection and other (Postnasal drip, congestion) Lab Data Attestation: I reviewed the patient's lab results. Labs: Lab Results 09/08/23 Range/Units 13:36 SARS-CoV-2 (PCR) Negative (Negative) Influenza A (RT-PCR) Flu a negative (NEGATIVE) Influenza B (RT-PCR) Flu b negative (NEGATIVE) RSV (PCR) Negative (Negative) [facility] Narrative Medical decision making narrative: This is an 83-year-old woman with multiple comorbidities, history of chronic cough for 5 months, CHELSY, CAD, CKD hyperlipidemia and hypertension and CHF presenting with concern for nasal congestion and postnasal drip for the past 3-4 days keeping her up at night. She has no concern for other worsening symptoms and I am not suspicious for acute illness. Discussed with the patient and she is not interested in pursuing a detailed workup with imaging and labs today, I think this is very reasonable given her current complaint is isolated to her sinuses and postnasal drip. We discussed options, she has been using azelastine and did try NyQuil with limited effect. It is possible that she does have a bacterial sinusitis however her sinus symptoms have really only been going on for 3 or 4 days and it seems premature to consider antibiotics for this, recommend she try Flonase for up to 3-5 days maximum to see if this improves her left-sided sinus congestion. Also recommend trying benzonatate for cough and throat irritation which may help with her postnasal drip symptoms. Patient did have labs done with a chemistry panel 2 days ago and this was reviewed and appears to be generally at baseline for the patient. She is chronically hyponatremic with poor kidney function. Patient endorsed no other new or concerning symptoms today and additional workup and labs were not obtained. Did discuss this patient with attending physician Dr Duran. Return precautions provided, follow-up plan discussed, all questions answered. <Cat Duarn, DO - Last Filed: 09/10/23 18:13> Lab Data Labs: Lab Results 09/08/23 Range/Units 13:36 SARS-CoV-2 (PCR) Negative (Negative) Influenza A (RT-PCR) Flu a negative (NEGATIVE) Influenza B (RT-PCR) Flu b negative (NEGATIVE) RSV (PCR) Negative (Negative) Discharge Plan Departure Patient Disposition: Home Clinical Impression: PND (post-nasal drip), Nasal sinus congestion Activity Restrictions/Additional Instructions: *You have been diagnosed with [ ] *What to do: *Please continue to take your regular medications as directed. [ 2] New medication prescriptions sent to your pharmacy: [Benzonatate, fluticasone] [ ] New medication written as a paper prescription [ ] No new medications given *Please follow up with your primary care provider in 2-3 days, call for an appointment. Let them know you were seen in the Emergency Department and that we ask that you be seen in follow up. We will electronically transmit a record of today's note if your PCP is in our system. You came in today with concern for sinus congestion and some postnasal drip that has been making it difficult to sleep for the last 3 or 4 days. I know you have been trying some various things to help with your cough symptoms which have been chronic and have been using azelastine nasal spray, I would like you to try using fluticasone nasal spray which is a nasal decongestant that will probably dry things up for you you should not use this for more than 3-5 days in a row before taking a break from it because it can cause rebound worse congestion a few continue to use it every day. I have also prescribed a medicine called benzonatate which can help with throat irritation and coughing to see if this will help to reduce your symptoms as well. You were tested today for COVID flu a flu B and RSV and these all came back negative. I hope these medications improve your symptoms and you feel better soon. *If you do not have a primary care provider please contact the [facility] Resource line at [phone]. They will ask some questions about your medical history and help get you set up with a doctor in the community. *Return to Emergency Department if you should have any new, worsening or concerning symptoms, such as [fever greater than 101 F, shaking chills, wor sening pain, persistent vomiting or other bothersome symptoms] Prescriptions: New fluticasone furoate 27.5 mcg/actuation spray,suspension 1 spray intranasal DAILY Qty: 5.9 0RF Rx Instructions: into each nostril benzonatate 100 mg capsule 100 mg PO TID PRN (Reason: cough) Qty: 21 1RF No Action epinephrine 0.3 MG/0.3 ML auto-injector 0.3 mg IM X1 Qty: 1 1RF leflunomide 20 mg tablet 20 mg PO DAILY cyclobenzaprine 10 mg tablet 10 - 20 mg PO BEDTIME lovastatin 10 mg tablet 20 mg PO DAILY tramadol 50 mg tablet 50 mg PO Q6H PRN (Reason: Pain (Scale Score 4-6)) gabapentin 100 mg capsule 100 mg PO TID diphenhydramine HCl [Benadryl Allergy] 25 MG tablet 25 mg PO BEDTIME folic acid 1 MG tablet 1 mg PO DAILY amlodipine [Norvasc] 5 mg Tablet 5 mg PO DAILY clopidogrel 75 mg Tablet 75 mg DAILY fexofenadine 180 mg Tablet 180 mg PO DAILY Xanax 0.5 mg PO PRN PRN (Reason: Anxiety) losartan 25 mg Tablet 50 mg PO DAILY carvedilol 25 mg tablet 25 mg PO BID alprazolam 0.5 mg Tablet 0.5 mg PO DAILY PRN (Reason: Anxiety) lidocaine 5 % Cream 1 applic TOPICAL BID PRN (Reason: Pain (Scale Score 1-3)) pantoprazole 40 mg tablet,delayed release (DR/EC) 40 mg PO DAILY Premarin 0.625 mg tablet 0.625 mg PO DAILY sertraline 25 mg tablet 25 mg PO DAILY halobetasol propionate 0.05 % Cream 1 applic TOPICAL DAILY lorazepam 1 mg Tablet 1 mg PO DAILY PRN (Reason: Anxiety) furosemide 20 mg tablet 20 mg PO BID 30 Days Qty: 60 0RF Referrals: Mckenzie Gomez, CARRIE [Primary Care Provider] - Stand Alone Forms: Patient Portal/API ED Sign-out <Cat Duran DO - Last Filed: 09/10/23 18:13> Cosign ED Attending Cosignature Attestation: I was immediately available in the department for consultation.
[2023-09-08 14:22] LABS: Influenza A - CEPHEID Flu A NEGATIVE (NEGATIVE); Influenza B - CEPHEID Flu B NEGATIVE (NEGATIVE); Respiratory Syncytial Virus Negative (Negative)
[2023-09-08 14:25] LABS: COVID-19 CEPHEID 4-PLEX PCR Negative (Negative)
== END 2023-09-08 15:24 | disposition home or self-care (01) ==
PROVIDERS: Emergency Medicine; Emergency Provider Student in an Organized Health Care Education/Training Program; PCP Nurse Practitioner Family
DX: R09.82 Postnasal drip (principal); R09.81 Nasal congestion; Z79.899 Other long term (current) drug therapy; Z11.52 Encounter for screening for COVID-19
CPT/HCPCS: 0241U; 36415; 99282

== ENCOUNTER 2023-09-15 17:59 | Emergency (ER) | payer MEDICARE, OTHER, SELFPAY ==
[2023-08-16 11:53] VITALS: BMI 21.3
[2023-09-15] VITALS (14 sets, daily range): BP systolic 154–216; BP diastolic 74–91; PULSE 68–81; RESP 14–30; TEMP 36.4; O2SAT 98–100; BMI 20.1
--- NOTE | 2023-09-15 18:14 | DI.RAD.S_ITS ---
PROCEDURE: XR CHEST 1V INDICATIONS: chest pain TECHNIQUE: One view of the chest was acquired. COMPARISON: [facility], CR, XR CHEST 1V, 08/16/2023, 8:54. FINDINGS: Surgical changes and devices: Patient is status post reverse left shoulder arthroplasty. Lungs and pleura: Lungs are clear. No pleural effusions or pneumothorax. Mediastinum: Mediastinal contours appear normal. Heart size is normal. Bones and chest wall: No suspicious bony lesions. Overlying soft tissues appear unremarkable. IMPRESSION: No acute cardiopulmonary pathology. Dictated by: Dwain Rodriguez M.D. on 09/15/2023 at 18:55 Approved by: Dwain Rodriguez M.D. on 09/15/2023 at 18:56
--- NOTE | 2023-09-15 18:24 | EKG_ITS ---
[address] [address] Test Date: 2023-09-15 Pat Name: Kathia South Department: Room: Gender: Female Loan Operations Manager: ELIZABETH : 1940 Requested By: Order Number: [id number] Reading MD: Haroldo Lew Measurements Intervals [employer] Rate: 81 P: 64 ND: 176 QRS: 37 QRSD: 72 T: 63 QT: 370 QTc: 429 Interpretive Statements Normal sinus rhythm Minimal voltage criteria for LVH, may be normal variant ( Sokolow-Fitch ) Electronically Signed On 09-16-2023 7:28:24 PDT by Haroldo Lew
[2023-09-15 18:37] LABS: INR 0.9 (0.9-1.3); Prothrombin Time 10.7 SECONDS (9.4-12.5)
[2023-09-15 18:39] LABS: Add Manual Diff / Slide Review NO; Basophils Absolute Auto 100 /uL (0-100); Basophils Percent Auto 0.7 % (0-2); Eosinophils Absolute Auto 300 /uL (0-450); Eosinophils Percent Auto 3.3 % (2-4); Hematocrit 24.6 % (36-46); Hemoglobin 8.3 g/dL (12.0-16.0); Lymphocytes Absolute Auto 1500 /uL (1100-4500); Lymphocytes Percent Auto 15.3 % (25-40); Mean Corpuscular HGB Conc 33.8 % (30-36); Mean Corpuscular Hemoglobin 31.4 PG (26-34); Mean Corpuscular Volume 92.7 fL (80-100); Monocytes Absolute Auto 1400 /uL (0-900); Monocytes Percent Auto 13.7 % (3-14); Neutrophils Absolute Auto 6700 /uL (1500-7000); Platelet Count 288 X10^3/uL (150-400); Red Blood Cell Count 2.65 X10^6/uL (4.0-5.2); White Blood Cell Count 10.1 X10^3/uL (4.5-11.0)
[2023-09-15 18:40] LABS: PTT Partial Thromboplastin Tim 35 SECONDS (25.1-36.5)
[2023-09-15 18:44] LABS: Alanine Aminotransferase 27 IU/L (<35); Albumin 3.7 g/dL (3.5-5.0); Albumin Globulin Ratio 0.9 (1.0-2.8); Alkaline Phosphatase 156 U/L (38-126); Aspartate Aminotransferase 41 IU/L (14-36); BUN Creatinine Ratio 22.6 (6-22); Bilirubin Total 0.7 mg/dL (0.2-1.3); Blood Urea Nitrogen 52 mg/dL (7-17); Calcium 8.6 mg/dL (8.4-10.2); Carbon Dioxide 23 mmol/L (22-32); Chloride 95 mmol/L (98-107); Creatine Kinase 63 U/L (30-135); Estimated Glomerular Filt Rate 21 mL/min (>60); Globulin 4.2 g/dL (1.7-4.1); Glucose 103 mg/dL (80-110); HEMOLYSIS < 15 (0-50); Lipase 117 U/L (23-300); Magnesium 2.2 mg/dL (1.6-2.3); Potassium 3.8 mmol/L (3.4-5.1); Sodium 125 mmol/L (137-145); Total Protein 7.9 g/dL (6.3-8.2)
[2023-09-15] MEDS: ASPIRIN 81 MG CHEW TAB 324 MG PO (18:46)
[2023-09-15 18:55] LABS: NT-proBNP (BNP-Adult 18+) 6890 pg/mL (<450); Troponin I < 0.012 ng/mL (0.01-0.034)
--- NOTE | 2023-09-15 19:10 | ED_ITS ---
HPI - Chest Pain General Chief Complaint: Chest Pain Stated Complaint: Light-Headed, SoB, Chest is heavy Time Seen by Provider: 09/15/23 18:27 Source: patient Mode of arrival: Wheelchair Limitations: no limitations History of Present Illness HPI narrative: 83-year-old female with PMH HTN, CHF, CKD, chronic sinus congestion presents for dyspnea and chest pain since 12 today. Patient states she always feels short of breath because of her chronic sinus issues, but it may be a bit worse today. She is concerned that she may have fluid on her lungs again Related Data Home Medications Medication Instructions Recorded Confirmed cyclobenzaprine 10 mg tablet 10 - 20 mg PO BEDTIME 07/10/18 08/16/23 diphenhydramine HCl 25 mg tablet 25 mg PO BEDTIME 07/10/18 08/16/23 (Benadryl Allergy) folic acid 1 mg tablet 1 mg PO DAILY 07/10/18 08/16/23 gabapentin 100 mg capsule 100 mg PO TID 07/10/18 08/16/23 leflunomide 20 mg tablet 20 mg PO DAILY 07/10/18 08/16/23 lovastatin 10 mg tablet 20 mg PO DAILY 07/10/18 08/16/23 tramadol 50 mg tablet 50 mg PO Q6H PRN Pain (Scale Score 07/10/18 08/16/23 4-6) amlodipine 5 mg tablet (Norvasc) 5 mg PO DAILY 07/30/19 08/16/23 Xanax 0.5 mg PO PRN PRN Anxiety 04/28/20 08/16/23 clopidogrel 75 mg tablet 75 mg DAILY 04/28/20 08/16/23 fexofenadine 180 mg tablet 180 mg PO DAILY 04/28/20 08/16/23 losartan 25 mg tablet 50 mg PO DAILY 08/01/20 08/16/23 alprazolam 0.5 mg tablet 0.5 mg PO DAILY PRN Anxiety 08/16/23 08/16/23 carvedilol 25 mg tablet 25 mg PO BID 08/16/23 08/16/23 conjugated estrogens 0.625 mg 0.625 mg PO DAILY 08/16/23 08/16/23 tablet (Premarin) halobetasol propionate 0.05 % 1 applic topical DAILY 08/16/23 08/16/23 topical cream lidocaine 5 % topical cream 1 applic topical BID PRN Pain 08/16/23 08/16/23 (Scale Score 1-3) lorazepam 1 mg tablet 1 mg PO DAILY PRN Anxiety 08/16/23 08/16/23 pantoprazole 40 mg tablet,delayed 40 mg PO DAILY 08/16/23 08/16/23 release sertraline 25 mg tablet 25 mg PO DAILY 08/16/23 08/16/23 Previous Rx's Medication Instructions Recorded epinephrine 0.3 mg/0.3 mL 0.3 mg (0.3 mL) IM X1 ##1 02/29/16 injection, auto-injector furosemide 20 mg tablet 20 mg PO BID 30 days #60 tabs 08/20/23 benzonatate 100 mg capsule 100 mg PO TID PRN cough #21 caps 09/08/23 fluticasone furoate 27.5 1 spray intranasal DAILY #5.9 mL 09/08/23 mcg/actuation nasal spray,suspension Allergies Allergy/AdvReac Type Severity Reaction Status Date / Time ciprofloxacin [CIPROFLOXACIN] Allergy Severe Anaphylaxis Verified 09/15/23 18:14 doxycycline [DOXYCYCLINE] Allergy Severe Anaphylaxis Verified 09/15/23 18:14 hydrocodone [From VICODIN] Allergy Severe Anaphylaxis Verified 09/15/23 18:14 penicillin V [From PEN-VEE K] Allergy Severe Anaphylaxis Verified 09/15/23 18:14 shrimp Allergy Severe Anaphylaxis Verified 09/15/23 18:14 erythromycin base Allergy Unknown Verified 09/15/23 18:14 [ERYTHROMYCIN BASE] iodine Allergy Unknown ITCHING Verified 09/15/23 18:14 Patient History Medical History CHELSY (acute kidney injury) Coronary artery disease Do not resuscitate CKD stage 3b, GFR 30-44 ml/min Mixed hyperlipidemia Essential hypertension Acute systolic CHF (congestive heart failure) Rheumatoid arthritis Macrocytic anemia Anemia Acute dehydration Orthostatic hypotension Surgical History History of cataract removal with insertion of prosthetic lens Status post hysterectomy Status post hemorrhoidectomy Status post appendectomy Family History Brother Cancer Diabetes mellitus Heart disease Hypertension Hyperlipidemia Brother Cancer Diabetes mellitus Heart disease Hypertension Hyperlipidemia Sister Age: 94 Heart disease Hypertension Hyperlipidemia Social History household members: spouse Smoking Status: Never smoker alcohol intake: current Smoking Status: Never smoker alcohol intake frequency: holidays/special occasions only Substance Use Type: marijuana Exam Initial Vital Signs Initial Vital Signs: Vital Signs Temperature 97.6 F 09/15/23 18:08 Pulse Rate 75 09/15/23 18:08 Respiratory Rate 16 09/15/23 18:08 Blood Pressure 181/74 H 09/15/23 18:08 Pulse Oximetry 99 09/15/23 18:08 Oxygen Delivery Method Room Air 09/15/23 18:08 Const: Awake, alert, frail, appears chronically unwell Cardiac: regular rate, regular rhythm RESP: unlabored, clear bilaterally, no wheezing MSK: no edema, full range of motion, pulses equal Skin: Warm, Dry, intact, no rashes Neuro: AO x3, CN II-XII grossly intact, moves all extremities Course Orders Ordered: Discontinued Medications Aspirin (Aspirin 81 Mg Chew Tab) 324 mg PO NOW ONE Stop: 09/15/23 18:15 Last Admin: 09/15/23 18:46 Dose: 324 mg Documented By: KAMALA Hydralazine HCl (Hydralazine 20 Mg/Ml Vial) 10 mg IV NOW ONE Stop: 09/15/23 19:11 Last Admin: 09/15/23 19:21 Dose: 10 mg Documented By: ERIC Vital Signs Vital signs: Vital Signs - 8 hr 09/15/23 18:08 09/15/23 18:28 09/15/23 18:30 Temperature 97.6 F Pulse Rate 75 71 71 Respiratory Rate 16 19 Blood Pressure 181/74 H Pulse Oximetry 99 100 98 Oxygen Delivery Method Room Air 09/15/23 19:00 09/15/23 19:01 09/15/23 19:01 Temperature Pulse Rate 77 74 Respiratory Rate 19 22 Blood Pressure 216/91 H Pulse Oximetry 98 98 Oxygen Delivery Method 09/15/23 19:21 09/15/23 19:29 09/15/23 19:29 Temperature Pulse Rate 68 74 Respiratory Rate 14 Blood Pressure 216/91 H 172/81 H Pulse Oximetry 99 Oxygen Delivery Method 09/15/23 19:30 09/15/23 19:31 09/15/23 19:31 Temperature Pulse Rate 74 75 Respiratory Rate 17 25 H Blood Pressure 185/77 H Pulse Oximetry 99 99 Oxygen Delivery Method 09/15/23 20:00 09/15/23 20:02 09/15/23 20:02 Temperature Pulse Rate 81 79 Respiratory Rate 30 H Blood Pressure 204/81 H Pulse Oximetry 99 99 Oxygen Delivery Method 09/15/23 20:30 09/15/23 20:30 Temperature Pulse Rate 76 Respiratory Rate 25 H Blood Pressure 174/77 H Pulse Oximetry 98 Oxygen Delivery Method MDM - Chest Pain Differential Diagnosis Differential diagnosis: Likely pneumothorax, atypical chest pain and costochondritis Lab Data 09/15/23 18:20 09/15/23 18:20 Labs: Lab Results 09/15/23 Range/Units 18:20 WBC 10.1 (4.5-11.0) X10^3/uL RBC 2.65 L (4.0-5.2) X10^6/uL Hgb 8.3 L (12.0-16.0) g/dL Hct 24.6 L (36-46) % MCV 92.7 (80-100) fL MCH 31.4 (26-34) PG MCHC 33.8 (30-36) % RDW 16.0 H (11.6-14.8) % Plt Count 288 (150-400) X10^3/uL Neut % (Auto) 67.0 (50-75) % Lymph % (Auto) 15.3 L (25-40) % [place] % (Auto) 13.7 (3-14) % Eos % (Auto) 3.3 (2-4) % Baso % (Auto) 0.7 (0-2) % Neut # (Auto) 6700 (4631-1635) /uL Lymph # (Auto) 1500 (6827-1662) /uL [place] # (Auto) 1400 H (0-900) /uL Eos # (Auto) 300 (0-450) /uL Baso # (Auto) 100 (0-100) /uL PT 10.7 (9.4-12.5) SECONDS INR 0.9 (0.9-1.3) APTT 35 (25.1-36.5) SECONDS Sodium 125 L (137-145) mmol/L Potassium 3.8 (3.4-5.1) mmol/L Chloride 95 L (98-107) mmol/L Carbon Dioxide 23 (22-32) mmol/L BUN 52 H (7-17) mg/dL Creatinine 2.30 H (0.52-1.04) mg/dL Estimated GFR 21 L (>60) mL/min BUN/Creatinine Ratio 22.6 H (6-22) Glucose 103 (80-110) mg/dL Calcium 8.6 (8.4-10.2) mg/dL Magnesium 2.2 (1.6-2.3) mg/dL Total Bilirubin 0.7 (0.2-1.3) mg/dL AST 41 H (14-36) IU/L ALT 27 (<35) IU/L Alkaline Phosphatase 156 H (38-126) U/L Total Creatine Kinase 63 (30-135) U/L Troponin I < 0.012 (0.01-0.034) ng/mL NT-Pro-B Natriuret Pep 6890 H (<450) pg/mL Total Protein 7.9 (6.3-8.2) g/dL Albumin 3.7 (3.5-5.0) g/dL Globulin 4.2 H (1.7-4.1) g/dL Albumin/Globulin Ratio 0.9 L (1.0-2.8) Lipase 117 (23-300) U/L Imaging Data Chest x-ray: Radiologist's Impression: PROCEDURE: XR CHEST 1V INDICATIONS: chest pain TECHNIQUE: One view of the chest was acquired. COMPARISON: [facility], CR, XR CHEST 1V, 08/16/2023, 8:54. FINDINGS: Surgical changes and devices: Patient is status post reverse left shoulder arthroplasty. Lungs and pleura: Lungs are clear. No pleural effusions or pneumothorax. Mediastinum: Mediastinal contours appear normal. Heart size is normal. Bones and chest wall: No suspicious bony lesions. Overlying soft tissues appear unremarkable. IMPRESSION: No acute cardiopulmonary pathology. Dictated by: Dwain Rodriguez M.D. on 09/15/2023 at 18:55 Approved by: Dwain Rodriguez M.D. on 09/15/2023 at 18:56 MDM Narrative Medical decision making narrative: Chronically unwell appearing but not acutely toxic patient presenting for shortness of breath that is slightly worse than her baseline. Saturating well on room air, speaking in complete sentences on my exam. Lungs are clear to auscultation bilaterally patient was not appear to be grossly volume overloaded. Laboratory work and imaging obtained. Laboratory work reviewed, WBC count 10.1, hemoglobin 8.3 (within patient's baseline range), platelets 288, sodium 125 (baseline), potassium 3.8, creatinine 2.3 (baseline), troponin undetectable, BNP 6890 (1 mo ago was 65570). Patient has remained hemodynamically stable, oxygen saturations normal. Noted to be hypertensive, however has history of hypertension and has not taken her nightly meds. Patient counseled on lab and imaging findings, recommended close PCP follow up if she continues to experience symptoms. Discharge Plan Departure Patient Disposition: Home Clinical Impression: Dyspnea Instructions: DI for Chest Pain Activity Restrictions/Additional Instructions: Your laboratory work, EKG, and chest x-ray were reassuring today. You do not have fluid on your lungs were appeared to be having an active heart attack. Continue to take your meds as prescribed. Follow up with your primary care doctor Prescriptions: No Action epinephrine 0.3 MG/0.3 ML auto-injector 0.3 mg IM X1 Qty: 1 1RF leflunomide 20 mg tablet 20 mg PO DAILY cyclobenzaprine 10 mg tablet 10 - 20 mg PO BEDTIME lovastatin 10 mg tablet 20 mg PO DAILY tramadol 50 mg tablet 50 mg PO Q6H PRN (Reason: Pain (Scale Score 4-6)) gabapentin 100 mg capsule 100 mg PO TID diphenhydramine HCl [Benadryl Allergy] 25 MG tablet 25 mg PO BEDTIME folic acid 1 MG tablet 1 mg PO DAILY fluticasone furoate 27.5 mcg/actuation spray,suspension 1 spray intranasal DAILY Qty: 5.9 0RF Rx Instructions: into each nostril benzonatate 100 mg capsule 100 mg PO TID PRN (Reason: cough) Qty: 21 1RF amlodipine [Norvasc] 5 mg Tablet 5 mg PO DAILY clopidogrel 75 mg Tablet 75 mg DAILY fexofenadine 180 mg Tablet 180 mg PO DAILY Xanax 0.5 mg PO PRN PRN (Reason: Anxiety) losartan 25 mg Tablet 50 mg PO DAILY carvedilol 25 mg tablet 25 mg PO BID alprazolam 0.5 mg Tablet 0.5 mg PO DAILY PRN (Reason: Anxiety) lidocaine 5 % Cream 1 applic TOPICAL BID PRN (Reason: Pain (Scale Score 1-3)) pantoprazole 40 mg tablet,delayed release (DR/EC) 40 mg PO DAILY Premarin 0.625 mg tablet 0.625 mg PO DAILY sertraline 25 mg tablet 25 mg PO DAILY halobetasol propionate 0.05 % Cream 1 applic TOPICAL DAILY lorazepam 1 mg Tablet 1 mg PO DAILY PRN (Reason: Anxiety) furosemide 20 mg tablet 20 mg PO BID 30 Days Qty: 60 0RF Referrals: Mckenzie Gomez ARNP [Primary Care Provider] - Stand Alone Forms: Patient Portal/API
[2023-09-15] MEDS: HYDRALAZINE 20 MG/ML VIAL 10 MG IV (19:21)
== END 2023-09-15 20:53 | disposition home or self-care (01) ==
PROVIDERS: Student in an Organized Health Care Education/Training Program; Emergency Provider Emergency Medicine; PCP Nurse Practitioner Family
DX: R07.9 Chest pain, unspecified (principal); R06.00 Dyspnea, unspecified
CPT/HCPCS: 36415; 71045; 80053; 82550; 83690; 83735; 83880; 84484; 85025; 85610; 85730; 93005; 96374; 99284; J0360